=== PATIENT | female | born 1975 | race Caucasian/White ===

== ENCOUNTER → 2019-01-21 14:55 | Outpatient (CLI) | payer OTHER, SELFPAY ==
[2019-01-21 16:37] LABS: Free T3, Triiodothyronine Free 3.63 pg/mL (2.77-5.27); Free T4, Direct Thyroxine 1.24 ng/dL (0.78-2.19)
[2019-01-21 16:51] LABS: Thyroid Stimulating Hormone 2.07 uIU/mL (0.47-4.68)
== END ==
PROVIDERS: Family Provider Family Medicine; PCP Family Medicine
DX: R53.83 Other fatigue (principal)
CPT/HCPCS: 36415; 84439; 84443; 84481

== ENCOUNTER → 2019-06-20 08:05 | Outpatient (CLI) | payer OTHER, SELFPAY ==
--- NOTE | 2019-06-20 08:08 | DI.MG.S_ITS ---
BILATERAL DIGITAL SCREENING MAMMOGRAM 3D/2D WITH CAD: 06/20/2019 CLINICAL: Baseline exam. Routine screening. No prior exams were available for comparison. There are scattered fibroglandular elements in both breasts. Current study was also evaluated with a Computer Aided Detection (CAD) system. No significant masses, calcifications, or other findings are seen in either breast. IMPRESSION: NEGATIVE There is no mammographic evidence of malignancy. A 1 year screening mammogram is recommended. This exam was interpreted at Station ID: [id number]. NOTE: For mammograms, a report in lay terms will be sent to the patient. Approximately 15% of breast malignancies will not be visualized mammographically. In the management of a palpable breast mass, a negative mammogram must not discourage biopsy of a clinically suspicious lesion. Electronically Signed By: Terry hilliard/azeb:06/20/2019 09:09:24 copy to: Adam Mcgovern letter sent: Normal Exam ACR BI-RADS Category 1: Negative [id number]
== END ==
PROVIDERS: Family Provider Family Medicine; PCP Family Medicine
DX: Z12.31 Encounter for screening mammogram for malignant neoplasm of breast (principal)
CPT/HCPCS: 77063; 77067

== ENCOUNTER → 2019-07-15 11:38 | Outpatient (CLI) | payer OTHER, SELFPAY | PROVIDERS: Family Provider Family Medicine; PCP Family Medicine; Visit Provider Physician Assistant | DX: L02.91 Cutaneous abscess, unspecified (principal) | CPT/HCPCS: 87070; 87077; 87205 ==

== ENCOUNTER → 2021-08-20 15:10 | Outpatient (CLI) | payer OTHER, SELFPAY ==
--- NOTE | 2021-08-20 15:11 | DI.RAD.S_ITS ---
PROCEDURE: XR CHEST 2V INDICATIONS: Palpitations, Dyspnea on exertion; Covid 19 inf 06/2021 TECHNIQUE: 2 views of the chest were acquired. COMPARISON: None. FINDINGS: Surgical changes and devices: None. Lungs and pleura: No consolidation, pleural effusions or pneumothorax. Prominence of the central pulmonary vasculature. Mediastinum: Mediastinal contours are normal. Heart size is normal. Bones and chest wall: No suspicious bony abnormalities. Soft tissues appear unremarkable. IMPRESSION: Prominence of the central pulmonary vasculature, which may reflect vascular congestion. Dictated by: Hong Whipple M.D. on 08/20/2021 at 15:28 Approved by: Hong Whipple M.D. on 08/20/2021 at 15:28
--- NOTE | 2021-08-20 15:11 | DI.RAD.S_ITS ---
PROCEDURE: XR SHOULDER LT MIN 2V INDICATIONS: Left shoulder pain TECHNIQUE: 3 views of the shoulder were acquired. COMPARISON: None. FINDINGS: Bones: No fractures or dislocations. No suspicious bony lesions. Visualized ribs appear intact. Soft tissues: Calcific densities overlying the humeral head, compatible with calcific tendinopathy. IMPRESSION: Rotator cuff calcific tendinopathy. Dictated by: Hong Whipple M.D. on 08/20/2021 at 15:29 Approved by: Hong Whipple M.D. on 08/20/2021 at 15:29
== END ==
PROVIDERS: Family Provider Family Medicine; PCP Family Medicine; Referring Provider Physician Assistant; Visit Provider Physician Assistant
DX: M25.512 Pain in left shoulder (principal); R06.00 Dyspnea, unspecified; R53.83 Other fatigue; R63.0 Anorexia; R00.2 Palpitations; Z86.16 Personal history of COVID-19
CPT/HCPCS: 71046; 73030

== ENCOUNTER → 2021-11-27 11:04 | Outpatient (CLI) | payer OTHER, SELFPAY ==
[2021-11-27 12:43] LABS: Cholesterol 260 mg/dL (140-199); HDL Cholesterol 36 mg/dL (40-60); LDL Cholesterol Calculated 180 mg/dL (<100); Triglycerides 222 mg/dL (35-150)
[2021-11-27 13:15] LABS: Thyroid Stimulating Hormone 0.738 uIU/mL (0.47-4.68)
[2021-11-27 15:58] LABS: Creatinine Urine Random 194.3 mg/dL
[2021-11-27 16:03] LABS: Microalbumi Creatinin Ratio Ur 28.3 ug/mg CR (<30); Microalbumin Urine Random 5.5 mg/dL (0-1.6)
== END ==
PROVIDERS: Family Provider Family Medicine; PCP Family Medicine; Referring Provider Physician Assistant; Visit Provider Physician Assistant
DX: I10 Essential (primary) hypertension (principal); R53.83 Other fatigue; Z13.220 Encounter for screening for lipoid disorders; Z13.6 Encounter for screening for cardiovascular disorders
CPT/HCPCS: 36415; 80061; 82043; 82570; 84443

== ENCOUNTER 2021-12-30 16:00 | Outpatient (RCR) | payer OTHER, SELFPAY ==
--- NOTE | 2021-10-01 17:16 | PT.OIE ---
Current Diagnoses Pain in left shoulder (10/01/21) Radiculopathy, site unspecified (10/01/21) Cervicalgia (10/01/21) Muscle weakness (generalized) (10/01/21) Other muscle spasm (10/01/21) Past Medical History (Last Updated 09/15/21 @ 15:48 by Tg Lowe PA-C) Anaphylactic reaction Asthma Cervical pain (neck) Chicken pox (1979) Chronic headaches (1989) COVID-19 virus infection CTS (carpal tunnel syndrome) (2002) Eczema IBS (irritable bowel syndrome) (2003) Left shoulder pain Migraines (1989) Myalgia after COVID-19 vaccination Plantar warts Radiculopathy affecting upper extremity Recurrent sinusitis Skin cancer (1998) Status post wrist surgery (10/2002) Past Surgical History (Last Reviewed 08/16/20 @ 17:03 by ALBERTO Reis) Anesthesia Status post cholecystectomy (12/2003) Status post endoscopic retrograde cholangiopancreatography Status post LASIK surgery (04/2000) Status post wrist surgery (10/2002) Visit Care Team Role Provider Type Adam Mcgovern MD Family Provider Physician Primary Care Provider Specialty: Family Practice Address: [address] [place] [address], [facility] Email: [email or web address] Lowe PA-C Attending Provider Advanced Aquatic Performer Referring Provider Specialty: Medical Address: [address], [employer] Email: [email or web address] Physical Therapy Initial Evaluation PT-OP-A Visit Information Start: 09/27/21 18:38 Freq: Status: Active Protocol: Document 10/01/21 15:03 LRN (Rec: 10/01/21 16:59 LRN [id number]) Out-Patient Physical Therapy Visit Information Visit Information Visit Type Initial Evaluation Visit Start Time 15:03 Visit Stop Time 15:57 Total Visit Minutes 54 Visit Number 1 Evaluation Information Evaluation Date 10/01/21 Precautions Precautions TAPE ALLERGIES. PT-OP-B Current Condition Start: 09/27/21 18:38 Freq: Status: Active Protocol: Document 10/01/21 15:03 LRN (Rec: 10/01/21 16:59 LRN [id number]) Current Condition History of Current Condition Onset Date Jul 28, 2021 Current Complaints Severe pain down the L arm and weakness, numbness in hands. History of Current Condition L shoulder and neck pain. Covid in June. Was constantly fatigued, got booster and within 48 hours could hardly move the L shoulder. In August, started to get tingling and numbness in the lateral hands (little fingers on lateral sides and tips of 4th & 5th fingers) and was told it was inflammation in the neck and has radiated into the shoulders. States she has sheets of white pain down the entire L arm, like she hit her funny bone. The more active she is, the more pain she has. Sleeping is very difficult because she is a side sleeper and briana has had to adjust her sleeping to being on her back. She also has heart arrhythmia onset due to COVID. MH and placing her arm overhead helps decrease the pain. Prior Treatments and Tests Gabapentin to help sleep at night. Future Testing and Treatments Planned Massage therapy & accupuncture appointments. Treatment Goals Patient/Caregiver Goals Pt goal with therapy is to improve ability to sleep, and be able to use L dominant hand correctly, and be able to type on computer. Prior Functional Status Baseline Function- ADL's Independent Baseline Function- Mobility Independent Baseline Function- Work/School Independent Baseline Function- Other Able to sleep on 6-7 hrs at night on sides. Able to get up/down from floor without difficulty Current Functional Impairments (Reported) Functional Limitations- ADL's Not able to sleep on sides due to L shoulder pain. Not able to get up/down from floor. 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 Functional Limitations- Recreation/ Can't do sewing due to pain Hobbies and low stamina. Personal Factors Other Personal Factors That May Effect Hx of chronic headaches. 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 L handed dominant. PT-OP-C Subjective Start: 09/27/21 18:38 Freq: Status: Active Protocol: Document 10/01/21 15:03 LRN (Rec: 10/01/21 16:59 LRN [id number]) Patient Questionnaires Neck Disability Index NDI Score 13 Neck Disability Index Impairment 20 to 39% Impaired (Score 10- 19) Quick Dash- Upper Extremity Quick Dash UE Score 68.18 Quick Dash UE Impairment 60 to 79% Impaired (Score 60- 79) OP-PT Pain Assessment Pain Assessment Grid Paper Pain Assessment Grid Completed Yes Location L shoulder Pain Location Details Pain down back side in AM, entire arm painful in PM Intensity 6 Scale Used Numeric (0 - 10) Description Cramping,Sharp,Shooting,Spasm, Tingling Description- Other Fatiguing Frequency Constant Radiating Location Down arm Pain Aggravating Factors Activity Other Pain Aggravating Factors Lying on L shoulder and increased pain with progression of the day. Pain Alleviating Factors Heat Neck Intensity 0 Scale Used Numeric (0 - 10) Home Pain Medication Use Pain Medications Used Yes Home Pain Medication Frequency Gabapentin nightly & Advil throughout the day. PT-OP-E Functional Tests Start: 09/27/21 18:38 Freq: Status: Active Protocol: Document 10/01/21 15:03 LRN (Rec: 10/01/21 16:59 LRN [id number]) Functional Tests Apley's Scratch Test Action 1- Left Below superior spine of scapula Action 1- Right Below superior spine of scapula Action 2- Left T3 Action 2- Right T3 Action 3- Left T8 Action 3- Right T8 PT-OP-H Neuro Start: 09/27/21 18:38 Freq: Status: Active Protocol: Document 10/01/21 15:03 LRN (Rec: 10/01/21 16:59 LRN [id number]) Sensation Evaluation Gross Sensation Gross Sensation Left UE Impaired,Right UE Impaired Sensation Description Tingling,Pins & Tabor Dermatome Impairments C8 Deep Tendon Reflex & Clonus Assessment Deep Tendon Reflex Bilateral Tricep Deep Tendon Reflex 1+ Diminished Bilateral Brachioradialis Deep Tendon Reflex 2+ Normal Roddy Biceps Deep Tendon Reflex 3+ Normal But Brisk PT-OP-J Posture/Palpation/Skin Start: 09/27/21 18:38 Freq: Status: Active Protocol: Document 10/01/21 15:03 LRN (Rec: 10/01/21 16:59 LRN [id number]) Posture Evaluation Position Standing Head/C-Spine Posture Forward Head T-Spine Posture Flattened L-Spine Posture Increased Lordosis Shoulder Posture (L) Forward Arm Posture (L) Internally Rotated,(R) Internally Rotated Pelvis Posture (L) Iliac Crest Superior Knee Posture (L) Genu Valgus,(R) Genu Valgus Palpation Assessment Location R Scapula Palpation Location Scapular positioning Palpation Details Protracted L Scapula Palpation Location Medial border Palpation Findings Muscle Guarding,Tenderness Posterior Neck Palpation Location C7-T2, L UT Palpation Findings Soft Tissue Tightness, Tenderness PT-OP-K Range of Motion Start: 09/27/21 18:38 Freq: Status: Active Protocol: Document 10/01/21 15:03 LRN (Rec: 10/01/21 16:59 LRN [id number]) Cervical Spine Range of Motion Cervical Spine Active Degrees Testing Position Sitting Flexion 55 Extension 60 Rotation Left 80 Rotation Right 80 Lateral Flexion Left 38 Lateral Flexion Right 32 ROM Limitations Muscle Weakness Shoulder Goniometric Range of Motion Shoulder Right Active Shoulder ROM WFL Yes Testing Position Sitting Flexion 180 Abduction 180 External Rotation at 0 degrees Abduction 70 Left Active Shoulder ROM WFL Yes Testing Position Sitting Flexion 180 Extension 180 External Rotation at 0 degrees Abduction 70 Elbow/Forearm Range of Motion Elbow/Forearm Right Active Elbow/Forearm ROM WFL Yes ROM Testing Position Sitting Left Active Elbow/Forearm ROM WFL Yes ROM Testing Position Sitting PT-OP-L Special Tests Start: 09/27/21 18:38 Freq: Status: Active Protocol: Document 10/01/21 15:03 LRN (Rec: 10/01/21 16:59 LRN [id number]) Special Tests Cervical Spine Special Tests Upper Limb Tension Test Test Results Positive ulnar n bilaterally and medial n. L UE, neg radial n.test Comments Stretch felt. Vertebral Artery Test Results Negative bilaterally Traction Test Results Onset feeling of warmth f/b tingling in R arm Comments Inconclusive results Foraminal Compression Test Results Negative bilaterally Spurling's Test Test Results Negative bilaterally PT-OP-M Strength Start: 09/27/21 18:38 Freq: Status: Active Protocol: Document 10/01/21 15:03 LRN (Rec: 10/01/21 16:59 LRN [id number]) Cervical Spine Strength Cervical Spine Manual Muscle Testing Testing Position Sitting Comments Generally 5/5 Shoulder Strength Shoulder Manual Muscle Testing Right Flexion 5 Normal Extension 5 Normal Abduction (C5) 5 Normal Adduction 5 Normal External Rotation 5 Normal Internal Rotation 5 Normal Left Flexion 5 Normal Extension 5 Normal Abduction (C5) 5 Normal Adduction 4 Good External Rotation 5 Normal Internal Rotation 5 Normal Comments Pain in medial border of scapula with MMT of shoulder flex & IR Elbow/Forearm Strength Elbow and Forearm Manual Muscle Testing Right Flexion (C6) 5 Normal Extension (C7) 5 Normal Left Flexion (C6) 5 Normal Extension (C7) 4 Good PT-OP-Q Treatments Start: 09/27/21 18:38 Freq: Status: Active Protocol: Document 10/01/21 15:03 LRN (Rec: 10/01/21 16:59 LRN [id number]) Self-Care/Home Management Treatment Education Other Education Discussed results of evaluation, goals, and plan of care (POC). Pt agreeable to goals and POC. Activities Self-Care/Home Management Activities Pt I/S in deep cervical neck flexor contraction for improving sitting posture and added thoracic flexion to her home pec stretch routine. PT-OP-T Assessment and Plan Start: 09/27/21 18:38 Freq: Status: Active Protocol: Document 10/01/21 15:03 LRN (Rec: 10/01/21 16:59 LRN [id number]) Physical Therapy Assessment Rehab Potential Rehabilitation Potential Good Evaluation Complexity Number of Personal Factors/Comorbidities 3 or More Number of Body Systems Impaired 4 or More Clinical Presentation at Evaluation Evolving Impairments Impairments Activity Tolerance,Pain, Posture,Strength Goals Three Impairment Decreased L UE function ( QUICKdash score 68). Impairment Quickdash: 60-79% impaired ( score 60-70). Short Term Goal (STG) Pt will be able to report improved use of her L dominant hand with more accuracy with brushing of teeth. STG Duration 11/15/21 [place] Goal (LTG) Pt will be able to type on computer with accuracy of prior function. LTG Duration 12/30/21 Two Impairment Decreased ability to sleep at night due to L shoulder pain. Short Term Goal (STG) Pt will be educated in proper nighttime posturing for sleep to minimize L shoulder pain. STG Duration 10/11/21 Intermediate Goal (LTG) Pt will be able to improve ability to sleep at night to 6 -7 hrs. LTG Duration 12/30/21 One Impairment Pt lacks appropriates self care HEP. Short Term Goal (STG) Pt will be educated in proper head/neck posturing. STG Duration 10/18/21 Intermediate Goal (LTG) Pt will be independent in a self care HEP shoulder & elbow strengthening and ex's to assist in proper posturing. LTG Duration 12/30/21 Assessment Summary Assessment Pt presents with mechanical and soft tissue dysfunction of the cervical and thoracic spine with symptoms of C7 neurological L UE pain and sensation changes in the bilateral lateral hands and little fingers (on lateral side and finger tips). The pt has numbness tingling in the R arm but no pain. She demonstrates some tightness in her L upper trapezius muscle, weakness in her L shoulder adductors and L triceps (C7), and pain down medial border of L scapula. The pt will benefit from skilled physical therapy to work towards achieving the above stated goals. Physical Therapy Plan Frequency and Duration Frequency of Treatment 2x/Week Plan of Care Start Date 10/01/21 Plan of Care End Date 12/30/21 Therapeutic Interventions Therapeutic Interventions Home Exercise Program,Joint Mobilizations,Manual Therapy, Patient/Caregiver Education, Self-Care/Home Management,Soft Tissue Mobilization, Therapeutic Exercises Modalities Cold Pack/Ice Massage,Electric Stimulation,Hot Packs, Ultrasound Next Visit Focus/Plan Next Visit Plan Educate pt in proper proper posturing of head/neck, Educate pt in proper nighttime sleeping position to minimize L shoulder pain, STM of cervical/thoracic spine as needed. JMT: C7. Exer: C.AROM & L UT stretch ( and for HEP), L tricep & shoulder AD strengthening. Stretch: mid thoracic rotation & flexion. End MH/IFES [L scapula] or [C7 /T1]
--- NOTE | 2021-10-01 17:16 | PT.OPPOC ---
Physical, Occupational & Speech Therapy At [facility] Current Diagnoses Pain in left shoulder (10/01/21) Radiculopathy, site unspecified (10/01/21) Cervicalgia (10/01/21) Muscle weakness (generalized) (10/01/21) Other muscle spasm (10/01/21) Visit Care Team Role Provider Type Adam Mcgovern MD Family Provider Physician Primary Care Provider Specialty: Family Practice Address: [address] [place] [address], [id number] Email: [email or web address] Lowe PA-C Attending Provider Advanced Assistant Designer Referring Provider Specialty: Medical Address: [address], [address] Email: [email or web address] Plan Of Care PT-OP-T Assessment and Plan Start: 09/27/21 18:38 Freq: Status: Active Protocol: Document 10/01/21 15:03 LRN (Rec: 10/01/21 16:59 LRN [id number]) Physical Therapy Assessment Rehab Potential Rehabilitation Potential Good Evaluation Complexity Number of Personal Factors/Comorbidities 3 or More Number of Body Systems Impaired 4 or More Clinical Presentation at Evaluation Evolving Impairments Impairments Activity Tolerance,Pain, Posture,Strength Goals Three Impairment Decreased L UE function ( QUICKdash score 68). Impairment Quickdash: 60-79% impaired ( score 60-70). Short Term Goal (STG) Pt will be able to report improved use of her L dominant hand with more accuracy with brushing of teeth. STG Duration 11/15/21 Fountain Operator Goal (LTG) Pt will be able to type on computer with accuracy of prior function. LTG Duration 12/30/21 Two Impairment Decreased ability to sleep at night due to L shoulder pain. Short Term Goal (STG) Pt will be educated in proper nighttime posturing for sleep to minimize L shoulder pain. STG Duration 10/11/21 Senior Care Goal (LTG) Pt will be able to improve ability to sleep at night to 6 -7 hrs. LTG Duration 12/30/21 One Impairment Pt lacks appropriates self care HEP. Short Term Goal (STG) Pt will be educated in proper head/neck posturing. STG Duration 10/18/21 Senior Care Goal (LTG) Pt will be independent in a self care HEP shoulder & elbow strengthening and ex's to assist in proper posturing. LTG Duration 12/30/21 Assessment Summary Assessment Pt presents with mechanical and soft tissue dysfunction of the cervical and thoracic spine with symptoms of C7 neurological L UE pain and sensation changes in the bilateral lateral hands and little fingers (on lateral side and finger tips). The pt has numbness tingling in the R arm but no pain. She demonstrates some tightness in her L upper trapezius muscle, weakness in her L shoulder adductors and L triceps (C7), and pain down medial border of L scapula. The pt will benefit from skilled physical therapy to work towards achieving the above stated goals. Physical Therapy Plan Frequency and Duration Frequency of Treatment 2x/Week Plan of Care Start Date 10/01/21 Plan of Care End Date 12/30/21 Therapeutic Interventions Therapeutic Interventions Home Exercise Program,Joint Mobilizations,Manual Therapy, Patient/Caregiver Education, Self-Care/Home Management,Soft Tissue Mobilization, Therapeutic Exercises Modalities Cold Pack/Ice Massage,Electric Stimulation,Hot Packs, Ultrasound Next Visit Focus/Plan Next Visit Plan Educate pt in proper proper posturing of head/neck, Educate pt in proper nighttime sleeping position to minimize L shoulder pain, STM of cervical/thoracic spine as needed. JMT: C7. Exer: C.AROM & L UT stretch ( and for HEP), L tricep & shoulder AD strengthening. Stretch: mid thoracic rotation & flexion. End MH/IFES [L scapula] or [C7 /T1] Plan of Care Dates Plan of Care Start Date 10/01/21 Plan of Care End Date 12/30/21 Electronically Signed by: Maribel Elliott, PT 10/01/21 [id number] Please Sign and Return: I have reviewed this Plan of Care and certify that the skilled therapy services above are required to meet the patient?s needs. Physician Signature Date Printed Name and Credentials Clinical Instructor Signature Printed Name and Credentials
--- NOTE | 2021-10-12 16:09 | PT.OTN ---
Current Diagnoses Pain in left shoulder (10/12/21) Radiculopathy, site unspecified (10/12/21) Cervicalgia (10/12/21) Muscle weakness (generalized) (10/12/21) Other muscle spasm (10/12/21) Physical Therapy Treatment Note PT-OP-A Visit Information Start: 09/27/21 18:38 Freq: Status: Active Protocol: Document 10/12/21 15:05 LRN (Rec: 10/12/21 16:07 LRN [id number]) Out-Patient Physical Therapy Visit Information Visit Information Visit Type Treatment Note Visit Start Time 15:05 Visit Stop Time 15:49 Total Visit Minutes 44 Visit Number 2 Evaluation Information Evaluation Date 10/01/21 Precautions Precautions TAPE ALLERGIES. PT-OP-B Current Condition Start: 09/27/21 18:38 Freq: Status: Active Protocol: Document 10/01/21 15:03 LRN (Rec: 10/01/21 16:59 LRN [id number]) Current Condition History of Current Condition Onset Date Jul 28, 2021 Current Complaints Severe pain down the L arm and weakness, numbness in hands. History of Current Condition L shoulder and neck pain. Covid in June. Was constantly fatigued, got booster and within 48 hours could hardly move the L shoulder. In August, started to get tingling and numbness in the lateral hands (little fingers on lateral sides and tips of 4th & 5th fingers) and was told it was inflammation in the neck and has radiated into the shoulders. States she has sheets of white pain down the entire L arm, like she hit her funny bone. The more active she is, the more pain she has. Sleeping is very difficult because she is a side sleeper and se has had to adjust her sleeping to being on her back. She also has heart arrhythmia onset due to COVID. MH and placing her arm overhead helps decrease the pain. Prior Treatments and Tests Gabapentin to help sleep at night. Future Testing and Treatments Planned Massage therapy & accupuncture appointments. Treatment Goals Patient/Caregiver Goals Pt goal with therapy is to improve ability to sleep, and be able to use L dominant hand correctly, and be able to type on computer. Prior Functional Status Baseline Function- ADL's Independent Baseline Function- Mobility Independent Baseline Function- Work/School Independent Baseline Function- Other Able to sleep on 6-7 hrs at night on sides. Able to get up/down from floor without difficulty Current Functional Impairments (Reported) Functional Limitations- ADL's Not able to sleep on sides due to L shoulder pain. Not able to get up/down from floor. 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 Functional Limitations- Recreation/ Can't do sewing due to pain Hobbies and low stamina. Personal Factors Other Personal Factors That May Effect Hx of chronic headaches. 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 L handed dominant. PT-OP-C Subjective Start: 09/27/21 18:38 Freq: Status: Active Protocol: Document 10/12/21 15:05 LRN (Rec: 10/12/21 16:07 LRN [id number]) OP-PT Subjective Patient Comments Patient Comments States she sleeps on her back and has a sleep number pillow and that keeps her head/neck in alignment. Less tingling in the both hands and no numbness in the ring finger. Starts without numbness or tingling, but comes on as day progressess. Today numbnes/ tingling in R fingers, L arm numbness, mostly tingling. PT-OP-E Functional Tests Start: 09/27/21 18:38 Freq: Status: Active Protocol: Document 10/01/21 15:03 LRN (Rec: 10/01/21 16:59 LRN [id number]) Functional Tests Apley's Scratch Test Action 1- Left Below superior spine of scapula Action 1- Right Below superior spine of scapula Action 2- Left T3 Action 2- Right T3 Action 3- Left T8 Action 3- Right T8 PT-OP-H Neuro Start: 09/27/21 18:38 Freq: Status: Active Protocol: Document 10/01/21 15:03 LRN (Rec: 10/01/21 16:59 LRN [id number]) Sensation Evaluation Gross Sensation Gross Sensation Left UE Impaired,Right UE Impaired Sensation Description Tingling,Pins & Draper Dermatome Impairments C8 Deep Tendon Reflex & Clonus Assessment Deep Tendon Reflex Bilateral Tricep Deep Tendon Reflex 1+ Diminished Bilateral Brachioradialis Deep Tendon Reflex 2+ Normal Roddy Biceps Deep Tendon Reflex 3+ Normal But Brisk PT-OP-J Posture/Palpation/Skin Start: 09/27/21 18:38 Freq: Status: Active Protocol: Document 10/01/21 15:03 LRN (Rec: 10/01/21 16:59 LRN [id number]) Posture Evaluation Position Standing Head/C-Spine Posture Forward Head T-Spine Posture Flattened L-Spine Posture Increased Lordosis Shoulder Posture (L) Forward Arm Posture (L) Internally Rotated,(R) Internally Rotated Pelvis Posture (L) Iliac Crest Superior Knee Posture (L) Genu Valgus,(R) Genu Valgus Palpation Assessment Location R Scapula Palpation Location Scapular positioning Palpation Details Protracted L Scapula Palpation Location Medial border Palpation Findings Muscle Guarding,Tenderness Posterior Neck Palpation Location C7-T2, L UT Palpation Findings Soft Tissue Tightness, Tenderness PT-OP-K Range of Motion Start: 09/27/21 18:38 Freq: Status: Active Protocol: Document 10/01/21 15:03 LRN (Rec: 10/01/21 16:59 LRN [id number]) Cervical Spine Range of Motion Cervical Spine Active Degrees Testing Position Sitting Flexion 55 Extension 60 Rotation Left 80 Rotation Right 80 Lateral Flexion Left 38 Lateral Flexion Right 32 ROM Limitations Muscle Weakness Shoulder Goniometric Range of Motion Shoulder Right Active Shoulder ROM WFL Yes Testing Position Sitting Flexion 180 Abduction 180 External Rotation at 0 degrees Abduction 70 Left Active Shoulder ROM WFL Yes Testing Position Sitting Flexion 180 Extension 180 External Rotation at 0 degrees Abduction 70 Elbow/Forearm Range of Motion Elbow/Forearm Right Active Elbow/Forearm ROM WFL Yes ROM Testing Position Sitting Left Active Elbow/Forearm ROM WFL Yes ROM Testing Position Sitting PT-OP-L Special Tests Start: 09/27/21 18:38 Freq: Status: Active Protocol: Document 10/01/21 15:03 LRN (Rec: 10/01/21 16:59 LRN [id number]) Special Tests Cervical Spine Special Tests Upper Limb Tension Test Test Results Positive ulnar n bilaterally and medial n. L UE, neg radial n.test Comments Stretch felt. Vertebral Artery Test Results Negative bilaterally Traction Test Results Onset feeling of warmth f/b tingling in R arm Comments Inconclusive results Foraminal Compression Test Results Negative bilaterally Spurling's Test Test Results Negative bilaterally PT-OP-M Strength Start: 09/27/21 18:38 Freq: Status: Active Protocol: Document 10/01/21 15:03 LRN (Rec: 10/01/21 16:59 LRN [id number]) Cervical Spine Strength Cervical Spine Manual Muscle Testing Testing Position Sitting Comments Generally 5/5 Shoulder Strength Shoulder Manual Muscle Testing Right Flexion 5 Normal Extension 5 Normal Abduction (C5) 5 Normal Adduction 5 Normal External Rotation 5 Normal Internal Rotation 5 Normal Left Flexion 5 Normal Extension 5 Normal Abduction (C5) 5 Normal Adduction 4 Good External Rotation 5 Normal Internal Rotation 5 Normal Comments Pain in medial border of scapula with MMT of shoulder flex & IR Elbow/Forearm Strength Elbow and Forearm Manual Muscle Testing Right Flexion (C6) 5 Normal Extension (C7) 5 Normal Left Flexion (C6) 5 Normal Extension (C7) 4 Good PT-OP-Q Treatments Start: 09/27/21 18:38 Freq: Status: Active Protocol: Document 10/12/21 15:05 LRN (Rec: 10/12/21 16:07 LRN [id number]) Therapeutic Exercises Supine Exercises Supine to Sit Supine Exercise Name Sup to sit traninng while holding head/neck in good posture Reps/Minutes 3' Comments phys & v cuing needed throughout transfer and reinforced during sitting Deep Cervical Neck Flexors Supine Exercise Name Head to direction of distraction Reps/Minutes 5 Hold, intermittent for 3' Standing Exercises Postural training Standing Exercise Name Postural trng: neck elongated, steam pan sponger pelvic tilt, TA on, knees relaxed Reps/Minutes 3' Manual Therapy Treatment Soft Tissue Mobilization Paraspinals Body Location Lower C/S & upper T/S Mobilization Type Strumming,Sustained Pressure Intensity/Depth Moderate Body Position Supine Joint Mobilizations C7, T1 Joint C7, T1 Direction PA Body Position Supine Reps/Duration 6' Manual Traction Cervical Details Traction in various angle of pull (C7, axial, and 30 deg's flex) Body Position Supine Reps/Duration 3x Self-Care/Home Management Treatment Education Other Education Educated pt in proper posturing of head/neck in sitting, in car, when using computer and reading a book. Educated pt in proper head/ neck nighttime sleeping posture (to minimize L shoulder pain). Activities Self-Care/Home Management Activities Reviewed deep Cervical neck flexor ex for maintaining good head/neck posture. I/S pt to use wall for her thoracic ex of breathing to open the chest. PT-OP-T Assessment and Plan Start: 09/27/21 18:38 Freq: Status: Active Protocol: Document 10/12/21 15:05 LRN (Rec: 02/08/22 16:07 LRN [id number]) Physical Therapy Assessment Goals Three Impairment Decreased L UE function ( QUICKdash score 68). Impairment Quickdash: 60-79% impaired ( score 60-70). Short Term Goal (STG) Pt will be able to report improved use of her L dominant hand with more accuracy with brushing of teeth. STG Duration 11/15/21 Veneer Cutter Goal (LTG) Pt will be able to type on computer with accuracy of prior function. LTG Duration 12/30/21 Two Impairment Decreased ability to sleep at night due to L shoulder pain. Short Term Goal (STG) Pt will be educated in proper nighttime posturing for sleep to minimize L shoulder pain. STG Duration 10/11/21 (10/12/21: MET GOAL) Veneer Cutter Goal (LTG) Pt will be able to improve ability to sleep at night to 6 -7 hrs. LTG Duration 12/30/21 One Impairment Pt lacks appropriates self care HEP. Short Term Goal (STG) Pt will be educated in proper head/neck posturing. STG Duration 10/18/21 (10/12/21: MET GOAL) Veneer Cutter Goal (LTG) Pt will be independent in a self care HEP shoulder & elbow strengthening and ex's to assist in proper posturing. LTG Duration 12/30/21 Progress Towards Goals Progress Towards Goals Progressing Toward Goals Progress Comments STG #1, #2: MET GOAL. Assessment Summary Assessment + response to STM of lower C/S and upper T/S paraspinals and balancing of C7/T1. Post therapy pt had resolve of toothache pain in the L elbow and tingling of fingers. Numbness of the fingertips was still present. Physical Therapy Plan Frequency and Duration Frequency of Treatment 2x/Week Plan of Care Start Date 10/01/21 Plan of Care End Date 12/30/21 Next Visit Focus/Plan Next Visit Plan STM of cervical/thoracic spine as needed. JMT: C7. Exer: C.AROM & L UT stretch ( and for HEP), L tricep & shoulder AD strengthening. Stretch: mid thoracic rotation & flexion. End MH/IFES [L scapula] or [C7 /T1]
--- NOTE | 2021-10-15 16:07 | PT.OTN ---
Current Diagnoses Pain in left shoulder (10/15/21) Radiculopathy, site unspecified (10/15/21) Cervicalgia (10/15/21) Muscle weakness (generalized) (10/15/21) Other muscle spasm (10/15/21) Physical Therapy Treatment Note PT-OP-A Visit Information Start: 09/27/21 18:38 Freq: Status: Active Protocol: Document 10/15/21 15:04 LRN (Rec: 10/15/21 16:05 LRN [id number]) Out-Patient Physical Therapy Visit Information Visit Information Visit Type Treatment Note Visit Start Time 15:04 Visit Stop Time 15:45 Total Visit Minutes 45 Visit Number 3 Evaluation Information Evaluation Date 10/01/21 Precautions Precautions TAPE ALLERGIES. PT-OP-B Current Condition Start: 09/27/21 18:38 Freq: Status: Active Protocol: Document 10/01/21 15:03 LRN (Rec: 10/01/21 16:59 LRN [id number]) Current Condition History of Current Condition Onset Date Jul 28, 2021 Current Complaints Severe pain down the L arm and weakness, numbness in hands. History of Current Condition L shoulder and neck pain. Covid in June. Was constantly fatigued, got booster and within 48 hours could hardly move the L shoulder. In August, started to get tingling and numbness in the lateral hands (little fingers on lateral sides and tips of 4th & 5th fingers) and was told it was inflammation in the neck and has radiated into the shoulders. States she has sheets of white pain down the entire L arm, like she hit her funny bone. The more active she is, the more pain she has. Sleeping is very difficult because she is a side sleeper and se has had to adjust her sleeping to being on her back. She also has heart arrhythmia onset due to COVID. MH and placing her arm overhead helps decrease the pain. Prior Treatments and Tests Gabapentin to help sleep at night. Future Testing and Treatments Planned Massage therapy & accupuncture appointments. Treatment Goals Patient/Caregiver Goals Pt goal with therapy is to improve ability to sleep, and be able to use L dominant hand correctly, and be able to type on computer. Prior Functional Status Baseline Function- ADL's Independent Baseline Function- Mobility Independent Baseline Function- Work/School Independent Baseline Function- Other Able to sleep on 6-7 hrs at night on sides. Able to get up/down from floor without difficulty Current Functional Impairments (Reported) Functional Limitations- ADL's Not able to sleep on sides due to L shoulder pain. Not able to get up/down from floor. 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 Functional Limitations- Recreation/ Can't do sewing due to pain Hobbies and low stamina. Personal Factors Other Personal Factors That May Effect Hx of chronic headaches. 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 L handed dominant. PT-OP-C Subjective Start: 09/27/21 18:38 Freq: Status: Active Protocol: Document 10/15/21 15:04 LRN (Rec: 10/15/21 16:05 LRN [id number]) OP-PT Subjective Patient Comments Patient Comments STates her muscles are getting tired from maintaining good posture;therefore is more sore . HAsn't been using towel roll at school but uses it in the car. PT-OP-E Functional Tests Start: 09/27/21 18:38 Freq: Status: Active Protocol: Document 10/01/21 15:03 LRN (Rec: 10/01/21 16:59 LRN [id number]) Functional Tests Apley's Scratch Test Action 1- Left Below superior spine of scapula Action 1- Right Below superior spine of scapula Action 2- Left T3 Action 2- Right T3 Action 3- Left T8 Action 3- Right T8 PT-OP-H Neuro Start: 09/27/21 18:38 Freq: Status: Active Protocol: Document 10/01/21 15:03 LRN (Rec: 10/01/21 16:59 LRN [id number]) Sensation Evaluation Gross Sensation Gross Sensation Left UE Impaired,Right UE Impaired Sensation Description Tingling,Pins & Comstock Dermatome Impairments C8 Deep Tendon Reflex & Clonus Assessment Deep Tendon Reflex Bilateral Tricep Deep Tendon Reflex 1+ Diminished Bilateral Brachioradialis Deep Tendon Reflex 2+ Normal Roddy Biceps Deep Tendon Reflex 3+ Normal But Brisk PT-OP-J Posture/Palpation/Skin Start: 09/27/21 18:38 Freq: Status: Active Protocol: Document 10/01/21 15:03 LRN (Rec: 10/01/21 16:59 LRN [id number]) Posture Evaluation Position Standing Head/C-Spine Posture Forward Head T-Spine Posture Flattened L-Spine Posture Increased Lordosis Shoulder Posture (L) Forward Arm Posture (L) Internally Rotated,(R) Internally Rotated Pelvis Posture (L) Iliac Crest Superior Knee Posture (L) Genu Valgus,(R) Genu Valgus Palpation Assessment Location R Scapula Palpation Location Scapular positioning Palpation Details Protracted L Scapula Palpation Location Medial border Palpation Findings Muscle Guarding,Tenderness Posterior Neck Palpation Location C7-T2, L UT Palpation Findings Soft Tissue Tightness, Tenderness PT-OP-K Range of Motion Start: 09/27/21 18:38 Freq: Status: Active Protocol: Document 10/01/21 15:03 LRN (Rec: 10/01/21 16:59 LRN [id number]) Cervical Spine Range of Motion Cervical Spine Active Degrees Testing Position Sitting Flexion 55 Extension 60 Rotation Left 80 Rotation Right 80 Lateral Flexion Left 38 Lateral Flexion Right 32 ROM Limitations Muscle Weakness Shoulder Goniometric Range of Motion Shoulder Right Active Shoulder ROM WFL Yes Testing Position Sitting Flexion 180 Abduction 180 External Rotation at 0 degrees Abduction 70 Left Active Shoulder ROM WFL Yes Testing Position Sitting Flexion 180 Extension 180 External Rotation at 0 degrees Abduction 70 Elbow/Forearm Range of Motion Elbow/Forearm Right Active Elbow/Forearm ROM WFL Yes ROM Testing Position Sitting Left Active Elbow/Forearm ROM WFL Yes ROM Testing Position Sitting PT-OP-L Special Tests Start: 09/27/21 18:38 Freq: Status: Active Protocol: Document 10/01/21 15:03 LRN (Rec: 10/01/21 16:59 LRN [id number]) Special Tests Cervical Spine Special Tests Upper Limb Tension Test Test Results Positive ulnar n bilaterally and medial n. L UE, neg radial n.test Comments Stretch felt. Vertebral Artery Test Results Negative bilaterally Traction Test Results Onset feeling of warmth f/b tingling in R arm Comments Inconclusive results Foraminal Compression Test Results Negative bilaterally Spurling's Test Test Results Negative bilaterally PT-OP-M Strength Start: 09/27/21 18:38 Freq: Status: Active Protocol: Document 10/01/21 15:03 LRN (Rec: 10/01/21 16:59 LRN [id number]) Cervical Spine Strength Cervical Spine Manual Muscle Testing Testing Position Sitting Comments Generally 5/5 Shoulder Strength Shoulder Manual Muscle Testing Right Flexion 5 Normal Extension 5 Normal Abduction (C5) 5 Normal Adduction 5 Normal External Rotation 5 Normal Internal Rotation 5 Normal Left Flexion 5 Normal Extension 5 Normal Abduction (C5) 5 Normal Adduction 4 Good External Rotation 5 Normal Internal Rotation 5 Normal Comments Pain in medial border of scapula with MMT of shoulder flex & IR Elbow/Forearm Strength Elbow and Forearm Manual Muscle Testing Right Flexion (C6) 5 Normal Extension (C7) 5 Normal Left Flexion (C6) 5 Normal Extension (C7) 4 Good PT-OP-Q Treatments Start: 09/27/21 18:38 Freq: Status: Active Protocol: Document 10/15/21 15:04 LRN (Rec: 10/15/21 16:05 LRN [id number]) Therapeutic Exercises Standing Exercises Shoulder rolls Standing Exercise Name Fwd/Bkwd shoulder rolls Side bilateral Comments DC'd bkwd rolls due to onset of numbness tingling in hands. Postural training Standing Exercise Name Postural trng: neck elongated, pizza hut assistant pelvic tilt, TA on, knees relaxed Reps/Minutes 3' Manual Therapy Treatment Soft Tissue Mobilization Paraspinals Body Location Cervical R>L Mobilization Type Strumming,Sustained Pressure Intensity/Depth Moderate Body Position Supine Joint Mobilizations Thoracic spine Joint Thoracic spine Direction rotation Grade II Body Position Prone Reps/Duration 12' C7, T1 Joint C6-C7, C7-T1 Direction PA Grade II Body Position Supine Reps/Duration 8' Manual Traction Cervical Details Traction in various angle of pull (C7, axial, and 30 deg's flex) Body Position Supine Reps/Duration 3x Comments 9' Self-Care/Home Management Treatment Education Patient Education Home Exercise Program Activities Self-Care/Home Management Activities I/S pt to do forward shoulder rolls 5x when needed to relieve tension. PT-OP-T Assessment and Plan Start: 09/27/21 18:38 Freq: Status: Active Protocol: Document 10/15/21 15:04 LRN (Rec: 10/15/21 16:05 LRN [id number]) Physical Therapy Assessment Goals Three Impairment Decreased L UE function ( QUICKdash score 68). Impairment Quickdash: 60-79% impaired ( score 60-70). Short Term Goal (STG) Pt will be able to report improved use of her L dominant hand with more accuracy with brushing of teeth. STG Duration 11/15/21 Fci Goal (LTG) Pt will be able to type on computer with accuracy of prior function. LTG Duration 12/30/21 Two Impairment Decreased ability to sleep at night due to L shoulder pain. Short Term Goal (STG) Pt will be educated in proper nighttime posturing for sleep to minimize L shoulder pain. STG Duration 10/11/21 (10/12/21: MET GOAL) Lens Examiner Goal (LTG) Pt will be able to improve ability to sleep at night to 6 -7 hrs. LTG Duration 12/30/21 One Impairment Pt lacks appropriates self care HEP. Short Term Goal (STG) Pt will be educated in proper head/neck posturing. STG Duration 10/18/21 (10/12/21: MET GOAL) Lens Examiner Goal (LTG) Pt will be independent in a self care HEP shoulder & elbow strengthening and ex's to assist in proper posturing. (10/15/21: I/S in fwd shoulder rolls to relieve tension in Rhomboids). LTG Duration 12/30/21 Progress Towards Goals Progress Comments Resolution of bilateral hand pain after therapy of STM. Assessment Summary Assessment Mechanical/soft tissue dysfunction ~C7 resulting in roddy hand pain. Pt T/S appears flattened, probably due to rhomboid holding of upper back from weight of breasts. Mobilization into flexion would be beneficial in the T/S if C6-T1 could be stabilized. Elimination of symptoms of 5th digit tip numbness bilaterally with STM of R paraspinals (primarily on R side for derotation of R rotated C5, C6), and MFR traction between the two. Pt C/S is unstable with variable onset of hand pain and occasional R elbow pain with PA of C6, C7. No pain or complaints at end of therapy. Physical Therapy Plan Frequency and Duration Frequency of Treatment 2x/Week Plan of Care Start Date 10/01/21 Plan of Care End Date 12/30/21 Next Visit Focus/Plan Next Visit Plan STM of cervical/thoracic paraspinals. JMT: C7 & upper Thoracic spine for flexion . Exer: when C/S stable, C.AROM & L UT stretch (and for HEP), Try starting C/S stab with L tricep & shoulder AD strengthening. Stretch: mid thoracic rotation & flexion. End MH/IFES [L scapula] or [C7 /T1].
--- NOTE | 2021-10-18 16:25 | PT.OTN ---
Current Diagnoses Pain in left shoulder (10/18/21) Radiculopathy, site unspecified (10/18/21) Cervicalgia (10/18/21) Muscle weakness (generalized) (10/18/21) Other muscle spasm (10/18/21) Physical Therapy Treatment Note PT-OP-A Visit Information Start: 09/27/21 18:38 Freq: Status: Active Protocol: Document 10/18/21 10:19 LRN (Rec: 10/18/21 16:24 LRN [id number]) Out-Patient Physical Therapy Visit Information Visit Information Visit Type Treatment Note Visit Start Time 15:20 Visit Stop Time 16:05 Total Visit Minutes 45 Visit Number 4 Evaluation Information Evaluation Date 10/01/21 Precautions Precautions TAPE ALLERGIES. PT-OP-B Current Condition Start: 09/27/21 18:38 Freq: Status: Active Protocol: Document 10/01/21 15:03 LRN (Rec: 10/01/21 16:59 LRN [id number]) Current Condition History of Current Condition Onset Date Jul 28, 2021 Current Complaints Severe pain down the L arm and weakness, numbness in hands. History of Current Condition L shoulder and neck pain. Covid in June. Was constantly fatigued, got booster and within 48 hours could hardly move the L shoulder. In August, started to get tingling and numbness in the lateral hands (little fingers on lateral sides and tips of 4th & 5th fingers) and was told it was inflammation in the neck and has radiated into the shoulders. States she has sheets of white pain down the entire L arm, like she hit her funny bone. The more active she is, the more pain she has. Sleeping is very difficult because she is a side sleeper and se has had to adjust her sleeping to being on her back. She also has heart arrhythmia onset due to COVID. MH and placing her arm overhead helps decrease the pain. Prior Treatments and Tests Gabapentin to help sleep at night. Future Testing and Treatments Planned Massage therapy & accupuncture appointments. Treatment Goals Patient/Caregiver Goals Pt goal with therapy is to improve ability to sleep, and be able to use L dominant hand correctly, and be able to type on computer. Prior Functional Status Baseline Function- ADL's Independent Baseline Function- Mobility Independent Baseline Function- Work/School Independent Baseline Function- Other Able to sleep on 6-7 hrs at night on sides. Able to get up/down from floor without difficulty Current Functional Impairments (Reported) Functional Limitations- ADL's Not able to sleep on sides due to L shoulder pain. Not able to get up/down from floor. 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 Functional Limitations- Recreation/ Can't do sewing due to pain Hobbies and low stamina. Personal Factors Other Personal Factors That May Effect Hx of chronic headaches. 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 L handed dominant. PT-OP-C Subjective Start: 09/27/21 18:38 Freq: Status: Active Protocol: Document 10/18/21 10:19 LRN (Rec: 10/18/21 16:24 LRN [id number]) OP-PT Subjective Patient Comments Patient Comments ...........Sat spent a lot of time in the car. In alignment the trevor does pretty good. States it takes ahile to recover fro therapy. Yesterday lifted something too heavy (was able to lift a light load). In alighment to day without needing toewel rol . The back of the L arm is hurting. Now having twinges of pain. Spouse states she is sleeping deep all night, and one night she woke on her L side because of needing to use the bathroom, not because of L shoulder pain. PT-OP-E Functional Tests Start: 09/27/21 18:38 Freq: Status: Active Protocol: Document 10/01/21 15:03 LRN (Rec: 10/01/21 16:59 LRN [id number]) Functional Tests Apley's Scratch Test Action 1- Left Below superior spine of scapula Action 1- Right Below superior spine of scapula Action 2- Left T3 Action 2- Right T3 Action 3- Left T8 Action 3- Right T8 PT-OP-H Neuro Start: 09/27/21 18:38 Freq: Status: Active Protocol: Document 10/01/21 15:03 LRN (Rec: 10/01/21 16:59 LRN [id number]) Sensation Evaluation Gross Sensation Gross Sensation Left UE Impaired,Right UE Impaired Sensation Description Tingling,Pins & [place] Dermatome Impairments C8 Deep Tendon Reflex & Clonus Assessment Deep Tendon Reflex Bilateral Tricep Deep Tendon Reflex 1+ Diminished Bilateral Brachioradialis Deep Tendon Reflex 2+ Normal Roddy Biceps Deep Tendon Reflex 3+ Normal But Brisk PT-OP-J Posture/Palpation/Skin Start: 09/27/21 18:38 Freq: Status: Active Protocol: Document 10/01/21 15:03 LRN (Rec: 10/01/21 16:59 LRN [id number]) Posture Evaluation Position Standing Head/C-Spine Posture Forward Head T-Spine Posture Flattened L-Spine Posture Increased Lordosis Shoulder Posture (L) Forward Arm Posture (L) Internally Rotated,(R) Internally Rotated Pelvis Posture (L) Iliac Crest Superior Knee Posture (L) Genu Valgus,(R) Genu Valgus Palpation Assessment Location R Scapula Palpation Location Scapular positioning Palpation Details Protracted L Scapula Palpation Location Medial border Palpation Findings Muscle Guarding,Tenderness Posterior Neck Palpation Location C7-T2, L UT Palpation Findings Soft Tissue Tightness, Tenderness PT-OP-K Range of Motion Start: 09/27/21 18:38 Freq: Status: Active Protocol: Document 10/01/21 15:03 LRN (Rec: 10/01/21 16:59 LRN [id number]) Cervical Spine Range of Motion Cervical Spine Active Degrees Testing Position Sitting Flexion 55 Extension 60 Rotation Left 80 Rotation Right 80 Lateral Flexion Left 38 Lateral Flexion Right 32 ROM Limitations Muscle Weakness Shoulder Goniometric Range of Motion Shoulder Right Active Shoulder ROM WFL Yes Testing Position Sitting Flexion 180 Abduction 180 External Rotation at 0 degrees Abduction 70 Left Active Shoulder ROM WFL Yes Testing Position Sitting Flexion 180 Extension 180 External Rotation at 0 degrees Abduction 70 Elbow/Forearm Range of Motion Elbow/Forearm Right Active Elbow/Forearm ROM WFL Yes ROM Testing Position Sitting Left Active Elbow/Forearm ROM WFL Yes ROM Testing Position Sitting PT-OP-L Special Tests Start: 09/27/21 18:38 Freq: Status: Active Protocol: Document 10/01/21 15:03 LRN (Rec: 10/01/21 16:59 LRN [id number]) Special Tests Cervical Spine Special Tests Upper Limb Tension Test Test Results Positive ulnar n bilaterally and medial n. L UE, neg radial n.test Comments Stretch felt. Vertebral Artery Test Results Negative bilaterally Traction Test Results Onset feeling of warmth f/b tingling in R arm Comments Inconclusive results Foraminal Compression Test Results Negative bilaterally Spurling's Test Test Results Negative bilaterally PT-OP-M Strength Start: 09/27/21 18:38 Freq: Status: Active Protocol: Document 10/01/21 15:03 LRN (Rec: 10/01/21 16:59 LRN [id number]) Cervical Spine Strength Cervical Spine Manual Muscle Testing Testing Position Sitting Comments Generally 5/5 Shoulder Strength Shoulder Manual Muscle Testing Right Flexion 5 Normal Extension 5 Normal Abduction (C5) 5 Normal Adduction 5 Normal External Rotation 5 Normal Internal Rotation 5 Normal Left Flexion 5 Normal Extension 5 Normal Abduction (C5) 5 Normal Adduction 4 Good External Rotation 5 Normal Internal Rotation 5 Normal Comments Pain in medial border of scapula with MMT of shoulder flex & IR Elbow/Forearm Strength Elbow and Forearm Manual Muscle Testing Right Flexion (C6) 5 Normal Extension (C7) 5 Normal Left Flexion (C6) 5 Normal Extension (C7) 4 Good PT-OP-Q Treatments Start: 09/27/21 18:38 Freq: Status: Active Protocol: Document 10/18/21 10:19 LRN (Rec: 10/18/21 16:24 LRN [id number]) Therapeutic Exercises Supine Exercises Horiz arm lifts Supine Exercise Name Roddy Horiz AB/AD Side bilateral Equipment Used 0# Reps/Minutes 9x Comments L neck/shldr blade pain Alternate arm lifts Supine Exercise Name Alternate arm lifts to 90 deg' s Side bilateral Equipment Used 3# Reps/Minutes 10x 2 Chest press Supine Exercise Name Chest press w/extra shove and return Side bilateral Equipment Used 3# Reps/Minutes 10x 5 Comments 3 sets with MWM. Deep Cervical Neck Flexors Supine Exercise Name Head to direction of distraction Reps/Minutes 5 Hold x 3 Comments Extra time taken to determine max tolerance of mvmt to avoid tingling hands Standing Exercises Shoulder rolls Standing Exercise Name Fwd/Bkwd shoulder rolls Side bilateral Reps/Minutes 10x Comments DC'd bkwd rolls due to onset of numbness tingling in hands. Manual Therapy Treatment Soft Tissue Mobilization Paraspinals Body Location C6, C7, T1 C/S parapinals R>L Mobilization Type Strumming,Sustained Pressure Intensity/Depth Moderate Body Position Supine Joint Mobilizations C7, T1 Joint C6-C7, C7-T1 Direction PA Grade II Body Position Supine Reps/Duration 3' Manual Traction Cervical Details Axial traction, various times of the day. Body Position Supine Reps/Duration 9' Manual Techniques MWM: C7,T1 R rot with chest press Type WMW: C7,T1 R rot w/chest press Body Location C7, T1 Body Position Supine Reps/Duration 10' Self-Care/Home Management Treatment Education Patient Education Home Exercise Program Activities Self-Care/Home Management Activities Issued & reviewed HEP: Neck AROM stretch for Rot, SB, neck elongation and wall standing posture. PT-OP-T Assessment and Plan Start: 09/27/21 18:38 Freq: Status: Active Protocol: Document 10/18/21 10:19 LRN (Rec: 10/18/21 16:24 LRN [id number]) Physical Therapy Assessment Goals Three Impairment Decreased L UE function ( QUICKdash score 68). Impairment Quickdash: 60-79% impaired ( score 60-70). Short Term Goal (STG) Pt will be able to report improved use of her L dominant hand with more accuracy with brushing of teeth. (10/18/21: Using L arm to brush teeth and back to [facility] 1/2 the time). (10/18/21: Lifting light load without thinking). STG Duration 11/15/21 (10/18/21: MET GOAL Senior Care Goal (LTG) Pt will be able to type on computer with accuracy of prior function. (10/18/21: Can type 10 minutes before the hands go numb). LTG Duration 12/30/21 (10/18/21: Improving ) Two Impairment Decreased ability to sleep at night due to L shoulder pain. Short Term Goal (STG) Pt will be educated in proper nighttime posturing for sleep to minimize L shoulder pain. STG Duration 10/11/21 (10/12/21: MET GOAL) Senior Care Goal (LTG) Pt will be able to improve ability to sleep at night to 6 -7 hrs. LTG Duration 12/30/21 (10/18/21: MET GOAL) One Impairment Pt lacks appropriates self care HEP. Short Term Goal (STG) Pt will be educated in proper head/neck posturing. STG Duration 10/18/21 (10/12/21: MET GOAL) Job Boss Goal (LTG) Pt will be independent in a self care HEP shoulder & elbow strengthening and ex's to assist in proper posturing. (10/15/21: I/S in fwd shoulder rolls to relieve tension in Rhomboids). LTG Duration 12/30/21 Progress Towards Goals Progress Comments Able to type on computer 10 minutes. Sleeping at prior level of function. Improved use of L arm (brushes teeth with L). Assessment Summary Assessment Mechanical/soft tissue dysfunction ~C7 initially resulting in roddy hand pain, today only L hand pain intermittently. She has L posterior scapular pain that is relieved when lying supine. Pt pain relieved with mild manual cervical traction. Pt gets increased pain with neck elongation > 50%. Pt tends to be too agressive with exercises. Not able to relieve pain with MWM during UE alternate arm lifts and horiz AB/AD. Able to relieve pain with chest press. Physical Therapy Plan Frequency and Duration Frequency of Treatment 2x/Week Plan of Care Start Date 10/01/21 Plan of Care End Date 12/30/21 Next Visit Focus/Plan Next Note Type Treatment Note Next Visit Plan STM of cervical/thoracic paraspinals (R>L) as needed for pain relief. JMT: C7 & upper Thoracic spine flexion. Exer: C/S stabilization, C. AROM, Try starting L tricep & shoulder AD strengthening with C/S stab. Add Stretch: mid thoracic rotation & flexion. End MH/IFES [L scapula] or [C7 /T1] if needed.
--- NOTE | 2021-10-18 16:28 | PT-OP ANOTE ---
Pt is being transferred to Vanessa Puckett DPT due to scheduling conflict of pt needing later afternoon appointments.
--- NOTE | 2021-10-21 16:46 | PT.OTN ---
Current Diagnoses Pain in left shoulder (10/21/21) Radiculopathy, site unspecified (10/21/21) Cervicalgia (10/21/21) Muscle weakness (generalized) (10/21/21) Other muscle spasm (10/21/21) Physical Therapy Treatment Note PT-OP-A Visit Information Start: 09/27/21 18:38 Freq: Status: Active Protocol: Document 10/21/21 15:21 LRN (Rec: 10/21/21 16:20 LRN [id number]) Out-Patient Physical Therapy Visit Information Visit Information Visit Type Treatment Note Visit Note Visit Start Time 15:22 Visit Stop Time 16:06 Total Visit Minutes 44 Visit Number 5 Evaluation Information Evaluation Date 10/01/21 Precautions Precautions TAPE ALLERGIES. PT-OP-B Current Condition Start: 09/27/21 18:38 Freq: Status: Active Protocol: Document 10/01/21 15:03 LRN (Rec: 10/01/21 16:59 LRN [id number]) Current Condition History of Current Condition Onset Date Jul 28, 2021 Current Complaints Severe pain down the L arm and weakness, numbness in hands. History of Current Condition L shoulder and neck pain. Covid in June. Was constantly fatigued, got booster and within 48 hours could hardly move the L shoulder. In August, started to get tingling and numbness in the lateral hands (little fingers on lateral sides and tips of 4th & 5th fingers) and was told it was inflammation in the neck and has radiated into the shoulders. States she has sheets of white pain down the entire L arm, like she hit her funny bone. The more active she is, the more pain she has. Sleeping is very difficult because she is a side sleeper and [facility] has had to adjust her sleeping to being on her back. She also has heart arrhythmia onset due to COVID. MH and placing her arm overhead helps decrease the pain. Prior Treatments and Tests Gabapentin to help sleep at night. Future Testing and Treatments Planned Massage therapy & accupuncture appointments. Treatment Goals Patient/Caregiver Goals Pt goal with therapy is to improve ability to sleep, and be able to use L dominant hand correctly, and be able to type on computer. Prior Functional Status Baseline Function- ADL's Independent Baseline Function- Mobility Independent Baseline Function- Work/School Independent Baseline Function- Other Able to sleep on 6-7 hrs at night on sides. Able to get up/down from floor without difficulty Current Functional Impairments (Reported) Functional Limitations- ADL's Not able to sleep on sides due to L shoulder pain. Not able to get up/down from floor. 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 Functional Limitations- Recreation/ Can't do sewing due to pain Hobbies and low stamina. Personal Factors Other Personal Factors That May Effect Hx of chronic headaches. 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 L handed dominant. PT-OP-C Subjective Start: 09/27/21 18:38 Freq: Status: Active Protocol: Document 10/21/21 15:21 LRN (Rec: 10/21/21 16:20 LRN [id number]) OP-PT Subjective Patient Comments Patient Comments Not as much numbness, very little tingling unless bending down to tie shoes. Hurting in back at the shoulder blade band across, and couldn't get comfortable to sleep. Getting more comfortable riding in the car. Mon, Tues not didn't sleep well, Wed was able to sleep. Still taking Gabapentin. PT-OP-E Functional Tests Start: 09/27/21 18:38 Freq: Status: Active Protocol: Document 10/01/21 15:03 LRN (Rec: 10/01/21 16:59 LRN [id number]) Functional Tests Apley's Scratch Test Action 1- Left Below superior spine of scapula Action 1- Right Below superior spine of scapula Action 2- Left T3 Action 2- Right T3 Action 3- Left T8 Action 3- Right T8 PT-OP-H Neuro Start: 09/27/21 18:38 Freq: Status: Active Protocol: Document 10/01/21 15:03 LRN (Rec: 10/01/21 16:59 LRN [id number]) Sensation Evaluation Gross Sensation Gross Sensation Left UE Impaired,Right UE Impaired Sensation Description Tingling,Pins & [place] Dermatome Impairments C8 Deep Tendon Reflex & Clonus Assessment Deep Tendon Reflex Bilateral Tricep Deep Tendon Reflex 1+ Diminished Bilateral Brachioradialis Deep Tendon Reflex 2+ Normal Roddy Biceps Deep Tendon Reflex 3+ Normal But Brisk PT-OP-J Posture/Palpation/Skin Start: 09/27/21 18:38 Freq: Status: Active Protocol: Document 10/01/21 15:03 LRN (Rec: 10/01/21 16:59 LRN [id number]) Posture Evaluation Position Standing Head/C-Spine Posture Forward Head T-Spine Posture Flattened L-Spine Posture Increased Lordosis Shoulder Posture (L) Forward Arm Posture (L) Internally Rotated,(R) Internally Rotated Pelvis Posture (L) Iliac Crest Superior Knee Posture (L) Genu Valgus,(R) Genu Valgus Palpation Assessment Location R Scapula Palpation Location Scapular positioning Palpation Details Protracted L Scapula Palpation Location Medial border Palpation Findings Muscle Guarding,Tenderness Posterior Neck Palpation Location C7-T2, L UT Palpation Findings Soft Tissue Tightness, Tenderness PT-OP-K Range of Motion Start: 09/27/21 18:38 Freq: Status: Active Protocol: Document 10/01/21 15:03 LRN (Rec: 10/01/21 16:59 LRN [id number]) Cervical Spine Range of Motion Cervical Spine Active Degrees Testing Position Sitting Flexion 55 Extension 60 Rotation Left 80 Rotation Right 80 Lateral Flexion Left 38 Lateral Flexion Right 32 ROM Limitations Muscle Weakness Shoulder Goniometric Range of Motion Shoulder Right Active Shoulder ROM WFL Yes Testing Position Sitting Flexion 180 Abduction 180 External Rotation at 0 degrees Abduction 70 Left Active Shoulder ROM WFL Yes Testing Position Sitting Flexion 180 Extension 180 External Rotation at 0 degrees Abduction 70 Elbow/Forearm Range of Motion Elbow/Forearm Right Active Elbow/Forearm ROM WFL Yes ROM Testing Position Sitting Left Active Elbow/Forearm ROM WFL Yes ROM Testing Position Sitting PT-OP-L Special Tests Start: 09/27/21 18:38 Freq: Status: Active Protocol: Document 10/01/21 15:03 LRN (Rec: 10/01/21 16:59 LRN [id number]) Special Tests Cervical Spine Special Tests Upper Limb Tension Test Test Results Positive ulnar n bilaterally and medial n. L UE, neg radial n.test Comments Stretch felt. Vertebral Artery Test Results Negative bilaterally Traction Test Results Onset feeling of warmth f/b tingling in R arm Comments Inconclusive results Foraminal Compression Test Results Negative bilaterally Spurling's Test Test Results Negative bilaterally PT-OP-M Strength Start: 09/27/21 18:38 Freq: Status: Active Protocol: Document 10/01/21 15:03 LRN (Rec: 10/01/21 16:59 LRN [id number]) Cervical Spine Strength Cervical Spine Manual Muscle Testing Testing Position Sitting Comments Generally 5/5 Shoulder Strength Shoulder Manual Muscle Testing Right Flexion 5 Normal Extension 5 Normal Abduction (C5) 5 Normal Adduction 5 Normal External Rotation 5 Normal Internal Rotation 5 Normal Left Flexion 5 Normal Extension 5 Normal Abduction (C5) 5 Normal Adduction 4 Good External Rotation 5 Normal Internal Rotation 5 Normal Comments Pain in medial border of scapula with MMT of shoulder flex & IR Elbow/Forearm Strength Elbow and Forearm Manual Muscle Testing Right Flexion (C6) 5 Normal Extension (C7) 5 Normal Left Flexion (C6) 5 Normal Extension (C7) 4 Good PT-OP-Q Treatments Start: 09/27/21 18:38 Freq: Status: Active Protocol: Document 10/21/21 15:21 LRN (Rec: 10/21/21 16:20 LRN [id number]) Therapeutic Exercises Supine Exercises Roddy arm lifts Supine Exercise Name Bautista max flexion Side bilateral Reps/Minutes 3 H x 20 Horiz arm lifts Supine Exercise Name Horiz AD with extra punch Side bilateral Equipment Used 0#, 1# Reps/Minutes 10x each Comments No pain Chest press Supine Exercise Name Chest press w/extra shove and return Side bilateral Equipment Used 0#, 1# Reps/Minutes 10x each Deep Cervical Neck Flexors Supine Exercise Name Head to direction of distraction Reps/Minutes 5 Hold x 10 Comments Extra time taken to determine max tolerance of mvmt to avoid tingling hands Sitting Exercises FB T/S flex stretch Sitting Exercise Name MWM: PA of T1, T2 with trunk flex (arms btn legs) Reps/Minutes 3-5 sec stretch x 10, 2 sets Manual Therapy Treatment Soft Tissue Mobilization Paraspinals Body Location C6, C7, T1 C/S parapinals R>L Mobilization Type Strumming,Sustained Pressure Intensity/Depth Moderate Body Position Supine Joint Mobilizations C7, T1 Joint C6-C7, C7-T1 Direction PA Grade II Body Position Prone Reps/Duration 3' Self-Care/Home Management Treatment Education Patient Education Home Exercise Program Activities Self-Care/Home Management Activities I/S pt in home ex of passive Rhomboid stretching by tucking chin and forward bending to tolerance. PT-OP-T Assessment and Plan Start: 09/27/21 18:38 Freq: Status: Active Protocol: Document 10/21/21 15:21 LRN (Rec: 10/21/21 16:20 LRN [id number]) Physical Therapy Assessment Goals Three Impairment Decreased L UE function ( QUICKdash score 68). Impairment Quickdash: 60-79% impaired ( score 60-70). Short Term Goal (STG) Pt will be able to report improved use of her L dominant hand with more accuracy with brushing of teeth. (10/18/21: Using L arm to brush teeth and back to [facility] 1/2 the time). (10/18/21: Lifting light load without thinking). STG Duration 11/15/21 (10/18/21: MET GOAL Long-Term Goal (LTG) Pt will be able to type on computer with accuracy of prior function. (10/18/21: Can type 10 minutes before the hands go numb). LTG Duration 12/30/21 (10/18/21: Improving ) Two Impairment Decreased ability to sleep at night due to L shoulder pain. Short Term Goal (STG) Pt will be educated in proper nighttime posturing for sleep to minimize L shoulder pain. STG Duration 10/11/21 (10/12/21: MET GOAL) Associate Professor Of Library Science Goal (LTG) Pt will be able to improve ability to sleep at night to 6 -7 hrs. LTG Duration 12/30/21 (10/18/21: MET GOAL) One Impairment Pt lacks appropriates self care HEP. Short Term Goal (STG) Pt will be educated in proper head/neck posturing. STG Duration 10/18/21 (10/12/21: MET GOAL) Long-Term Goal (LTG) Pt will be independent in a self care HEP shoulder & elbow strengthening and ex's to assist in proper posturing. (10/15/21: I/S in fwd shoulder rolls to relieve tension in Rhomboids). (10/21/21: I/S pt in passive Rhomboid stretching by tucking chin and forward bending to tolerance). LTG Duration 12/30/21 (10/21/21: Progressed) Progress Towards Goals Progress Comments Progressed self care program. Pt able to use work computer keyboard at home with minimal symptoms (arms/hands turning cold), but not able to type on keyboard at home. Pt able to do ex's in supine without onset of neuro symptoms. Assessment Summary Assessment + response to PA glide of T1, T2 with trunk flex stretch to T/S, able to eliminate tingling in hands. Good tolerance to supine neck stab ex w/o complaints of pain or change in hands sensation. Physical Therapy Plan Frequency and Duration Frequency of Treatment 2x/Week Plan of Care Start Date 10/01/21 Plan of Care End Date 12/30/21 Next Visit Focus/Plan Next Note Type Treatment Note Next Visit Plan STM of cervical/thoracic paraspinals (R>L) as needed for pain relief. Exer: C/S stabilization, C. AROM, Progress L tricep & shoulder AD strengthening with C/S stab. Issue HEP: shoulder & elbow strengthening and ex's to assist in proper posturing. JMT: C7 & upper Thoracic spine flexion as needed. Add Stretch: mid thoracic rotation & flexion. End MH/IFES [L scapula] or [C7 /T1] if needed.
--- NOTE | 2021-10-26 17:02 | PT.OTN ---
Current Diagnoses Pain in left shoulder (10/26/21) Radiculopathy, site unspecified (10/26/21) Cervicalgia (10/26/21) Muscle weakness (generalized) (10/26/21) Other muscle spasm (10/26/21) Physical Therapy Treatment Note PT-OP-A Visit Information Start: 09/27/21 18:38 Freq: Status: Active Protocol: Document 10/26/21 14:05 AW (Rec: 10/26/21 17:02 AW [id number]) Out-Patient Physical Therapy Visit Information Visit Information Visit Type Treatment Note Visit Note Visit Start Time 16:00 Visit Stop Time 16:45 Total Visit Minutes 45 Visit Number 6 Evaluation Information Evaluation Date 10/01/21 Precautions Precautions TAPE ALLERGIES. PT-OP-B Current Condition Start: 09/27/21 18:38 Freq: Status: Active Protocol: Document 10/01/21 15:03 LRN (Rec: 10/01/21 16:59 LRN [id number]) Current Condition History of Current Condition Onset Date Jul 28, 2021 Current Complaints Severe pain down the L arm and weakness, numbness in hands. History of Current Condition L shoulder and neck pain. Covid in June. Was constantly fatigued, got booster and within 48 hours could hardly move the L shoulder. In August, started to get tingling and numbness in the lateral hands (little fingers on lateral sides and tips of 4th & 5th fingers) and was told it was inflammation in the neck and has radiated into the shoulders. States she has sheets of white pain down the entire L arm, like she hit her funny bone. The more active she is, the more pain she has. Sleeping is very difficult because she is a side sleeper and se has had to adjust her sleeping to being on her back. She also has heart arrhythmia onset due to COVID. MH and placing her arm overhead helps decrease the pain. Prior Treatments and Tests Gabapentin to help sleep at night. Future Testing and Treatments Planned Massage therapy & accupuncture appointments. Treatment Goals Patient/Caregiver Goals Pt goal with therapy is to improve ability to sleep, and be able to use L dominant hand correctly, and be able to type on computer. Prior Functional Status Baseline Function- ADL's Independent Baseline Function- Mobility Independent Baseline Function- Work/School Independent Baseline Function- Other Able to sleep on 6-7 hrs at night on sides. Able to get up/down from floor without difficulty Current Functional Impairments (Reported) Functional Limitations- ADL's Not able to sleep on sides due to L shoulder pain. Not able to get up/down from floor. 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 Functional Limitations- Recreation/ Can't do sewing due to pain Hobbies and low stamina. Personal Factors Other Personal Factors That May Effect Hx of chronic headaches. 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 L handed dominant. PT-OP-C Subjective Start: 09/27/21 18:38 Freq: Status: Active Protocol: Document 10/26/21 14:05 AW (Rec: 10/26/21 17:02 AW [id number]) OP-PT Subjective Patient Comments Patient Comments Was doing ok but then worked on cleaning up boat for sale on Monday. She feels she overdid it using her left arm and then was in pain again Monday night. PT-OP-E Functional Tests Start: 09/27/21 18:38 Freq: Status: Active Protocol: Document 10/01/21 15:03 LRN (Rec: 10/01/21 16:59 LRN [id number]) Functional Tests Apley's Scratch Test Action 1- Left Below superior spine of scapula Action 1- Right Below superior spine of scapula Action 2- Left T3 Action 2- Right T3 Action 3- Left T8 Action 3- Right T8 PT-OP-H Neuro Start: 09/27/21 18:38 Freq: Status: Active Protocol: Document 10/01/21 15:03 LRN (Rec: 10/01/21 16:59 LRN [id number]) Sensation Evaluation Gross Sensation Gross Sensation Left UE Impaired,Right UE Impaired Sensation Description Tingling,Pins & Jbphh Dermatome Impairments C8 Deep Tendon Reflex & Clonus Assessment Deep Tendon Reflex Bilateral Tricep Deep Tendon Reflex 1+ Diminished Bilateral Brachioradialis Deep Tendon Reflex 2+ Normal Roddy Biceps Deep Tendon Reflex 3+ Normal But Brisk PT-OP-J Posture/Palpation/Skin Start: 09/27/21 18:38 Freq: Status: Active Protocol: Document 10/01/21 15:03 LRN (Rec: 10/01/21 16:59 LRN [id number]) Posture Evaluation Position Standing Head/C-Spine Posture Forward Head T-Spine Posture Flattened L-Spine Posture Increased Lordosis Shoulder Posture (L) Forward Arm Posture (L) Internally Rotated,(R) Internally Rotated Pelvis Posture (L) Iliac Crest Superior Knee Posture (L) Genu Valgus,(R) Genu Valgus Palpation Assessment Location R Scapula Palpation Location Scapular positioning Palpation Details Protracted L Scapula Palpation Location Medial border Palpation Findings Muscle Guarding,Tenderness Posterior Neck Palpation Location C7-T2, L UT Palpation Findings Soft Tissue Tightness, Tenderness PT-OP-K Range of Motion Start: 09/27/21 18:38 Freq: Status: Active Protocol: Document 10/01/21 15:03 LRN (Rec: 10/01/21 16:59 LRN [id number]) Cervical Spine Range of Motion Cervical Spine Active Degrees Testing Position Sitting Flexion 55 Extension 60 Rotation Left 80 Rotation Right 80 Lateral Flexion Left 38 Lateral Flexion Right 32 ROM Limitations Muscle Weakness Shoulder Goniometric Range of Motion Shoulder Right Active Shoulder ROM WFL Yes Testing Position Sitting Flexion 180 Abduction 180 External Rotation at 0 degrees Abduction 70 Left Active Shoulder ROM WFL Yes Testing Position Sitting Flexion 180 Extension 180 External Rotation at 0 degrees Abduction 70 Elbow/Forearm Range of Motion Elbow/Forearm Right Active Elbow/Forearm ROM WFL Yes ROM Testing Position Sitting Left Active Elbow/Forearm ROM WFL Yes ROM Testing Position Sitting PT-OP-L Special Tests Start: 09/27/21 18:38 Freq: Status: Active Protocol: Document 10/01/21 15:03 LRN (Rec: 10/01/21 16:59 LRN [id number]) Special Tests Cervical Spine Special Tests Upper Limb Tension Test Test Results Positive ulnar n bilaterally and medial n. L UE, neg radial n.test Comments Stretch felt. Vertebral Artery Test Results Negative bilaterally Traction Test Results Onset feeling of warmth f/b tingling in R arm Comments Inconclusive results Foraminal Compression Test Results Negative bilaterally Spurling's Test Test Results Negative bilaterally PT-OP-M Strength Start: 09/27/21 18:38 Freq: Status: Active Protocol: Document 10/01/21 15:03 LRN (Rec: 10/01/21 16:59 LRN [id number]) Cervical Spine Strength Cervical Spine Manual Muscle Testing Testing Position Sitting Comments Generally 5/5 Shoulder Strength Shoulder Manual Muscle Testing Right Flexion 5 Normal Extension 5 Normal Abduction (C5) 5 Normal Adduction 5 Normal External Rotation 5 Normal Internal Rotation 5 Normal Left Flexion 5 Normal Extension 5 Normal Abduction (C5) 5 Normal Adduction 4 Good External Rotation 5 Normal Internal Rotation 5 Normal Comments Pain in medial border of scapula with MMT of shoulder flex & IR Elbow/Forearm Strength Elbow and Forearm Manual Muscle Testing Right Flexion (C6) 5 Normal Extension (C7) 5 Normal Left Flexion (C6) 5 Normal Extension (C7) 4 Good PT-OP-Q Treatments Start: 09/27/21 18:38 Freq: Status: Active Protocol: Document 10/26/21 14:05 AW (Rec: 10/26/21 17:02 AW [id number]) Therapeutic Exercises Supine Exercises posture press/low trap activation Supine Exercise Name posture press/low trap activation Horiz arm lifts Supine Exercise Name Horiz AD with extra punch Side bilateral Equipment Used 0#, 1# Reps/Minutes 10x each Comments No pain Chest press Supine Exercise Name Chest press w/extra shove and return Side bilateral Equipment Used 0#, 1# Reps/Minutes 10x each Deep Cervical Neck Flexors Supine Exercise Name Head to direction of distraction Reps/Minutes 5 Hold x 10 Comments Extra time taken to determine max tolerance of mvmt to avoid tingling hands Sitting Exercises wrist stretches Sitting Exercise Name phalen's and reverse - with ulnar and radial dev Side bilateral Comments cued symptom-free range FB T/S flex stretch Sitting Exercise Name MWM: PA of T1, T2 with trunk flex (arms btn legs) Reps/Minutes 3-5 sec stretch x 10, 2 sets Standing Exercises Shoulder rolls Standing Exercise Name Fwd/Bkwd shoulder rolls Side bilateral Reps/Minutes 10x Comments DC'd bkwd rolls due to onset of numbness tingling in hands. 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 She can complete her work with good ergonomic setup at work and does not need to use home workstation. Activities Self-Care/Home Management Activities Reviewed passive rhomboid stretch and instructed pt in exaggerating scap protraction. Added supine posture press to HEP. PT-OP-T Assessment and Plan Start: 09/27/21 18:38 Freq: Status: Active Protocol: Document 10/26/21 14:05 AW (Rec: 10/26/21 17:02 AW [id number]) Physical Therapy Assessment Goals Three Impairment Decreased L UE function ( QUICKdash score 68). Impairment Quickdash: 60-79% impaired ( score 60-70). Short Term Goal (STG) Pt will be able to report improved use of her L dominant hand with more accuracy with brushing of teeth. (10/18/21: Using L arm to brush teeth and back to [facility] 1/2 the time). (10/18/21: Lifting light load without thinking). STG Duration 11/15/21 (10/18/21: MET GOAL Group Home Goal (LTG) Pt will be able to type on computer with accuracy of prior function. (10/18/21: Can type 10 minutes before the hands go numb). LTG Duration 12/30/21 (10/18/21: Improving ) Two Impairment Decreased ability to sleep at night due to L shoulder pain. Short Term Goal (STG) Pt will be educated in proper nighttime posturing for sleep to minimize L shoulder pain. STG Duration 10/11/21 (10/12/21: MET GOAL) Group Home Goal (LTG) Pt will be able to improve ability to sleep at night to 6 -7 hrs. LTG Duration 12/30/21 (10/18/21: MET GOAL) One Impairment Pt lacks appropriates self care HEP. Short Term Goal (STG) Pt will be educated in proper head/neck posturing. STG Duration 10/18/21 (10/12/21: MET GOAL) Group Home Goal (LTG) Pt will be independent in a self care HEP shoulder & elbow strengthening and ex's to assist in proper posturing. (10/15/21: I/S in fwd shoulder rolls to relieve tension in Rhomboids). (10/21/21: I/S pt in passive Rhomboid stretching by tucking chin and forward bending to tolerance). LTG Duration 12/30/21 (10/21/21: Progressed) Assessment Summary Assessment Good response to PA glide T1, T2 with trunk flexion and exaggerated scapular protraction, eliminating tingling in hands. Introduced supine posture press for HEP. Pt has good understanding of degree of cervical flexion required to relieve arm/hand symptoms. Physical Therapy Plan Frequency and Duration Frequency of Treatment 2x/Week Plan of Care Start Date 10/01/21 Plan of Care End Date 12/30/21 Therapeutic Interventions Therapeutic Interventions Home Exercise Program,Joint Mobilizations,Manual Therapy, Patient/Caregiver Education, Self-Care/Home Management,Soft Tissue Mobilization, Therapeutic Exercises Modalities Cold Pack/Ice Massage,Electric Stimulation,Hot Packs, Ultrasound Next Visit Focus/Plan Next Note Type Treatment Note Next Visit Plan STM of cervical/thoracic paraspinals (R>L) as needed for pain relief. Exer: C/S stabilization, C. AROM, Progress L tricep & shoulder AD strengthening with C/S stab. Issue HEP: shoulder & elbow strengthening and ex's to assist in proper posturing. JMT: C7 & upper Thoracic spine flexion as needed. Add Stretch: mid thoracic rotation & flexion. End MH/IFES [L scapula] or [C7 /T1] if needed.
--- NOTE | 2021-10-28 16:56 | PT.OTN ---
Current Diagnoses Pain in left shoulder (10/28/21) Radiculopathy, site unspecified (10/28/21) Cervicalgia (10/28/21) Muscle weakness (generalized) (10/28/21) Other muscle spasm (10/28/21) Physical Therapy Treatment Note PT-OP-A Visit Information Start: 09/27/21 18:38 Freq: Status: Active Protocol: Document 10/28/21 16:01 AW (Rec: 10/28/21 16:56 AW [id number]) Out-Patient Physical Therapy Visit Information Visit Information Visit Type Treatment Note Visit Note Visit Start Time 16:00 Visit Stop Time 16:45 Total Visit Minutes 45 Visit Number 7 Number of MACHINE TESTER Visits 0 Evaluation Information Evaluation Date 10/01/21 Precautions Precautions TAPE ALLERGIES. PT-OP-B Current Condition Start: 09/27/21 18:38 Freq: Status: Active Protocol: Document 10/01/21 15:03 LRN (Rec: 10/01/21 16:59 LRN [id number]) Current Condition History of Current Condition Onset Date Jul 28, 2021 Current Complaints Severe pain down the L arm and weakness, numbness in hands. History of Current Condition L shoulder and neck pain. Covid in June. Was constantly fatigued, got booster and within 48 hours could hardly move the L shoulder. In August, started to get tingling and numbness in the lateral hands (little fingers on lateral sides and tips of 4th & 5th fingers) and was told it was inflammation in the neck and has radiated into the shoulders. States she has sheets of white pain down the entire L arm, like she hit her funny bone. The more active she is, the more pain she has. Sleeping is very difficult because she is a side sleeper and [facility] has had to adjust her sleeping to being on her back. She also has heart arrhythmia onset due to COVID. MH and placing her arm overhead helps decrease the pain. Prior Treatments and Tests Gabapentin to help sleep at night. Future Testing and Treatments Planned Massage therapy & accupuncture appointments. Treatment Goals Patient/Caregiver Goals Pt goal with therapy is to improve ability to sleep, and be able to use L dominant hand correctly, and be able to type on computer. Prior Functional Status Baseline Function- ADL's Independent Baseline Function- Mobility Independent Baseline Function- Work/School Independent Baseline Function- Other Able to sleep on 6-7 hrs at night on sides. Able to get up/down from floor without difficulty Current Functional Impairments (Reported) Functional Limitations- ADL's Not able to sleep on sides due to L shoulder pain. Not able to get up/down from floor. 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 Functional Limitations- Recreation/ Can't do sewing due to pain Hobbies and low stamina. Personal Factors Other Personal Factors That May Effect Hx of chronic headaches. 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 L handed dominant. PT-OP-C Subjective Start: 09/27/21 18:38 Freq: Status: Active Protocol: Document 10/28/21 16:01 AW (Rec: 10/28/21 16:56 AW [id number]) OP-PT Subjective Patient Comments Patient Comments Pt feels sore today but has less tingling. Feels more like a band of heat across mid back and creeping from inside toward the skin. PT-OP-E Functional Tests Start: 09/27/21 18:38 Freq: Status: Active Protocol: Document 10/01/21 15:03 LRN (Rec: 10/01/21 16:59 LRN [id number]) Functional Tests Apley's Scratch Test Action 1- Left Below superior spine of scapula Action 1- Right Below superior spine of scapula Action 2- Left T3 Action 2- Right T3 Action 3- Left T8 Action 3- Right T8 PT-OP-H Neuro Start: 09/27/21 18:38 Freq: Status: Active Protocol: Document 10/01/21 15:03 LRN (Rec: 10/01/21 16:59 LRN [id number]) Sensation Evaluation Gross Sensation Gross Sensation Left UE Impaired,Right UE Impaired Sensation Description Tingling,Pins & [place] Dermatome Impairments C8 Deep Tendon Reflex & Clonus Assessment Deep Tendon Reflex Bilateral Tricep Deep Tendon Reflex 1+ Diminished Bilateral Brachioradialis Deep Tendon Reflex 2+ Normal Roddy Biceps Deep Tendon Reflex 3+ Normal But Brisk PT-OP-J Posture/Palpation/Skin Start: 09/27/21 18:38 Freq: Status: Active Protocol: Document 10/01/21 15:03 LRN (Rec: 10/01/21 16:59 LRN [id number]) Posture Evaluation Position Standing Head/C-Spine Posture Forward Head T-Spine Posture Flattened L-Spine Posture Increased Lordosis Shoulder Posture (L) Forward Arm Posture (L) Internally Rotated,(R) Internally Rotated Pelvis Posture (L) Iliac Crest Superior Knee Posture (L) Genu Valgus,(R) Genu Valgus Palpation Assessment Location R Scapula Palpation Location Scapular positioning Palpation Details Protracted L Scapula Palpation Location Medial border Palpation Findings Muscle Guarding,Tenderness Posterior Neck Palpation Location C7-T2, L UT Palpation Findings Soft Tissue Tightness, Tenderness PT-OP-K Range of Motion Start: 09/27/21 18:38 Freq: Status: Active Protocol: Document 10/01/21 15:03 LRN (Rec: 10/01/21 16:59 LRN [id number]) Cervical Spine Range of Motion Cervical Spine Active Degrees Testing Position Sitting Flexion 55 Extension 60 Rotation Left 80 Rotation Right 80 Lateral Flexion Left 38 Lateral Flexion Right 32 ROM Limitations Muscle Weakness Shoulder Goniometric Range of Motion Shoulder Right Active Shoulder ROM WFL Yes Testing Position Sitting Flexion 180 Abduction 180 External Rotation at 0 degrees Abduction 70 Left Active Shoulder ROM WFL Yes Testing Position Sitting Flexion 180 Extension 180 External Rotation at 0 degrees Abduction 70 Elbow/Forearm Range of Motion Elbow/Forearm Right Active Elbow/Forearm ROM WFL Yes ROM Testing Position Sitting Left Active Elbow/Forearm ROM WFL Yes ROM Testing Position Sitting PT-OP-L Special Tests Start: 09/27/21 18:38 Freq: Status: Active Protocol: Document 10/01/21 15:03 LRN (Rec: 10/01/21 16:59 LRN [id number]) Special Tests Cervical Spine Special Tests Upper Limb Tension Test Test Results Positive ulnar n bilaterally and medial n. L UE, neg radial n.test Comments Stretch felt. Vertebral Artery Test Results Negative bilaterally Traction Test Results Onset feeling of warmth f/b tingling in R arm Comments Inconclusive results Foraminal Compression Test Results Negative bilaterally Spurling's Test Test Results Negative bilaterally PT-OP-M Strength Start: 09/27/21 18:38 Freq: Status: Active Protocol: Document 10/01/21 15:03 LRN (Rec: 10/01/21 16:59 LRN [id number]) Cervical Spine Strength Cervical Spine Manual Muscle Testing Testing Position Sitting Comments Generally 5/5 Shoulder Strength Shoulder Manual Muscle Testing Right Flexion 5 Normal Extension 5 Normal Abduction (C5) 5 Normal Adduction 5 Normal External Rotation 5 Normal Internal Rotation 5 Normal Left Flexion 5 Normal Extension 5 Normal Abduction (C5) 5 Normal Adduction 4 Good External Rotation 5 Normal Internal Rotation 5 Normal Comments Pain in medial border of scapula with MMT of shoulder flex & IR Elbow/Forearm Strength Elbow and Forearm Manual Muscle Testing Right Flexion (C6) 5 Normal Extension (C7) 5 Normal Left Flexion (C6) 5 Normal Extension (C7) 4 Good PT-OP-Q Treatments Start: 09/27/21 18:38 Freq: Status: Active Protocol: Document 10/28/21 16:01 AW (Rec: 10/28/21 16:56 AW [id number]) Therapeutic Exercises Supine Exercises Deep Cervical Neck Flexors Supine Exercise Name Head to direction of distraction Reps/Minutes 5 Hold x 10 Comments Pt self-directs degree Sitting Exercises wrist stretches Sitting Exercise Name phalen's and reverse - with ulnar and radial dev Side bilateral Comments cued symptom-free range FB T/S flex stretch Sitting Exercise Name MWM: PA of T1, T2 with trunk flex (arms btn legs) Reps/Minutes 3-5 sec stretch x 10, 2 sets Manual Therapy Treatment Soft Tissue Mobilization rhomboids Body Location rhomboids (l>r) Mobilization Type Strumming,Sustained Pressure Intensity/Depth Moderate Body Position Prone Joint Mobilizations scapulothoracic Joint scapulothoracic Direction inferior Grade III Body Position Prone Thoracic spine Joint Thoracic spine Direction rotation Grade II Body Position Sitting Reps/Duration 3' Comments MWM as pt performs hADD with LUE and PT provides right rotation glide T1-T3 C7, T1 Joint C6-C7, C7-T1 Direction PA Grade II Body Position Prone Reps/Duration 3' Self-Care/Home Management Treatment Education Patient Education Pain Management,Posture PT-OP-T Assessment and Plan Start: 09/27/21 18:38 Freq: Status: Active Protocol: Document 10/28/21 16:01 AW (Rec: 10/28/21 16:56 AW [id number]) Physical Therapy Assessment Goals Three Impairment Decreased L UE function ( QUICKdash score 68). Impairment Quickdash: 60-79% impaired ( score 60-70). Short Term Goal (STG) Pt will be able to report improved use of her L dominant hand with more accuracy with brushing of teeth. (10/18/21: Using L arm to brush teeth and back to [facility] 1/2 the time). (10/18/21: Lifting light load without thinking). STG Duration 11/15/21 (10/18/21: MET GOAL Correction Goal (LTG) Pt will be able to type on computer with accuracy of prior function. (10/18/21: Can type 10 minutes before the hands go numb). 10/28/21 - Typed an entire paper >30 minutes without numbness in hands. LTG Duration 12/30/21 (10/18/21: Improving ) Two Impairment Decreased ability to sleep at night due to L shoulder pain. Short Term Goal (STG) Pt will be educated in proper nighttime posturing for sleep to minimize L shoulder pain. STG Duration 10/11/21 (10/12/21: MET GOAL) Correction Goal (LTG) Pt will be able to improve ability to sleep at night to 6 -7 hrs. LTG Duration 12/30/21 (10/18/21: MET GOAL) One Impairment Pt lacks appropriates self care HEP. Short Term Goal (STG) Pt will be educated in proper head/neck posturing. STG Duration 10/18/21 (10/12/21: MET GOAL) [employer] Goal (LTG) Pt will be independent in a self care HEP shoulder & elbow strengthening and ex's to assist in proper posturing. (10/15/21: I/S in fwd shoulder rolls to relieve tension in Rhomboids). (10/21/21: I/S pt in passive Rhomboid stretching by tucking chin and forward bending to tolerance). LTG Duration 12/30/21 (10/21/21: Progressed) Progress Towards Goals Progress Comments Pt able to type an entire paper >30 minutes with no hand tingling. Assessment Summary Assessment Pt reports good progress with reduced numbness in hands. She complains more today of mid scapular pain that feels hot. She responded well to scapular mobs and does have significant restriction in inferior glide on the left side which improved with grade III mobs. Physical Therapy Plan Frequency and Duration Frequency of Treatment 2x/Week Plan of Care Start Date 10/01/21 Plan of Care End Date 12/30/21 Therapeutic Interventions Therapeutic Interventions Home Exercise Program,Joint Mobilizations,Manual Therapy, Patient/Caregiver Education, Self-Care/Home Management,Soft Tissue Mobilization, Therapeutic Exercises Modalities Cold Pack/Ice Massage,Electric Stimulation,Hot Packs, Ultrasound Next Visit Focus/Plan Next Note Type Treatment Note Next Visit Plan STM of cervical/thoracic paraspinals (R>L) as needed for pain relief. Exer: C/S stabilization, C. AROM, Progress L tricep & shoulder AD strengthening with C/S stab. Issue HEP: shoulder & elbow strengthening and ex's to assist in proper posturing. JMT: C7 & upper Thoracic spine flexion as needed. Add Stretch: mid thoracic rotation & flexion. End MH/IFES [L scapula] or [C7 /T1] if needed.
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
--- NOTE | 2021-11-11 16:59 | PT.OTN ---
Current Diagnoses Pain in left shoulder (11/11/21) Radiculopathy, site unspecified (11/11/21) Cervicalgia (11/11/21) Muscle weakness (generalized) (11/11/21) Other muscle spasm (11/11/21) Physical Therapy Treatment Note PT-OP-A Visit Information Start: 09/27/21 18:38 Freq: Status: Active Protocol: Document 11/11/21 15:58 AW (Rec: 11/11/21 16:59 AW [id number]) Out-Patient Physical Therapy Visit Information Visit Information Visit Type Treatment Note Visit Start Time 16:00 Visit Stop Time 16:45 Total Visit Minutes 45 Visit Number 10 Number of EYE TECHNICIAN Visits 0 Evaluation Information Evaluation Date 10/01/21 Precautions Precautions TAPE ALLERGIES. PT-OP-B Current Condition Start: 09/27/21 18:38 Freq: Status: Active Protocol: Document 10/01/21 15:03 LRN (Rec: 10/01/21 16:59 LRN [id number]) Current Condition History of Current Condition Onset Date Jul 28, 2021 Current Complaints Severe pain down the L arm and weakness, numbness in hands. History of Current Condition L shoulder and neck pain. Covid in June. Was constantly fatigued, got booster and within 48 hours could hardly move the L shoulder. In August, started to get tingling and numbness in the lateral hands (little fingers on lateral sides and tips of 4th & 5th fingers) and was told it was inflammation in the neck and has radiated into the shoulders. States she has sheets of white pain down the entire L arm, like she hit her funny bone. The more active she is, the more pain she has. Sleeping is very difficult because she is a side sleeper and se has had to adjust her sleeping to being on her back. She also has heart arrhythmia onset due to COVID. MH and placing her arm overhead helps decrease the pain. Prior Treatments and Tests Gabapentin to help sleep at night. Future Testing and Treatments Planned Massage therapy & accupuncture appointments. Treatment Goals Patient/Caregiver Goals Pt goal with therapy is to improve ability to sleep, and be able to use L dominant hand correctly, and be able to type on computer. Prior Functional Status Baseline Function- ADL's Independent Baseline Function- Mobility Independent Baseline Function- Work/School Independent Baseline Function- Other Able to sleep on 6-7 hrs at night on sides. Able to get up/down from floor without difficulty Current Functional Impairments (Reported) Functional Limitations- ADL's Not able to sleep on sides due to L shoulder pain. Not able to get up/down from floor. 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 Functional Limitations- Recreation/ Can't do sewing due to pain Hobbies and low stamina. Personal Factors Other Personal Factors That May Effect Hx of chronic headaches. 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 L handed dominant. PT-OP-C Subjective Start: 09/27/21 18:38 Freq: Status: Active Protocol: Document 11/11/21 15:58 AW (Rec: 11/11/21 16:59 AW [id number]) OP-PT Subjective Patient Comments Patient Comments Had nausea again after dry needling but feeling better today. Notices misalignment and is able to make subtle corrections throughout her day . PT-OP-E Functional Tests Start: 09/27/21 18:38 Freq: Status: Active Protocol: Document 10/01/21 15:03 LRN (Rec: 10/01/21 16:59 LRN [id number]) Functional Tests Apley's Scratch Test Action 1- Left Below superior spine of scapula Action 1- Right Below superior spine of scapula Action 2- Left T3 Action 2- Right T3 Action 3- Left T8 Action 3- Right T8 PT-OP-H Neuro Start: 09/27/21 18:38 Freq: Status: Active Protocol: Document 10/01/21 15:03 LRN (Rec: 10/01/21 16:59 LRN [id number]) Sensation Evaluation Gross Sensation Gross Sensation Left UE Impaired,Right UE Impaired Sensation Description Tingling,Pins & [place] Dermatome Impairments C8 Deep Tendon Reflex & Clonus Assessment Deep Tendon Reflex Bilateral Tricep Deep Tendon Reflex 1+ Diminished Bilateral Brachioradialis Deep Tendon Reflex 2+ Normal Roddy Biceps Deep Tendon Reflex 3+ Normal But Brisk PT-OP-J Posture/Palpation/Skin Start: 09/27/21 18:38 Freq: Status: Active Protocol: Document 10/01/21 15:03 LRN (Rec: 10/01/21 16:59 LRN [id number]) Posture Evaluation Position Standing Head/C-Spine Posture Forward Head T-Spine Posture Flattened L-Spine Posture Increased Lordosis Shoulder Posture (L) Forward Arm Posture (L) Internally Rotated,(R) Internally Rotated Pelvis Posture (L) Iliac Crest Superior Knee Posture (L) Genu Valgus,(R) Genu Valgus Palpation Assessment Location R Scapula Palpation Location Scapular positioning Palpation Details Protracted L Scapula Palpation Location Medial border Palpation Findings Muscle Guarding,Tenderness Posterior Neck Palpation Location C7-T2, L UT Palpation Findings Soft Tissue Tightness, Tenderness PT-OP-K Range of Motion Start: 09/27/21 18:38 Freq: Status: Active Protocol: Document 10/01/21 15:03 LRN (Rec: 10/01/21 16:59 LRN [id number]) Cervical Spine Range of Motion Cervical Spine Active Degrees Testing Position Sitting Flexion 55 Extension 60 Rotation Left 80 Rotation Right 80 Lateral Flexion Left 38 Lateral Flexion Right 32 ROM Limitations Muscle Weakness Shoulder Goniometric Range of Motion Shoulder Right Active Shoulder ROM WFL Yes Testing Position Sitting Flexion 180 Abduction 180 External Rotation at 0 degrees Abduction 70 Left Active Shoulder ROM WFL Yes Testing Position Sitting Flexion 180 Extension 180 External Rotation at 0 degrees Abduction 70 Elbow/Forearm Range of Motion Elbow/Forearm Right Active Elbow/Forearm ROM WFL Yes ROM Testing Position Sitting Left Active Elbow/Forearm ROM WFL Yes ROM Testing Position Sitting PT-OP-L Special Tests Start: 09/27/21 18:38 Freq: Status: Active Protocol: Document 10/01/21 15:03 LRN (Rec: 10/01/21 16:59 LRN [id number]) Special Tests Cervical Spine Special Tests Upper Limb Tension Test Test Results Positive ulnar n bilaterally and medial n. L UE, neg radial n.test Comments Stretch felt. Vertebral Artery Test Results Negative bilaterally Traction Test Results Onset feeling of warmth f/b tingling in R arm Comments Inconclusive results Foraminal Compression Test Results Negative bilaterally Spurling's Test Test Results Negative bilaterally PT-OP-M Strength Start: 09/27/21 18:38 Freq: Status: Active Protocol: Document 10/01/21 15:03 LRN (Rec: 10/01/21 16:59 LRN [id number]) Cervical Spine Strength Cervical Spine Manual Muscle Testing Testing Position Sitting Comments Generally 5/5 Shoulder Strength Shoulder Manual Muscle Testing Right Flexion 5 Normal Extension 5 Normal Abduction (C5) 5 Normal Adduction 5 Normal External Rotation 5 Normal Internal Rotation 5 Normal Left Flexion 5 Normal Extension 5 Normal Abduction (C5) 5 Normal Adduction 4 Good External Rotation 5 Normal Internal Rotation 5 Normal Comments Pain in medial border of scapula with MMT of shoulder flex & IR Elbow/Forearm Strength Elbow and Forearm Manual Muscle Testing Right Flexion (C6) 5 Normal Extension (C7) 5 Normal Left Flexion (C6) 5 Normal Extension (C7) 4 Good PT-OP-Q Treatments Start: 09/27/21 18:38 Freq: Status: Active Protocol: Document 11/11/21 15:58 AW (Rec: 11/11/21 16:59 AW [id number]) Cardio Equipment Upper Body Ergometer (UBE) Duration (Minutes) 5 RPM 70 Seat Position 11 Height 2 Other fwd/bwd Therapeutic Exercises Supine Exercises posture press/low trap activation Supine Exercise Name posture press/low trap activation Reps/Minutes 5SH x 10 Chest press Supine Exercise Name Chest press w/extra shove and return Side bilateral Equipment Used 1# Reps/Minutes 2x10 Sitting Exercises cervical AROM Sitting Exercise Name cervical AROM - rotation and SB Side bilateral Comments pt denies tingling Standing Exercises elbow extension Standing Exercise Name elbow extension Side bilateral Resistance TB2 Comments max verbal and tactile cues for relaxed UT, engage LT isometric shoulder ER/IR/flex Standing Exercise Name isometric shoulder ER/IR/flex Side bilateral Reps/Minutes HEP Comments cued <75% MVC and scapular stab GH extension Standing Exercise Name GH extension Resistance TB2 Comments max verbal and tactile cues for relaxed UT, engage LT GH row Standing Exercise Name GH row Resistance TB2 Comments max verbal and tactile cues for relaxed UT, engage LT Shoulder rolls Standing Exercise Name Fwd/Bkwd shoulder rolls Side bilateral Reps/Minutes 10x Manual Therapy Treatment Soft Tissue Mobilization rhomboids Body Location rhomboids (l>r) Mobilization Type Strumming,Sustained Pressure Intensity/Depth Moderate Body Position Sitting Comments w/ active horizontal adduction /abduction Paraspinals Body Location C6, C7, T1 C/S parapinals R>L Mobilization Type Strumming,Sustained Pressure Intensity/Depth Moderate Body Position Supine Joint Mobilizations scapulothoracic Joint scapulothoracic Direction inferior and rotation Grade III Body Position Prone Thoracic spine Joint Thoracic spine Direction rotation Grade II Body Position Sitting Reps/Duration 3' Comments MWM as pt performs hADD with UE and PT provides rotation glide T1-T3 PT-OP-T Assessment and Plan Start: 09/27/21 18:38 Freq: Status: Active Protocol: Document 11/11/21 15:58 AW (Rec: 11/11/21 16:59 AW [id number]) Physical Therapy Assessment Goals Three Impairment Decreased L UE function ( QUICKdash score 68). Impairment Quickdash: 60-79% impaired ( score 60-70). Short Term Goal (STG) Pt will be able to report improved use of her L dominant hand with more accuracy with brushing of teeth. (10/18/21: Using L arm to brush teeth and back to [facility] 1/2 the time). (10/18/21: Lifting light load without thinking). STG Duration 11/15/21 (10/18/21: MET GOAL Fpc Goal (LTG) Pt will be able to type on computer with accuracy of prior function. (10/18/21: Can type 10 minutes before the hands go numb). 10/28/21 - Typed an entire paper >30 minutes without numbness in hands. LTG Duration 12/30/21 (10/18/21: Improving ) Two Impairment Decreased ability to sleep at night due to L shoulder pain. Short Term Goal (STG) Pt will be educated in proper nighttime posturing for sleep to minimize L shoulder pain. STG Duration 10/11/21 (10/12/21: MET GOAL) Fpc Goal (LTG) Pt will be able to improve ability to sleep at night to 6 -7 hrs. LTG Duration 12/30/21 (10/18/21: MET GOAL) One Impairment Pt lacks appropriates self care HEP. Short Term Goal (STG) Pt will be educated in proper head/neck posturing. STG Duration 10/18/21 (10/12/21: MET GOAL) Fpc Goal (LTG) Pt will be independent in a self care HEP shoulder & elbow strengthening and ex's to assist in proper posturing. (10/15/21: I/S in fwd shoulder rolls to relieve tension in Rhomboids). (10/21/21: I/S pt in passive Rhomboid stretching by tucking chin and forward bending to tolerance). LTG Duration 12/30/21 (10/21/21: Progressed) Assessment Summary Assessment Pt reporting decrease in tingling symptoms as her postural awareness improves. She does still require max verbal and tactile cues to reduce upper trap recruitment with all UE movement. Physical Therapy Plan Frequency and Duration Frequency of Treatment 2x/Week Plan of Care Start Date 10/01/21 Plan of Care End Date 12/30/21 Therapeutic Interventions Therapeutic Interventions Home Exercise Program,Joint Mobilizations,Manual Therapy, Patient/Caregiver Education, Self-Care/Home Management,Soft Tissue Mobilization, Therapeutic Exercises Modalities Cold Pack/Ice Massage,Electric Stimulation,Hot Packs, Ultrasound Next Visit Focus/Plan Next Note Type Treatment Note Next Visit Plan Inhibition of upper traps, scapular stabilization, STM cervical/thoracic as needed for pain management.
--- NOTE | 2021-11-18 16:20 | PT.OTN ---
Current Diagnoses Pain in left shoulder (11/18/21) Radiculopathy, site unspecified (11/18/21) Cervicalgia (11/18/21) Muscle weakness (generalized) (11/18/21) Other muscle spasm (11/18/21) Physical Therapy Treatment Note PT-OP-A Visit Information Start: 09/27/21 18:38 Freq: Status: Active Protocol: Document 11/18/21 15:25 LRN (Rec: 11/18/21 16:17 LRN [id number]) Out-Patient Physical Therapy Visit Information Visit Information Visit Type Treatment Note Visit Start Time 15:25 Visit Stop Time 16:05 Total Visit Minutes 40 Visit Number 11 Evaluation Information Evaluation Date 10/01/21 Precautions Precautions TAPE ALLERGIES. PT-OP-B Current Condition Start: 09/27/21 18:38 Freq: Status: Active Protocol: Document 10/01/21 15:03 LRN (Rec: 10/01/21 16:59 LRN [id number]) Current Condition History of Current Condition Onset Date Jul 28, 2021 Current Complaints Severe pain down the L arm and weakness, numbness in hands. History of Current Condition L shoulder and neck pain. Covid in June. Was constantly fatigued, got booster and within 48 hours could hardly move the L shoulder. In August, started to get tingling and numbness in the lateral hands (little fingers on lateral sides and tips of 4th & 5th fingers) and was told it was inflammation in the neck and has radiated into the shoulders. States she has sheets of white pain down the entire L arm, like she hit her funny bone. The more active she is, the more pain she has. Sleeping is very difficult because she is a side sleeper and se has had to adjust her sleeping to being on her back. She also has heart arrhythmia onset due to COVID. MH and placing her arm overhead helps decrease the pain. Prior Treatments and Tests Gabapentin to help sleep at night. Future Testing and Treatments Planned Massage therapy & accupuncture appointments. Treatment Goals Patient/Caregiver Goals Pt goal with therapy is to improve ability to sleep, and be able to use L dominant hand correctly, and be able to type on computer. Prior Functional Status Baseline Function- ADL's Independent Baseline Function- Mobility Independent Baseline Function- Work/School Independent Baseline Function- Other Able to sleep on 6-7 hrs at night on sides. Able to get up/down from floor without difficulty Current Functional Impairments (Reported) Functional Limitations- ADL's Not able to sleep on sides due to L shoulder pain. Not able to get up/down from floor. 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 Functional Limitations- Recreation/ Can't do sewing due to pain Hobbies and low stamina. Personal Factors Other Personal Factors That May Effect Hx of chronic headaches. 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 L handed dominant. PT-OP-C Subjective Start: 09/27/21 18:38 Freq: Status: Active Protocol: Document 11/18/21 15:25 LRN (Rec: 11/18/21 16:17 LRN [id number]) OP-PT Subjective Patient Comments Patient Comments Working on shoulder more than neck and has been progressing. 3 days ago was working on her refrig for a boiat and stopped it with her L dominant hand. 2 days ago was worse because was in car for 2 hrs, but has been getting better each day. Doing band work she was more sore, but felt better the next day. No numbness, but tingling in hands when doing too much. Bra straps are staying up with improved posture and getting better ROM in the neck. Patient Reported Progress Improving PT-OP-E Functional Tests Start: 09/27/21 18:38 Freq: Status: Active Protocol: Document 10/01/21 15:03 LRN (Rec: 10/01/21 16:59 LRN [id number]) Functional Tests Apley's Scratch Test Action 1- Left Below superior spine of scapula Action 1- Right Below superior spine of scapula Action 2- Left T3 Action 2- Right T3 Action 3- Left T8 Action 3- Right T8 PT-OP-H Neuro Start: 09/27/21 18:38 Freq: Status: Active Protocol: Document 10/01/21 15:03 LRN (Rec: 10/01/21 16:59 LRN [id number]) Sensation Evaluation Gross Sensation Gross Sensation Left UE Impaired,Right UE Impaired Sensation Description Tingling,Pins & [place] Dermatome Impairments C8 Deep Tendon Reflex & Clonus Assessment Deep Tendon Reflex Bilateral Tricep Deep Tendon Reflex 1+ Diminished Bilateral Brachioradialis Deep Tendon Reflex 2+ Normal Roddy Biceps Deep Tendon Reflex 3+ Normal But Brisk PT-OP-J Posture/Palpation/Skin Start: 09/27/21 18:38 Freq: Status: Active Protocol: Document 10/01/21 15:03 LRN (Rec: 10/01/21 16:59 LRN [id number]) Posture Evaluation Position Standing Head/C-Spine Posture Forward Head T-Spine Posture Flattened L-Spine Posture Increased Lordosis Shoulder Posture (L) Forward Arm Posture (L) Internally Rotated,(R) Internally Rotated Pelvis Posture (L) Iliac Crest Superior Knee Posture (L) Genu Valgus,(R) Genu Valgus Palpation Assessment Location R Scapula Palpation Location Scapular positioning Palpation Details Protracted L Scapula Palpation Location Medial border Palpation Findings Muscle Guarding,Tenderness Posterior Neck Palpation Location C7-T2, L UT Palpation Findings Soft Tissue Tightness, Tenderness PT-OP-K Range of Motion Start: 09/27/21 18:38 Freq: Status: Active Protocol: Document 10/01/21 15:03 LRN (Rec: 10/01/21 16:59 LRN [id number]) Cervical Spine Range of Motion Cervical Spine Active Degrees Testing Position Sitting Flexion 55 Extension 60 Rotation Left 80 Rotation Right 80 Lateral Flexion Left 38 Lateral Flexion Right 32 ROM Limitations Muscle Weakness Shoulder Goniometric Range of Motion Shoulder Right Active Shoulder ROM WFL Yes Testing Position Sitting Flexion 180 Abduction 180 External Rotation at 0 degrees Abduction 70 Left Active Shoulder ROM WFL Yes Testing Position Sitting Flexion 180 Extension 180 External Rotation at 0 degrees Abduction 70 Elbow/Forearm Range of Motion Elbow/Forearm Right Active Elbow/Forearm ROM WFL Yes ROM Testing Position Sitting Left Active Elbow/Forearm ROM WFL Yes ROM Testing Position Sitting PT-OP-L Special Tests Start: 09/27/21 18:38 Freq: Status: Active Protocol: Document 10/01/21 15:03 LRN (Rec: 10/01/21 16:59 LRN [id number]) Special Tests Cervical Spine Special Tests Upper Limb Tension Test Test Results Positive ulnar n bilaterally and medial n. L UE, neg radial n.test Comments Stretch felt. Vertebral Artery Test Results Negative bilaterally Traction Test Results Onset feeling of warmth f/b tingling in R arm Comments Inconclusive results Foraminal Compression Test Results Negative bilaterally Spurling's Test Test Results Negative bilaterally PT-OP-M Strength Start: 09/27/21 18:38 Freq: Status: Active Protocol: Document 10/01/21 15:03 LRN (Rec: 10/01/21 16:59 LRN [id number]) Cervical Spine Strength Cervical Spine Manual Muscle Testing Testing Position Sitting Comments Generally 5/5 Shoulder Strength Shoulder Manual Muscle Testing Right Flexion 5 Normal Extension 5 Normal Abduction (C5) 5 Normal Adduction 5 Normal External Rotation 5 Normal Internal Rotation 5 Normal Left Flexion 5 Normal Extension 5 Normal Abduction (C5) 5 Normal Adduction 4 Good External Rotation 5 Normal Internal Rotation 5 Normal Comments Pain in medial border of scapula with MMT of shoulder flex & IR Elbow/Forearm Strength Elbow and Forearm Manual Muscle Testing Right Flexion (C6) 5 Normal Extension (C7) 5 Normal Left Flexion (C6) 5 Normal Extension (C7) 4 Good PT-OP-Q Treatments Start: 09/27/21 18:38 Freq: Status: Active Protocol: Document 11/18/21 15:25 LRN (Rec: 11/18/21 16:17 LRN [id number]) Cardio Equipment Upper Body Ergometer (UBE) Duration (Minutes) 6 RPM 70 Seat Position 11 Height 2 Other fwd/bwd working at 35-36 rpm Therapeutic Exercises Standing Exercises Chest press Standing Exercise Name Chest press with extra shove forward Side bilateral Comments phys cuing for scapular protraction and arms at 90 deg 's flex. elbow extension Standing Exercise Name elbow extension Side bilateral Resistance TB2 Comments max verbal and tactile cues for relaxed UT, engage LT isometric shoulder ER/IR/flex Standing Exercise Name isometric shoulder ER/IR/flex Side bilateral Reps/Minutes HEP Comments cued <75% MVC, scapular stab, tailbone tucked GH extension Standing Exercise Name GH extension Resistance TB2 Comments max verbal and tactile cues for relaxed UT, engage LT GH row Standing Exercise Name GH row Resistance TB2 Comments max verbal and tactile cues for relaxed UT, engage LT Shoulder rolls Standing Exercise Name Fwd/Bkwd shoulder rolls - after ex Side bilateral Reps/Minutes 10x Manual Therapy Treatment Soft Tissue Mobilization rhomboids Body Location rhomboids (l>r) Mobilization Type Strumming,Sustained Pressure Intensity/Depth Moderate Body Position Prone Paraspinals Body Location C6, C7, T1 C/S parapinals R>L Mobilization Type Strumming,Sustained Pressure Intensity/Depth Moderate Body Position Prone Joint Mobilizations Thoracic spine Joint Thoracic spine Direction rotation Grade II Body Position Sitting Reps/Duration 3' Comments MWM as pt performs hADD with UE and PT provides rotation glide T1-T3 C7, T1 Direction PA - oscillations Grade II Body Position Prone PT-OP-T Assessment and Plan Start: 09/27/21 18:38 Freq: Status: Active Protocol: Document 11/18/21 15:25 LRN (Rec: 11/18/21 16:17 LRN [id number]) Physical Therapy Assessment Goals Three Impairment Decreased L UE function ( QUICKdash score 68). Impairment Quickdash: 60-79% impaired ( score 60-70). Short Term Goal (STG) Pt will be able to report improved use of her L dominant hand with more accuracy with brushing of teeth. (10/18/21: Using L arm to brush teeth and back to [facility] 1/2 the time). (10/18/21: Lifting light load without thinking). STG Duration 11/15/21 (10/18/21: MET GOAL Intermediate Goal (LTG) Pt will be able to type on computer with accuracy of prior function. (10/18/21: Can type 10 minutes before the hands go numb). 10/28/21 - Typed an entire paper >30 minutes without numbness in hands. LTG Duration 12/30/21 (10/18/21: Improving ) Two Impairment Decreased ability to sleep at night due to L shoulder pain. Short Term Goal (STG) Pt will be educated in proper nighttime posturing for sleep to minimize L shoulder pain. STG Duration 10/11/21 (10/12/21: MET GOAL) Ordnance Technician Goal (LTG) Pt will be able to improve ability to sleep at night to 6 -7 hrs. LTG Duration 12/30/21 (10/18/21: MET GOAL) One Impairment Pt lacks appropriates self care HEP. Short Term Goal (STG) Pt will be educated in proper head/neck posturing. STG Duration 10/18/21 (10/12/21: MET GOAL) Intermediate Goal (LTG) Pt will be independent in a self care HEP shoulder & elbow strengthening and ex's to assist in proper posturing. (10/15/21: I/S in fwd shoulder rolls to relieve tension in Rhomboids). (10/21/21: I/S pt in passive Rhomboid stretching by tucking chin and forward bending to tolerance). LTG Duration 12/30/21 (10/21/21: Progressed) Assessment Summary Assessment Pt symptoms decreasing. mid T /S is straight. Winging of scapula noted, R>L. Pt has difficulty relaxing UT's. Physical Therapy Plan Frequency and Duration Frequency of Treatment 2x/Week Plan of Care Start Date 10/01/21 Plan of Care End Date 12/30/21 Next Visit Focus/Plan Next Note Type Progress Note Next Visit Plan Inhibition of upper traps, scapular stabilization, STM cervical/thoracic as needed for pain management.
--- NOTE | 2021-12-13 16:38 | PT.OTN ---
Current Diagnoses Pain in left shoulder (12/13/21) Radiculopathy, site unspecified (12/13/21) Cervicalgia (12/13/21) Muscle weakness (generalized) (12/13/21) Other muscle spasm (12/13/21) Physical Therapy Treatment Note PT-OP-A Visit Information Start: 09/27/21 18:38 Freq: Status: Active Protocol: Document 12/13/21 13:48 LRN (Rec: 12/13/21 16:38 LRN [id number]) Out-Patient Physical Therapy Visit Information Visit Information Visit Type Progress Note Visit Start Time 15:19 Visit Stop Time 16:05 Total Visit Minutes 46 Visit Number 12 Evaluation Information Evaluation Date 10/01/21 Precautions Precautions TAPE ALLERGIES. PT-OP-B Current Condition Start: 09/27/21 18:38 Freq: Status: Active Protocol: Document 10/01/21 15:03 LRN (Rec: 10/01/21 16:59 LRN [id number]) Current Condition History of Current Condition Onset Date Jul 28, 2021 Current Complaints Severe pain down the L arm and weakness, numbness in hands. History of Current Condition L shoulder and neck pain. Covid in June. Was constantly fatigued, got booster and within 48 hours could hardly move the L shoulder. In August, started to get tingling and numbness in the lateral hands (little fingers on lateral sides and tips of 4th & 5th fingers) and was told it was inflammation in the neck and has radiated into the shoulders. States she has sheets of white pain down the entire L arm, like she hit her funny bone. The more active she is, the more pain she has. Sleeping is very difficult because she is a side sleeper and se has had to adjust her sleeping to being on her back. She also has heart arrhythmia onset due to COVID. MH and placing her arm overhead helps decrease the pain. Prior Treatments and Tests Gabapentin to help sleep at night. Future Testing and Treatments Planned Massage therapy & accupuncture appointments. Treatment Goals Patient/Caregiver Goals Pt goal with therapy is to improve ability to sleep, and be able to use L dominant hand correctly, and be able to type on computer. Prior Functional Status Baseline Function- ADL's Independent Baseline Function- Mobility Independent Baseline Function- Work/School Independent Baseline Function- Other Able to sleep on 6-7 hrs at night on sides. Able to get up/down from floor without difficulty Current Functional Impairments (Reported) Functional Limitations- ADL's Not able to sleep on sides due to L shoulder pain. Not able to get up/down from floor. 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 Functional Limitations- Recreation/ Can't do sewing due to pain Hobbies and low stamina. Personal Factors Other Personal Factors That May Effect Hx of chronic headaches. 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 L handed dominant. PT-OP-C Subjective Start: 09/27/21 18:38 Freq: Status: Active Protocol: Document 12/13/21 13:48 LRN (Rec: 12/13/21 16:38 LRN [id number]) OP-PT Subjective Patient Comments Patient Comments States she is on blood pressure med now and is having less pain. States the bed at her parents house was bad. Came back from [place] 3 days ago. Bad bed and heat caused a lot of edema. Back to work today. States her L shoulder pain is 2/10. Woke today for first time to have numbness & tingling in L hand due to laying on it wrong. Entire R arm is normal since being put on Lisinipril and Emre medication, water pill. Typing is normal as long as ergonomically is correct. Patient Questionnaires Quick Dash- Upper Extremity Quick Dash UE Score 15.9 Quick Dash UE Impairment 1 to 19% Impaired (Score 1-19) OP-PT Pain Assessment Pain Assessment Grid Paper Pain Assessment Grid Completed Yes Location L shoulder Pain Location Details Pain down underneath brachium & posterior scapula Intensity 2 Scale Used Numeric (0 - 10) Neck Pain Location Details Neck Intensity 0 Scale Used Numeric (0 - 10) PT-OP-E Functional Tests Start: 09/27/21 18:38 Freq: Status: Active Protocol: Document 12/13/21 13:48 LRN (Rec: 12/13/21 16:38 LRN [id number]) Functional Tests Apley's Scratch Test Action 1- Left 2 above inferior angle of scapula Action 1- Right 2 above inferior angle of scapula Action 2- Left T2 Action 2- Right T2 Action 3- Left T8 Action 3- Right T8 PT-OP-H Neuro Start: 09/27/21 18:38 Freq: Status: Active Protocol: Document 10/01/21 15:03 LRN (Rec: 10/01/21 16:59 LRN [id number]) Sensation Evaluation Gross Sensation Gross Sensation Left UE Impaired,Right UE Impaired Sensation Description Tingling,Pins & [place] Dermatome Impairments C8 Deep Tendon Reflex & Clonus Assessment Deep Tendon Reflex Bilateral Tricep Deep Tendon Reflex 1+ Diminished Bilateral Brachioradialis Deep Tendon Reflex 2+ Normal Roddy Biceps Deep Tendon Reflex 3+ Normal But Brisk PT-OP-J Posture/Palpation/Skin Start: 09/27/21 18:38 Freq: Status: Active Protocol: Document 10/01/21 15:03 LRN (Rec: 10/01/21 16:59 LRN [id number]) Posture Evaluation Position Standing Head/C-Spine Posture Forward Head T-Spine Posture Flattened L-Spine Posture Increased Lordosis Shoulder Posture (L) Forward Arm Posture (L) Internally Rotated,(R) Internally Rotated Pelvis Posture (L) Iliac Crest Superior Knee Posture (L) Genu Valgus,(R) Genu Valgus Palpation Assessment Location R Scapula Palpation Location Scapular positioning Palpation Details Protracted L Scapula Palpation Location Medial border Palpation Findings Muscle Guarding,Tenderness Posterior Neck Palpation Location C7-T2, L UT Palpation Findings Soft Tissue Tightness, Tenderness PT-OP-K Range of Motion Start: 09/27/21 18:38 Freq: Status: Active Protocol: Document 12/13/21 13:48 LRN (Rec: 12/13/21 16:38 LRN [id number]) Shoulder Goniometric Range of Motion Shoulder Right Active Testing Position Sitting Comments Active shoulder Flex, AB is WNL. Supine shoulder ER is 85 deg's . Left Active Testing Position Sitting Comments Active shoulder Flex, AB is WNL. Supine shoulder ER is 70 deg's . PT-OP-L Special Tests Start: 09/27/21 18:38 Freq: Status: Active Protocol: Document 10/01/21 15:03 LRN (Rec: 10/01/21 16:59 LRN [id number]) Special Tests Cervical Spine Special Tests Upper Limb Tension Test Test Results Positive ulnar n bilaterally and medial n. L UE, neg radial n.test Comments Stretch felt. Vertebral Artery Test Results Negative bilaterally Traction Test Results Onset feeling of warmth f/b tingling in R arm Comments Inconclusive results Foraminal Compression Test Results Negative bilaterally Spurling's Test Test Results Negative bilaterally PT-OP-M Strength Start: 09/27/21 18:38 Freq: Status: Active Protocol: Document 10/01/21 15:03 LRN (Rec: 10/01/21 16:59 LRN [id number]) Cervical Spine Strength Cervical Spine Manual Muscle Testing Testing Position Sitting Comments Generally 5/5 Shoulder Strength Shoulder Manual Muscle Testing Right Flexion 5 Normal Extension 5 Normal Abduction (C5) 5 Normal Adduction 5 Normal External Rotation 5 Normal Internal Rotation 5 Normal Left Flexion 5 Normal Extension 5 Normal Abduction (C5) 5 Normal Adduction 4 Good External Rotation 5 Normal Internal Rotation 5 Normal Comments Pain in medial border of scapula with MMT of shoulder flex & IR Elbow/Forearm Strength Elbow and Forearm Manual Muscle Testing Right Flexion (C6) 5 Normal Extension (C7) 5 Normal Left Flexion (C6) 5 Normal Extension (C7) 4 Good PT-OP-Q Treatments Start: 09/27/21 18:38 Freq: Status: Active Protocol: Document 12/13/21 13:48 LRN (Rec: 12/13/21 16:38 LRN [id number]) Cardio Equipment Upper Body Ergometer (UBE) Duration (Minutes) 6 RPM 70 Seat Position 11 Height 3 Other 2' fwd/bwd working at 35-36 rpm Therapeutic Exercises Supine Exercises Shoulder AROM Supine Exercise Name ER stretch Side bilateral Comments ROM taken Sitting Exercises Shoulder AROM Sitting Exercise Name Shoulder AROM (flex, AB, ER, IR) Side bilateral Comments ROM and MMT taken Shldr ER/IR Sitting Exercise Name Shldr ER/IR AROM & stretch ( overhead & behind back) Side bilateral Reps/Minutes 10x Comments Pt to do another set of 10 tonight. wrist stretches Sitting Exercise Name phalen's and reverse - with ulnar and radial dev Side bilateral Comments Painfree range. Standing Exercises Chest press Standing Exercise Name Chest press with extra shove forward Side bilateral Reps/Minutes 10x 2 Comments min phys cuing for scapular protraction and arms at 90 deg 's flex. elbow extension Standing Exercise Name elbow extension Side bilateral Resistance TB2 Reps/Minutes 10x 2 Comments max verbal and tactile cues for relaxed UT, engage LT GH extension Standing Exercise Name GH extension Resistance TB2 Reps/Minutes 10x Comments max verbal and tactile cues for relaxed UT, engage LT PT-OP-T Assessment and Plan Start: 09/27/21 18:38 Freq: Status: Active Protocol: Document 12/13/21 13:48 LRN (Rec: 12/13/21 16:38 LRN [id number]) Physical Therapy Assessment Rehab Potential Rehabilitation Potential Good Evaluation Complexity Number of Personal Factors/Comorbidities 3 or More Number of Body Systems Impaired 4 or More Clinical Presentation at Evaluation Evolving Impairments Impairments Activity Tolerance,Pain, Posture,Strength Goals Four Impairment Decreased L UE strength Impairment L wrist flex is 4-/5 L shoulder IR is 4-/5. 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 LTG Duration 01/29/22 Three Impairment Decreased L UE function ( QUICKdash score 68). Impairment Quickdash: 60-79% impaired ( score 60-70). Short Term Goal (STG) Pt will be able to report improved use of her L dominant hand with more accuracy with brushing of teeth. (10/18/21: Using L arm to brush teeth and back to [facility] 1/2 the time). (10/18/21: Lifting light load without thinking). STG Duration 11/15/21 (10/18/21: MET GOAL Radiology Specialist Goal (LTG) Pt will be able to type on computer with accuracy of prior function. (10/18/21: Can type 10 minutes before the hands go numb). 10/28/21 - Typed an entire paper >30 minutes without numbness in hands. (12/13/21: Pt back to prior function speed with typing) LTG Duration 12/30/21 (12/13/21: MET GOAL) Two Impairment Decreased ability to sleep at night due to L shoulder pain. Short Term Goal (STG) Pt will be educated in proper nighttime posturing for sleep to minimize L shoulder pain. STG Duration 10/11/21 (10/12/21: MET GOAL) Half-Way Goal (LTG) Pt will be able to improve ability to sleep at night to 6 -7 hrs. LTG Duration 12/30/21 (10/18/21: MET GOAL) One Impairment Pt lacks appropriates self care HEP. Short Term Goal (STG) Pt will be educated in proper head/neck posturing. STG Duration 10/18/21 (10/12/21: MET GOAL) Half-Way Goal (LTG) Pt will be independent in a self care HEP shoulder & elbow strengthening and ex's to assist in proper posturing. (10/15/21: I/S in fwd shoulder rolls to relieve tension in Rhomboids). (10/21/21: I/S pt in passive Rhomboid stretching by tucking chin and forward bending to tolerance). LTG Duration 01/29/22 (10/21/21: Progressed) Progress Towards Goals Progress Comments LTG #3 MET. Assessment Summary Assessment Pt returns from vacation with improved RUE function and lessening of pain in LUE; possibly from decreased edema with use of blood pressure medications. Her function per UE Quickdash score improved from 68% impaired to 15% impaired. Her UE pain levels have lessened overall. Pt still has lingering pain in the L UE and has pain in R UE when she retains water. Her L UE pain is low level like a charley horse 2-3/10 ( initially was 6/10 at L shoulder. With strengthening on the Upper body machine stuffer ( UBE), pt had pain in lateral brachium with bkwd pulling motion of the arms (not fwd pushing motion). 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 Today she had no complaints of arm pain with ex's, but pt reports typically she hurts later in the day after exercising. Physical Therapy Plan Frequency and Duration Frequency of Treatment 1-2 times per week Plan of Care Start Date 12/13/21 Plan of Care End Date 01/29/22 Therapeutic Interventions Therapeutic Interventions Home Exercise Program,Joint Mobilizations,Manual Therapy, Patient/Caregiver Education, Self-Care/Home Management,Soft Tissue Mobilization, Therapeutic Exercises Modalities Cold Pack/Ice Massage,Electric Stimulation,Hot Packs, Ultrasound Next Visit Focus/Plan Next Note Type Treatment Note Next Visit Plan Issue HEP for shoulder and elbow, wrist strengthening ( LTG #1). 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 Focus on L UE strengthening for sewing needs in addition to scapular stabilization with inhibition of upper traps, STM cervical/thoracic as needed for pain management.
--- NOTE | 2021-12-13 16:39 | PT.OPPOC ---
Physical, Occupational & Speech Therapy At [facility] Current Diagnoses Pain in left shoulder (12/13/21) Radiculopathy, site unspecified (12/13/21) Cervicalgia (12/13/21) Muscle weakness (generalized) (12/13/21) Other muscle spasm (12/13/21) Visit Care Team Role Provider Type Adam Mcgovern MD Family Provider Physician Primary Care Provider Specialty: Family Practice Address: [address] [place] [address], [address] Email: [email or web address] Attending Provider Advanced Heat Treating Operator Referring Provider Specialty: Medical Address: [address], [address] Email: [email or web address] Plan Of Care PT-OP-T Assessment and Plan Start: 09/27/21 18:38 Freq: Status: Active Protocol: Document 12/13/21 13:48 LRN (Rec: 12/13/21 16:38 LRN [id number]) Physical Therapy Assessment Rehab Potential Rehabilitation Potential Good Evaluation Complexity Number of Personal Factors/Comorbidities 3 or More Number of Body Systems Impaired 4 or More Clinical Presentation at Evaluation Evolving Impairments Impairments Activity Tolerance,Pain, Posture,Strength Goals Four Impairment Decreased L UE strength Impairment L wrist flex is 4-/5 L shoulder IR is 4-/5. 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 LTG Duration 01/29/22 Three Impairment Decreased L UE function ( QUICKdash score 68). Impairment Quickdash: 60-79% impaired ( score 60-70). Short Term Goal (STG) Pt will be able to report improved use of her L dominant hand with more accuracy with brushing of teeth. (10/18/21: Using L arm to brush teeth and back to [facility] 1/2 the time). (10/18/21: Lifting light load without thinking). STG Duration 11/15/21 (10/18/21: MET GOAL [facility] Goal (LTG) Pt will be able to type on computer with accuracy of prior function. (10/18/21: Can type 10 minutes before the hands go numb). 10/28/21 - Typed an entire paper >30 minutes without numbness in hands. (12/13/21: Pt back to prior function speed with typing) LTG Duration 12/30/21 (12/13/21: MET GOAL) Two Impairment Decreased ability to sleep at night due to L shoulder pain. Short Term Goal (STG) Pt will be educated in proper nighttime posturing for sleep to minimize L shoulder pain. STG Duration 10/11/21 (10/12/21: MET GOAL) Lead Nurse Goal (LTG) Pt will be able to improve ability to sleep at night to 6 -7 hrs. LTG Duration 12/30/21 (10/18/21: MET GOAL) One Impairment Pt lacks appropriates self care HEP. Short Term Goal (STG) Pt will be educated in proper head/neck posturing. STG Duration 10/18/21 (10/12/21: MET GOAL) Lead Nurse Goal (LTG) Pt will be independent in a self care HEP shoulder & elbow strengthening and ex's to assist in proper posturing. (10/15/21: I/S in fwd shoulder rolls to relieve tension in Rhomboids). (10/21/21: I/S pt in passive Rhomboid stretching by tucking chin and forward bending to tolerance). LTG Duration 01/29/22 (10/21/21: Progressed) Progress Towards Goals Progress Comments LTG #3 MET. Assessment Summary Assessment Pt returns from vacation with improved RUE function and lessening of pain in LUE; possibly from decreased edema with use of blood pressure medications. Her function per UE Quickdash score improved from 68% impaired to 15% impaired. Her UE pain levels have lessened overall. Pt still has lingering pain in the L UE and has pain in R UE when she retains water. Her L UE pain is low level like a charley horse 2-3/10 ( initially was 6/10 at L shoulder. With strengthening on the Upper body restaurant crew ( UBE), pt had pain in lateral brachium with bkwd pulling motion of the arms (not fwd pushing motion). 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 Today she had no complaints of arm pain with ex's, but pt reports typically she hurts later in the day after exercising. Physical Therapy Plan Frequency and Duration Frequency of Treatment 1-2 times per week Plan of Care Start Date 12/13/21 Plan of Care End Date 01/29/22 Therapeutic Interventions Therapeutic Interventions Home Exercise Program,Joint Mobilizations,Manual Therapy, Patient/Caregiver Education, Self-Care/Home Management,Soft Tissue Mobilization, Therapeutic Exercises Modalities Cold Pack/Ice Massage,Electric Stimulation,Hot Packs, Ultrasound Next Visit Focus/Plan Next Note Type Treatment Note Next Visit Plan Issue HEP for shoulder and elbow, wrist strengthening ( LTG #1). 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 Focus on L UE strengthening for sewing needs in addition to scapular stabilization with inhibition of upper traps, STM cervical/thoracic as needed for pain management. Plan of Care Dates Plan of Care Start Date 12/13/21 Plan of Care End Date 01/29/22 Electronically Signed by: Maribel Elliott, PT 12/13/21 [id number] Please Sign and Return: I have reviewed this Plan of Care and certify that the skilled therapy services above are required to meet the patient?s needs. Physician Signature Date Printed Name and Credentials Clinical Instructor Signature Printed Name and Credentials
--- NOTE | 2021-12-23 17:02 | PT.OTN ---
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 Pt is LHD. Left: 60, 60, 50. Right: 62, 48, 42. Original Note: Current Diagnoses Pain in left shoulder (12/23/21) Radiculopathy, site unspecified (12/23/21) Cervicalgia (12/23/21) Muscle weakness (generalized) (12/23/21) Other muscle spasm (12/23/21) Physical Therapy Treatment Note PT-OP-A Visit Information Start: 09/27/21 18:38 Freq: Status: Active Protocol: Document 12/23/21 16:03 AW (Rec: 12/23/21 17:02 AW [id number]) Out-Patient Physical Therapy Visit Information Visit Information Visit Type Treatment Note Visit Start Time 16:04 Visit Stop Time 16:15 Total Visit Minutes 41 Visit Number 13 Evaluation Information Evaluation Date 10/01/21 Precautions Precautions TAPE ALLERGIES. PT-OP-B Current Condition Start: 09/27/21 18:38 Freq: Status: Active Protocol: Document 10/01/21 15:03 LRN (Rec: 10/01/21 16:59 LRN [id number]) Current Condition History of Current Condition Onset Date Jul 28, 2021 Current Complaints Severe pain down the L arm and weakness, numbness in hands. History of Current Condition L shoulder and neck pain. Covid in June. Was constantly fatigued, got booster and within 48 hours could hardly move the L shoulder. In August, started to get tingling and numbness in the lateral hands (little fingers on lateral sides and tips of 4th & 5th fingers) and was told it was inflammation in the neck and has radiated into the shoulders. States she has sheets of white pain down the entire L arm, like she hit her funny bone. The more active she is, the more pain she has. Sleeping is very difficult because she is a side sleeper and seh has had to adjust her sleeping to being on her back. She also has heart arrhythmia onset due to COVID. MH and placing her arm overhead helps decrease the pain. Prior Treatments and Tests Gabapentin to help sleep at night. Future Testing and Treatments Planned Massage therapy & accupuncture appointments. Treatment Goals Patient/Caregiver Goals Pt goal with therapy is to improve ability to sleep, and be able to use L dominant hand correctly, and be able to type on computer. Prior Functional Status Baseline Function- ADL's Independent Baseline Function- Mobility Independent Baseline Function- Work/School Independent Baseline Function- Other Able to sleep on 6-7 hrs at night on sides. Able to get up/down from floor without difficulty Current Functional Impairments (Reported) Functional Limitations- ADL's Not able to sleep on sides due to L shoulder pain. Not able to get up/down from floor. 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 Functional Limitations- Recreation/ Can't do sewing due to pain Hobbies and low stamina. Personal Factors Other Personal Factors That May Effect Hx of chronic headaches. 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 L handed dominant. PT-OP-C Subjective Start: 09/27/21 18:38 Freq: Status: Active Protocol: Document 12/23/21 16:03 AW (Rec: 12/23/21 17:02 AW [id number]) OP-PT Subjective Patient Comments Patient Comments Lisinopril and HCTZ have been effective for BP. Numbness LUEhas been creeping up overall but is better today. PT-OP-E Functional Tests Start: 09/27/21 18:38 Freq: Status: Active Protocol: Document 12/13/21 13:48 LRN (Rec: 12/13/21 16:38 LRN [id number]) Functional Tests Apley's Scratch Test Action 1- Left 2 above inferior angle of scapula Action 1- Right 2 above inferior angle of scapula Action 2- Left T2 Action 2- Right T2 Action 3- Left T8 Action 3- Right T8 PT-OP-H Neuro Start: 09/27/21 18:38 Freq: Status: Active Protocol: Document 10/01/21 15:03 LRN (Rec: 10/01/21 16:59 LRN [id number]) Sensation Evaluation Gross Sensation Gross Sensation Left UE Impaired,Right UE Impaired Sensation Description Tingling,Pins & [place] Dermatome Impairments C8 Deep Tendon Reflex & Clonus Assessment Deep Tendon Reflex Bilateral Tricep Deep Tendon Reflex 1+ Diminished Bilateral Brachioradialis Deep Tendon Reflex 2+ Normal Roddy Biceps Deep Tendon Reflex 3+ Normal But Brisk PT-OP-J Posture/Palpation/Skin Start: 09/27/21 18:38 Freq: Status: Active Protocol: Document 10/01/21 15:03 LRN (Rec: 10/01/21 16:59 LRN [id number]) Posture Evaluation Position Standing Head/C-Spine Posture Forward Head T-Spine Posture Flattened L-Spine Posture Increased Lordosis Shoulder Posture (L) Forward Arm Posture (L) Internally Rotated,(R) Internally Rotated Pelvis Posture (L) Iliac Crest Superior Knee Posture (L) Genu Valgus,(R) Genu Valgus Palpation Assessment Location R Scapula Palpation Location Scapular positioning Palpation Details Protracted L Scapula Palpation Location Medial border Palpation Findings Muscle Guarding,Tenderness Posterior Neck Palpation Location C7-T2, L UT Palpation Findings Soft Tissue Tightness, Tenderness PT-OP-K Range of Motion Start: 09/27/21 18:38 Freq: Status: Active Protocol: Document 12/13/21 13:48 LRN (Rec: 12/13/21 16:38 LRN [id number]) Shoulder Goniometric Range of Motion Shoulder Right Active Testing Position Sitting Comments Active shoulder Flex, AB is WNL. Supine shoulder ER is 85 deg's . Left Active Testing Position Sitting Comments Active shoulder Flex, AB is WNL. Supine shoulder ER is 70 deg's . PT-OP-L Special Tests Start: 09/27/21 18:38 Freq: Status: Active Protocol: Document 10/01/21 15:03 LRN (Rec: 10/01/21 16:59 LRN [id number]) Special Tests Cervical Spine Special Tests Upper Limb Tension Test Test Results Positive ulnar n bilaterally and medial n. L UE, neg radial n.test Comments Stretch felt. Vertebral Artery Test Results Negative bilaterally Traction Test Results Onset feeling of warmth f/b tingling in R arm Comments Inconclusive results Foraminal Compression Test Results Negative bilaterally Spurling's Test Test Results Negative bilaterally PT-OP-M Strength Start: 09/27/21 18:38 Freq: Status: Active Protocol: Document 10/01/21 15:03 LRN (Rec: 10/01/21 16:59 LRN [id number]) Cervical Spine Strength Cervical Spine Manual Muscle Testing Testing Position Sitting Comments Generally 5/5 Shoulder Strength Shoulder Manual Muscle Testing Right Flexion 5 Normal Extension 5 Normal Abduction (C5) 5 Normal Adduction 5 Normal External Rotation 5 Normal Internal Rotation 5 Normal Left Flexion 5 Normal Extension 5 Normal Abduction (C5) 5 Normal Adduction 4 Good External Rotation 5 Normal Internal Rotation 5 Normal Comments Pain in medial border of scapula with MMT of shoulder flex & IR Elbow/Forearm Strength Elbow and Forearm Manual Muscle Testing Right Flexion (C6) 5 Normal Extension (C7) 5 Normal Left Flexion (C6) 5 Normal Extension (C7) 4 Good PT-OP-Q Treatments Start: 09/27/21 18:38 Freq: Status: Active Protocol: Document 12/23/21 16:03 AW (Rec: 12/23/21 17:02 AW [id number]) Cardio Equipment Upper Body Ergometer (UBE) Duration (Minutes) 6 RPM 70 Seat Position 11 Height 3 Other 2' fwd/bwd working at 35-36 rpm Therapeutic Exercises Supine Exercises posture press/low trap activation Supine Exercise Name posture press/low trap activation Reps/Minutes 5SH x 10 Alternate arm lifts Supine Exercise Name Alternate arm lifts to 90 deg' s Side bilateral Equipment Used 3# Reps/Minutes 10x 2 Chest press Supine Exercise Name Chest press w/extra shove and return Side bilateral Equipment Used 1# Reps/Minutes 2x10 Sitting Exercises wrist flex/ext Equipment Used red flex bar Comments cued slow movement; limited R wrist ext 2/2 previous surgery wrist stretches Sitting Exercise Name phalen's and reverse - with ulnar and radial dev Side bilateral Comments Painfree range. Standing Exercises wall push up Standing Exercise Name wall push up Equipment Used feet ~2.5' from wall Reps/Minutes 2x10 elbow extension Standing Exercise Name elbow extension Side bilateral Resistance TB2 Reps/Minutes 10x 2 Comments max verbal and tactile cues for relaxed UT, engage LT GH row Standing Exercise Name GH row Resistance TB2 Comments max verbal and tactile cues for relaxed UT, engage LT Shoulder rolls Standing Exercise Name Fwd/Bkwd shoulder rolls - after ex Side bilateral Reps/Minutes 10x Manual Therapy Treatment Soft Tissue Mobilization rhomboids Body Location rhomboids (l>r) Mobilization Type Strumming,Sustained Pressure Intensity/Depth Moderate Body Position Sitting PT-OP-T Assessment and Plan Start: 09/27/21 18:38 Freq: Status: Active Protocol: Document 12/23/21 16:03 AW (Rec: 12/23/21 17:02 AW [id number]) Physical Therapy Assessment Goals Four Impairment Decreased L UE strength Impairment L wrist flex is 4-/5 L shoulder IR is 4-/5. 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 LTG Duration 01/29/22 Three Impairment Decreased L UE function ( QUICKdash score 68). Impairment Quickdash: 60-79% impaired ( score 60-70). Short Term Goal (STG) Pt will be able to report improved use of her L dominant hand with more accuracy with brushing of teeth. (10/18/21: Using L arm to brush teeth and back to [facility] 1/2 the time). (10/18/21: Lifting light load without thinking). STG Duration 11/15/21 (10/18/21: MET GOAL Mcfp Goal (LTG) Pt will be able to type on computer with accuracy of prior function. (10/18/21: Can type 10 minutes before the hands go numb). 10/28/21 - Typed an entire paper >30 minutes without numbness in hands. (12/13/21: Pt back to prior function speed with typing) LTG Duration 12/30/21 (12/13/21: MET GOAL) Two Impairment Decreased ability to sleep at night due to L shoulder pain. Short Term Goal (STG) Pt will be educated in proper nighttime posturing for sleep to minimize L shoulder pain. STG Duration 10/11/21 (10/12/21: MET GOAL) Medical Case Worker Goal (LTG) Pt will be able to improve ability to sleep at night to 6 -7 hrs. LTG Duration 12/30/21 (10/18/21: MET GOAL) One Impairment Pt lacks appropriates self care HEP. Short Term Goal (STG) Pt will be educated in proper head/neck posturing. STG Duration 10/18/21 (10/12/21: MET GOAL) Mcfp Goal (LTG) Pt will be independent in a self care HEP shoulder & elbow strengthening and ex's to assist in proper posturing. (10/15/21: I/S in fwd shoulder rolls to relieve tension in Rhomboids). (10/21/21: I/S pt in passive Rhomboid stretching by tucking chin and forward bending to tolerance). LTG Duration 01/29/22 (10/21/21: Progressed) Assessment Summary Assessment Pt states diuresis has been effective in controlling BP and she believes has also reduced her UE pain and numbness. Focused treatment today on wrist strength as well as global UE strength and alignment. Physical Therapy Plan Frequency and Duration Frequency of Treatment 1-2 times per week Plan of Care Start Date 12/13/21 Plan of Care End Date 01/29/22 Therapeutic Interventions Therapeutic Interventions Home Exercise Program,Joint Mobilizations,Manual Therapy, Patient/Caregiver Education, Self-Care/Home Management,Soft Tissue Mobilization, Therapeutic Exercises Modalities Cold Pack/Ice Massage,Electric Stimulation,Hot Packs, Ultrasound Next Visit Focus/Plan Next Note Type Treatment Note Next Visit Plan Issue HEP for shoulder and elbow, wrist strengthening ( LTG #1). Check inside sales coordinator strength. Focus on L UE strengthening for sewing needs in addition to scapular stabilization with inhibition of upper traps, STM cervical/thoracic as needed for pain management.
--- NOTE | 2021-12-28 16:54 | PT.OTN ---
Current Diagnoses Pain in left shoulder (12/28/21) Radiculopathy, site unspecified (12/28/21) Cervicalgia (12/28/21) Muscle weakness (generalized) (12/28/21) Other muscle spasm (12/28/21) Physical Therapy Treatment Note PT-OP-A Visit Information Start: 09/27/21 18:38 Freq: Status: Active Protocol: Document 12/28/21 16:00 AW (Rec: 12/28/21 16:54 AW [id number]) Out-Patient Physical Therapy Visit Information Visit Information Visit Type Treatment Note Visit Start Time 16:07 Visit Stop Time 16:47 Total Visit Minutes 40 Visit Number 14 Number of PROGRAM ADMINISTRATOR Visits 0 Evaluation Information Evaluation Date 10/01/21 Precautions Precautions TAPE ALLERGIES. PT-OP-B Current Condition Start: 09/27/21 18:38 Freq: Status: Active Protocol: Document 10/01/21 15:03 LRN (Rec: 10/01/21 16:59 LRN [id number]) Current Condition History of Current Condition Onset Date Jul 28, 2021 Current Complaints Severe pain down the L arm and weakness, numbness in hands. History of Current Condition L shoulder and neck pain. Covid in June. Was constantly fatigued, got booster and within 48 hours could hardly move the L shoulder. In August, started to get tingling and numbness in the lateral hands (little fingers on lateral sides and tips of 4th & 5th fingers) and was told it was inflammation in the neck and has radiated into the shoulders. States she has sheets of white pain down the entire L arm, like she hit her funny bone. The more active she is, the more pain she has. Sleeping is very difficult because she is a side sleeper and se has had to adjust her sleeping to being on her back. She also has heart arrhythmia onset due to COVID. MH and placing her arm overhead helps decrease the pain. Prior Treatments and Tests Gabapentin to help sleep at night. Future Testing and Treatments Planned Massage therapy & accupuncture appointments. Treatment Goals Patient/Caregiver Goals Pt goal with therapy is to improve ability to sleep, and be able to use L dominant hand correctly, and be able to type on computer. Prior Functional Status Baseline Function- ADL's Independent Baseline Function- Mobility Independent Baseline Function- Work/School Independent Baseline Function- Other Able to sleep on 6-7 hrs at night on sides. Able to get up/down from floor without difficulty Current Functional Impairments (Reported) Functional Limitations- ADL's Not able to sleep on sides due to L shoulder pain. Not able to get up/down from floor. 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 Functional Limitations- Recreation/ Can't do sewing due to pain Hobbies and low stamina. Personal Factors Other Personal Factors That May Effect Hx of chronic headaches. 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 L handed dominant. PT-OP-C Subjective Start: 09/27/21 18:38 Freq: Status: Active Protocol: Document 12/28/21 16:00 AW (Rec: 12/28/21 16:54 AW [id number]) OP-PT Subjective Patient Comments Patient Comments Was sore after PT last week and then was in the car several hours Monday which made burning sensation worse but is better now. Was able to do wallpapering on Monday. PT-OP-E Functional Tests Start: 09/27/21 18:38 Freq: Status: Active Protocol: Document 12/13/21 13:48 LRN (Rec: 12/13/21 16:38 LRN [id number]) Functional Tests Apley's Scratch Test Action 1- Left 2 above inferior angle of scapula Action 1- Right 2 above inferior angle of scapula Action 2- Left T2 Action 2- Right T2 Action 3- Left T8 Action 3- Right T8 PT-OP-H Neuro Start: 09/27/21 18:38 Freq: Status: Active Protocol: Document 10/01/21 15:03 LRN (Rec: 10/01/21 16:59 LRN [id number]) Sensation Evaluation Gross Sensation Gross Sensation Left UE Impaired,Right UE Impaired Sensation Description Tingling,Pins & [place] Dermatome Impairments C8 Deep Tendon Reflex & Clonus Assessment Deep Tendon Reflex Bilateral Tricep Deep Tendon Reflex 1+ Diminished Bilateral Brachioradialis Deep Tendon Reflex 2+ Normal Roddy Biceps Deep Tendon Reflex 3+ Normal But Brisk PT-OP-J Posture/Palpation/Skin Start: 09/27/21 18:38 Freq: Status: Active Protocol: Document 10/01/21 15:03 LRN (Rec: 10/01/21 16:59 LRN [id number]) Posture Evaluation Position Standing Head/C-Spine Posture Forward Head T-Spine Posture Flattened L-Spine Posture Increased Lordosis Shoulder Posture (L) Forward Arm Posture (L) Internally Rotated,(R) Internally Rotated Pelvis Posture (L) Iliac Crest Superior Knee Posture (L) Genu Valgus,(R) Genu Valgus Palpation Assessment Location R Scapula Palpation Location Scapular positioning Palpation Details Protracted L Scapula Palpation Location Medial border Palpation Findings Muscle Guarding,Tenderness Posterior Neck Palpation Location C7-T2, L UT Palpation Findings Soft Tissue Tightness, Tenderness PT-OP-K Range of Motion Start: 09/27/21 18:38 Freq: Status: Active Protocol: Document 12/13/21 13:48 LRN (Rec: 12/13/21 16:38 LRN [id number]) Shoulder Goniometric Range of Motion Shoulder Right Active Testing Position Sitting Comments Active shoulder Flex, AB is WNL. Supine shoulder ER is 85 deg's . Left Active Testing Position Sitting Comments Active shoulder Flex, AB is WNL. Supine shoulder ER is 70 deg's . PT-OP-L Special Tests Start: 09/27/21 18:38 Freq: Status: Active Protocol: Document 10/01/21 15:03 LRN (Rec: 10/01/21 16:59 LRN [id number]) Special Tests Cervical Spine Special Tests Upper Limb Tension Test Test Results Positive ulnar n bilaterally and medial n. L UE, neg radial n.test Comments Stretch felt. Vertebral Artery Test Results Negative bilaterally Traction Test Results Onset feeling of warmth f/b tingling in R arm Comments Inconclusive results Foraminal Compression Test Results Negative bilaterally Spurling's Test Test Results Negative bilaterally PT-OP-M Strength Start: 09/27/21 18:38 Freq: Status: Active Protocol: Document 10/01/21 15:03 LRN (Rec: 10/01/21 16:59 LRN [id number]) Cervical Spine Strength Cervical Spine Manual Muscle Testing Testing Position Sitting Comments Generally 5/5 Shoulder Strength Shoulder Manual Muscle Testing Right Flexion 5 Normal Extension 5 Normal Abduction (C5) 5 Normal Adduction 5 Normal External Rotation 5 Normal Internal Rotation 5 Normal Left Flexion 5 Normal Extension 5 Normal Abduction (C5) 5 Normal Adduction 4 Good External Rotation 5 Normal Internal Rotation 5 Normal Comments Pain in medial border of scapula with MMT of shoulder flex & IR Elbow/Forearm Strength Elbow and Forearm Manual Muscle Testing Right Flexion (C6) 5 Normal Extension (C7) 5 Normal Left Flexion (C6) 5 Normal Extension (C7) 4 Good PT-OP-Q Treatments Start: 09/27/21 18:38 Freq: Status: Active Protocol: Document 12/28/21 16:00 AW (Rec: 12/28/21 16:54 AW [id number]) Cardio Equipment Upper Body Ergometer (UBE) Duration (Minutes) 6 RPM 75 Seat Position 11 Height 3 Other 2' fwd/bwd working at 35-36 rpm Therapeutic Exercises Supine Exercises pec stretch Supine Exercise Name pec stretch Side bilateral Equipment Used black foam roll; Comments snow rosaura movement > nataly [place] Alternate arm lifts Supine Exercise Name Alternate arm lifts - full flexion Side bilateral Equipment Used 3#, foam roll Reps/Minutes 10x 2 Sidelying Exercises open book Sidelying Exercise Name open book Side bilateral Resistance AROM Reps/Minutes x8 Standing Exercises wall push up Standing Exercise Name wall push up Equipment Used feet ~2.5' from wall Reps/Minutes 2x10 Comments consider Bosu next visit elbow extension Standing Exercise Name elbow extension Side bilateral Resistance TB2 Reps/Minutes 10x 2 Comments max verbal and tactile cues for relaxed UT, engage LT GH extension Standing Exercise Name GH extension Resistance TB3 Reps/Minutes 10x Comments max verbal and tactile cues for relaxed UT, engage LT Shoulder rolls Standing Exercise Name Fwd/Bkwd shoulder rolls - after ex Side bilateral Reps/Minutes 10x Manual Therapy Treatment Soft Tissue Mobilization rhomboids Body Location rhomboids (l>r) Mobilization Type Strumming,Sustained Pressure Intensity/Depth Moderate Body Position Sitting Paraspinals Body Location C6, C7, T1 C/S parapinals R>L Mobilization Type Strumming,Sustained Pressure Intensity/Depth Moderate Body Position Prone Joint Mobilizations C7, T1 Direction PA - oscillations Grade II Body Position Prone Manual Techniques MWM: C7,T1 R rot with chest press Type WMW: C7,T1 R rot w/chest press Body Location C7, T1 Body Position Supine Reps/Duration 10' PT-OP-T Assessment and Plan Start: 09/27/21 18:38 Freq: Status: Active Protocol: Document 12/28/21 16:00 AW (Rec: 12/28/21 16:54 AW [id number]) Physical Therapy Assessment Goals Four Impairment Decreased L UE strength Impairment L wrist flex is 4-/5 L shoulder IR is 4-/5. 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 LTG Duration 01/29/22 Three Impairment Decreased L UE function ( QUICKdash score 68). Impairment Quickdash: 60-79% impaired ( score 60-70). Short Term Goal (STG) Pt will be able to report improved use of her L dominant hand with more accuracy with brushing of teeth. (10/18/21: Using L arm to brush teeth and back to [facility] 1/2 the time). (10/18/21: Lifting light load without thinking). STG Duration 11/15/21 (10/18/21: MET GOAL Prison Goal (LTG) Pt will be able to type on computer with accuracy of prior function. (10/18/21: Can type 10 minutes before the hands go numb). 10/28/21 - Typed an entire paper >30 minutes without numbness in hands. (12/13/21: Pt back to prior function speed with typing) LTG Duration 12/30/21 (12/13/21: MET GOAL) Two Impairment Decreased ability to sleep at night due to L shoulder pain. Short Term Goal (STG) Pt will be educated in proper nighttime posturing for sleep to minimize L shoulder pain. STG Duration 10/11/21 (10/12/21: MET GOAL) Quilt Stuffer Goal (LTG) Pt will be able to improve ability to sleep at night to 6 -7 hrs. LTG Duration 12/30/21 (10/18/21: MET GOAL) One Impairment Pt lacks appropriates self care HEP. Short Term Goal (STG) Pt will be educated in proper head/neck posturing. STG Duration 10/18/21 (10/12/21: MET GOAL) Prison Goal (LTG) Pt will be independent in a self care HEP shoulder & elbow strengthening and ex's to assist in proper posturing. (10/15/21: I/S in fwd shoulder rolls to relieve tension in Rhomboids). (10/21/21: I/S pt in passive Rhomboid stretching by tucking chin and forward bending to tolerance). LTG Duration 01/29/22 (10/21/21: Progressed) Physical Therapy Plan Next Visit Focus/Plan Next Note Type Treatment Note Next Visit Plan Assess [place] press; Issue HEP for shoulder and elbow, wrist strengthening (LTG #1). Focus on L UE strengthening for sewing needs in addition to scapular stabilization with inhibition of upper traps, STM cervical/thoracic as needed for pain mgmt.
--- NOTE | 2021-12-30 16:57 | PT.OTN ---
Current Diagnoses Pain in left shoulder (12/30/21) Radiculopathy, site unspecified (12/30/21) Cervicalgia (12/30/21) Muscle weakness (generalized) (12/30/21) Other muscle spasm (12/30/21) Physical Therapy Treatment Note PT-OP-A Visit Information Start: 09/27/21 18:38 Freq: Status: Active Protocol: Document 12/30/21 16:04 AW (Rec: 12/30/21 16:57 AW [id number]) Out-Patient Physical Therapy Visit Information Visit Information Visit Type Treatment Note Visit Start Time 16:04 Visit Stop Time 16:45 Total Visit Minutes 41 Visit Number 15 Number of ARCHITECTURE INTERN Visits 0 Evaluation Information Evaluation Date 10/01/21 Precautions Precautions TAPE ALLERGIES. PT-OP-B Current Condition Start: 09/27/21 18:38 Freq: Status: Active Protocol: Document 10/01/21 15:03 LRN (Rec: 10/01/21 16:59 LRN [id number]) Current Condition History of Current Condition Onset Date Jul 28, 2021 Current Complaints Severe pain down the L arm and weakness, numbness in hands. History of Current Condition L shoulder and neck pain. Covid in June. Was constantly fatigued, got booster and within 48 hours could hardly move the L shoulder. In August, started to get tingling and numbness in the lateral hands (little fingers on lateral sides and tips of 4th & 5th fingers) and was told it was inflammation in the neck and has radiated into the shoulders. States she has sheets of white pain down the entire L arm, like she hit her funny bone. The more active she is, the more pain she has. Sleeping is very difficult because she is a side sleeper and se has had to adjust her sleeping to being on her back. She also has heart arrhythmia onset due to COVID. MH and placing her arm overhead helps decrease the pain. Prior Treatments and Tests Gabapentin to help sleep at night. Future Testing and Treatments Planned Massage therapy & accupuncture appointments. Treatment Goals Patient/Caregiver Goals Pt goal with therapy is to improve ability to sleep, and be able to use L dominant hand correctly, and be able to type on computer. Prior Functional Status Baseline Function- ADL's Independent Baseline Function- Mobility Independent Baseline Function- Work/School Independent Baseline Function- Other Able to sleep on 6-7 hrs at night on sides. Able to get up/down from floor without difficulty Current Functional Impairments (Reported) Functional Limitations- ADL's Not able to sleep on sides due to L shoulder pain. Not able to get up/down from floor. 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 Functional Limitations- Recreation/ Can't do sewing due to pain Hobbies and low stamina. Personal Factors Other Personal Factors That May Effect Hx of chronic headaches. 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 L handed dominant. PT-OP-C Subjective Start: 09/27/21 18:38 Freq: Status: Active Protocol: Document 12/30/21 16:04 AW (Rec: 12/30/21 16:57 AW [id number]) OP-PT Subjective Patient Comments Patient Comments Pt has had a stressful week and has not slept well. Her left arm feels dipped in ice water. PT-OP-E Functional Tests Start: 09/27/21 18:38 Freq: Status: Active Protocol: Document 12/13/21 13:48 LRN (Rec: 12/13/21 16:38 LRN [id number]) Functional Tests Apley's Scratch Test Action 1- Left 2 above inferior angle of scapula Action 1- Right 2 above inferior angle of scapula Action 2- Left T2 Action 2- Right T2 Action 3- Left T8 Action 3- Right T8 PT-OP-H Neuro Start: 09/27/21 18:38 Freq: Status: Active Protocol: Document 10/01/21 15:03 LRN (Rec: 10/01/21 16:59 LRN [id number]) Sensation Evaluation Gross Sensation Gross Sensation Left UE Impaired,Right UE Impaired Sensation Description Tingling,Pins & [place] Dermatome Impairments C8 Deep Tendon Reflex & Clonus Assessment Deep Tendon Reflex Bilateral Tricep Deep Tendon Reflex 1+ Diminished Bilateral Brachioradialis Deep Tendon Reflex 2+ Normal Roddy Biceps Deep Tendon Reflex 3+ Normal But Brisk PT-OP-J Posture/Palpation/Skin Start: 09/27/21 18:38 Freq: Status: Active Protocol: Document 10/01/21 15:03 LRN (Rec: 10/01/21 16:59 LRN [id number]) Posture Evaluation Position Standing Head/C-Spine Posture Forward Head T-Spine Posture Flattened L-Spine Posture Increased Lordosis Shoulder Posture (L) Forward Arm Posture (L) Internally Rotated,(R) Internally Rotated Pelvis Posture (L) Iliac Crest Superior Knee Posture (L) Genu Valgus,(R) Genu Valgus Palpation Assessment Location R Scapula Palpation Location Scapular positioning Palpation Details Protracted L Scapula Palpation Location Medial border Palpation Findings Muscle Guarding,Tenderness Posterior Neck Palpation Location C7-T2, L UT Palpation Findings Soft Tissue Tightness, Tenderness PT-OP-K Range of Motion Start: 09/27/21 18:38 Freq: Status: Active Protocol: Document 12/13/21 13:48 LRN (Rec: 12/13/21 16:38 LRN [id number]) Shoulder Goniometric Range of Motion Shoulder Right Active Testing Position Sitting Comments Active shoulder Flex, AB is WNL. Supine shoulder ER is 85 deg's . Left Active Testing Position Sitting Comments Active shoulder Flex, AB is WNL. Supine shoulder ER is 70 deg's . PT-OP-L Special Tests Start: 09/27/21 18:38 Freq: Status: Active Protocol: Document 10/01/21 15:03 LRN (Rec: 10/01/21 16:59 LRN [id number]) Special Tests Cervical Spine Special Tests Upper Limb Tension Test Test Results Positive ulnar n bilaterally and medial n. L UE, neg radial n.test Comments Stretch felt. Vertebral Artery Test Results Negative bilaterally Traction Test Results Onset feeling of warmth f/b tingling in R arm Comments Inconclusive results Foraminal Compression Test Results Negative bilaterally Spurling's Test Test Results Negative bilaterally PT-OP-M Strength Start: 09/27/21 18:38 Freq: Status: Active Protocol: Document 10/01/21 15:03 LRN (Rec: 10/01/21 16:59 LRN [id number]) Cervical Spine Strength Cervical Spine Manual Muscle Testing Testing Position Sitting Comments Generally 5/5 Shoulder Strength Shoulder Manual Muscle Testing Right Flexion 5 Normal Extension 5 Normal Abduction (C5) 5 Normal Adduction 5 Normal External Rotation 5 Normal Internal Rotation 5 Normal Left Flexion 5 Normal Extension 5 Normal Abduction (C5) 5 Normal Adduction 4 Good External Rotation 5 Normal Internal Rotation 5 Normal Comments Pain in medial border of scapula with MMT of shoulder flex & IR Elbow/Forearm Strength Elbow and Forearm Manual Muscle Testing Right Flexion (C6) 5 Normal Extension (C7) 5 Normal Left Flexion (C6) 5 Normal Extension (C7) 4 Good PT-OP-Q Treatments Start: 09/27/21 18:38 Freq: Status: Active Protocol: Document 12/30/21 16:04 AW (Rec: 12/30/21 16:57 AW [id number]) Cardio Equipment Upper Body Ergometer (UBE) Duration (Minutes) 6 RPM 75 Seat Position 11 Height 3 Other 2' fwd/bwd working at 35-36 rpm Therapeutic Exercises Supine Exercises pec stretch Supine Exercise Name pec stretch Side bilateral Equipment Used black foam roll; Comments snow rosaura movement > nataly [place] posture press/low trap activation Supine Exercise Name posture press/low trap activation Reps/Minutes 5SH x 10 Alternate arm lifts Supine Exercise Name Alternate arm lifts - full flexion Side bilateral Equipment Used 3#, foam roll Reps/Minutes 10x 2 Sidelying Exercises open book Sidelying Exercise Name open book Side bilateral Resistance AROM Reps/Minutes x8 Sitting Exercises FB T/S flex stretch Sitting Exercise Name MWM: PA of T1, T2 with trunk flex (arms btn legs) Reps/Minutes 3-5 sec stretch x 10, 2 sets Standing Exercises wall push up Standing Exercise Name wall push up Equipment Used feet ~2.5' from wall Reps/Minutes 2x10 Comments consider Bosu next visit Shoulder rolls Standing Exercise Name Fwd/Bkwd shoulder rolls - after ex Side bilateral Reps/Minutes 10x Manual Therapy Treatment Soft Tissue Mobilization rhomboids Body Location rhomboids (l>r) Mobilization Type Strumming,Sustained Pressure Intensity/Depth Moderate Body Position Sitting Paraspinals Body Location C6, C7, T1 C/S parapinals R>L Mobilization Type Strumming,Sustained Pressure Intensity/Depth Moderate Body Position Prone Joint Mobilizations C7, T1 Direction PA - oscillations Grade II Body Position Prone PT-OP-T Assessment and Plan Start: 09/27/21 18:38 Freq: Status: Active Protocol: Document 12/30/21 16:04 AW (Rec: 12/30/21 16:57 AW [id number]) Physical Therapy Assessment Goals Four Impairment Decreased L UE strength Impairment L wrist flex is 4-/5 L shoulder IR is 4-/5. 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 LTG Duration 01/29/22 Three Impairment Decreased L UE function ( QUICKdash score 68). Impairment Quickdash: 60-79% impaired ( score 60-70). Short Term Goal (STG) Pt will be able to report improved use of her L dominant hand with more accuracy with brushing of teeth. (10/18/21: Using L arm to brush teeth and back to [facility] 1/2 the time). (10/18/21: Lifting light load without thinking). STG Duration 11/15/21 (10/18/21: MET GOAL Prison Goal (LTG) Pt will be able to type on computer with accuracy of prior function. (10/18/21: Can type 10 minutes before the hands go numb). 10/28/21 - Typed an entire paper >30 minutes without numbness in hands. (12/13/21: Pt back to prior function speed with typing) LTG Duration 12/30/21 (12/13/21: MET GOAL) Two Impairment Decreased ability to sleep at night due to L shoulder pain. Short Term Goal (STG) Pt will be educated in proper nighttime posturing for sleep to minimize L shoulder pain. STG Duration 10/11/21 (10/12/21: MET GOAL) Licensed And Certified Midwife Goal (LTG) Pt will be able to improve ability to sleep at night to 6 -7 hrs. LTG Duration 12/30/21 (10/18/21: MET GOAL) One Impairment Pt lacks appropriates self care HEP. Short Term Goal (STG) Pt will be educated in proper head/neck posturing. STG Duration 10/18/21 (10/12/21: MET GOAL) Licensed And Certified Midwife Goal (LTG) Pt will be independent in a self care HEP shoulder & elbow strengthening and ex's to assist in proper posturing. (10/15/21: I/S in fwd shoulder rolls to relieve tension in Rhomboids). (10/21/21: I/S pt in passive Rhomboid stretching by tucking chin and forward bending to tolerance). LTG Duration 01/29/22 (10/21/21: Progressed) Assessment Summary Assessment Pt responds well to manual therapy with report of decreased sensation disturbance in left arm as she leaves. She has scheduling conflicts moving forward and is taking a break therapy. Plan to leave chart open one month. Will discharge if pt schedules no more appointments by mid-February. Physical Therapy Plan Frequency and Duration Frequency of Treatment 1-2 times per week Plan of Care Start Date 12/13/21 Plan of Care End Date 01/29/22 Therapeutic Interventions Therapeutic Interventions Home Exercise Program,Joint Mobilizations,Manual Therapy, Patient/Caregiver Education, Self-Care/Home Management,Soft Tissue Mobilization, Therapeutic Exercises Modalities Cold Pack/Ice Massage,Electric Stimulation,Hot Packs, Ultrasound Next Visit Focus/Plan Next Note Type Treatment Note Next Visit Plan Assess OH press; Issue HEP for shoulder and elbow, wrist strengthening (LTG #1). Focus on L UE strengthening for sewing needs in addition to scapular stabilization with inhibition of upper traps, STM cervical/thoracic as needed for pain mgmt.
--- NOTE | 2022-07-05 08:43 | PT.OPDS ---
Current Diagnoses Pain in left shoulder (12/30/21) Radiculopathy, site unspecified (12/30/21) Cervicalgia (12/30/21) Muscle weakness (generalized) (12/30/21) Other muscle spasm (12/30/21) Visit Care Team Role Provider Type Adam Mcgovern MD Family Provider Physician Primary Care Provider Specialty: Family Practice Address: [address] [place] [address], [address] Email: [email or web address] Attending Provider Advanced Enamel Buffer Referring Provider Specialty: Medical Address: [facility], [address] [place], [address] Email: [email or web address] Visit Number Visit Number 15 Discharge Summary PT-OP-B Current Condition Start: 09/27/21 18:38 Freq: Status: Active Protocol: Document 10/01/21 15:03 LRN (Rec: 10/01/21 16:59 LRN [id number]) Current Condition History of Current Condition Onset Date Jul 28, 2021 Current Complaints Severe pain down the L arm and weakness, numbness in hands. History of Current Condition L shoulder and neck pain. Covid in June. Was constantly fatigued, got booster and within 48 hours could hardly move the L shoulder. In August, started to get tingling and numbness in the lateral hands (little fingers on lateral sides and tips of 4th & 5th fingers) and was told it was inflammation in the neck and has radiated into the shoulders. States she has sheets of white pain down the entire L arm, like she hit her funny bone. The more active she is, the more pain she has. Sleeping is very difficult because she is a side sleeper and has had to adjust her sleeping to being on her back. She also has heart arrhythmia onset due to COVID. MH and placing her arm overhead helps decrease the pain. Prior Treatments and Tests Gabapentin to help sleep at night. Future Testing and Treatments Planned Massage therapy & accupuncture appointments. Treatment Goals Patient/Caregiver Goals Pt goal with therapy is to improve ability to sleep, and be able to use L dominant hand correctly, and be able to type on computer. Prior Functional Status Baseline Function- ADL's Independent Baseline Function- Mobility Independent Baseline Function- Work/School Independent Baseline Function- Other Able to sleep on 6-7 hrs at night on sides. Able to get up/down from floor without difficulty Current Functional Impairments (Reported) Functional Limitations- ADL's Not able to sleep on sides due to L shoulder pain. Not able to get up/down from floor. 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 Functional Limitations- Recreation/ Can't do sewing due to pain Hobbies and low stamina. Personal Factors Other Personal Factors That May Effect Hx of chronic headaches. 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 L handed dominant. PT-OP-C Subjective Start: 09/27/21 18:38 Freq: Status: Active Protocol: Document 12/30/21 16:04 AW (Rec: 12/30/21 16:57 AW [id number]) OP-PT Subjective Patient Comments Patient Comments Pt has had a stressful week and has not slept well. Her left arm feels dipped in ice water. PT-OP-E Functional Tests Start: 09/27/21 18:38 Freq: Status: Active Protocol: Document 12/13/21 13:48 LRN (Rec: 12/13/21 16:38 LRN [id number]) Functional Tests Apley's Scratch Test Action 1- Left 2 above inferior angle of scapula Action 1- Right 2 above inferior angle of scapula Action 2- Left T2 Action 2- Right T2 Action 3- Left T8 Action 3- Right T8 PT-OP-H Neuro Start: 09/27/21 18:38 Freq: Status: Active Protocol: Document 10/01/21 15:03 LRN (Rec: 10/01/21 16:59 LRN [id number]) Sensation Evaluation Gross Sensation Gross Sensation Left UE Impaired,Right UE Impaired Sensation Description Tingling,Pins & [place] Dermatome Impairments C8 Deep Tendon Reflex & Clonus Assessment Deep Tendon Reflex Bilateral Tricep Deep Tendon Reflex 1+ Diminished Bilateral Brachioradialis Deep Tendon Reflex 2+ Normal Roddy Biceps Deep Tendon Reflex 3+ Normal But Brisk PT-OP-J Posture/Palpation/Skin Start: 09/27/21 18:38 Freq: Status: Active Protocol: Document 10/01/21 15:03 LRN (Rec: 10/01/21 16:59 LRN [id number]) Posture Evaluation Position Standing Head/C-Spine Posture Forward Head T-Spine Posture Flattened L-Spine Posture Increased Lordosis Shoulder Posture (L) Forward Arm Posture (L) Internally Rotated,(R) Internally Rotated Pelvis Posture (L) Iliac Crest Superior Knee Posture (L) Genu Valgus,(R) Genu Valgus Palpation Assessment Location R Scapula Palpation Location Scapular positioning Palpation Details Protracted L Scapula Palpation Location Medial border Palpation Findings Muscle Guarding,Tenderness Posterior Neck Palpation Location C7-T2, L UT Palpation Findings Soft Tissue Tightness, Tenderness PT-OP-K Range of Motion Start: 09/27/21 18:38 Freq: Status: Active Protocol: Document 12/13/21 13:48 LRN (Rec: 12/13/21 16:38 LRN [id number]) Shoulder Goniometric Range of Motion Shoulder Right Active Testing Position Sitting Comments Active shoulder Flex, AB is WNL. Supine shoulder ER is 85 deg's . Left Active Testing Position Sitting Comments Active shoulder Flex, AB is WNL. Supine shoulder ER is 70 deg's . PT-OP-L Special Tests Start: 09/27/21 18:38 Freq: Status: Active Protocol: Document 10/01/21 15:03 LRN (Rec: 10/01/21 16:59 LRN [id number]) Special Tests Cervical Spine Special Tests Upper Limb Tension Test Test Results Positive ulnar n bilaterally and medial n. L UE, neg radial n.test Comments Stretch felt. Vertebral Artery Test Results Negative bilaterally Traction Test Results Onset feeling of warmth f/b tingling in R arm Comments Inconclusive results Foraminal Compression Test Results Negative bilaterally Spurling's Test Test Results Negative bilaterally PT-OP-M Strength Start: 09/27/21 18:38 Freq: Status: Active Protocol: Document 10/01/21 15:03 LRN (Rec: 10/01/21 16:59 LRN [id number]) Cervical Spine Strength Cervical Spine Manual Muscle Testing Testing Position Sitting Comments Generally 5/5 Shoulder Strength Shoulder Manual Muscle Testing Right Flexion 5 Normal Extension 5 Normal Abduction (C5) 5 Normal Adduction 5 Normal External Rotation 5 Normal Internal Rotation 5 Normal Left Flexion 5 Normal Extension 5 Normal Abduction (C5) 5 Normal Adduction 4 Good External Rotation 5 Normal Internal Rotation 5 Normal Comments Pain in medial border of scapula with MMT of shoulder flex & IR Elbow/Forearm Strength Elbow and Forearm Manual Muscle Testing Right Flexion (C6) 5 Normal Extension (C7) 5 Normal Left Flexion (C6) 5 Normal Extension (C7) 4 Good PT-OP-T Assessment and Plan Start: 09/27/21 18:38 Freq: Status: Active Protocol: Document 07/05/22 08:41 AW (Rec: 07/05/22 08:43 AW [id number]) Physical Therapy Assessment Goals Four Impairment Decreased L UE strength Impairment L wrist flex is 4-/5 L shoulder IR is 4-/5. 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 LTG Duration 01/29/22 Three Impairment Decreased L UE function ( QUICKdash score 68). Impairment Quickdash: 60-79% impaired ( score 60-70). Short Term Goal (STG) Pt will be able to report improved use of her L dominant hand with more accuracy with brushing of teeth. (10/18/21: Using L arm to brush teeth and back to [facility] 1/2 the time). (10/18/21: Lifting light load without thinking). STG Duration 11/15/21 (10/18/21: MET GOAL Insurance Examining Clerk Goal (LTG) Pt will be able to type on computer with accuracy of prior function. (10/18/21: Can type 10 minutes before the hands go numb). 10/28/21 - Typed an entire paper >30 minutes without numbness in hands. (12/13/21: Pt back to prior function speed with typing) LTG Duration 12/30/21 (12/13/21: MET GOAL) Two Impairment Decreased ability to sleep at night due to L shoulder pain. Short Term Goal (STG) Pt will be educated in proper nighttime posturing for sleep to minimize L shoulder pain. STG Duration 10/11/21 (10/12/21: MET GOAL) Mcc Goal (LTG) Pt will be able to improve ability to sleep at night to 6 -7 hrs. LTG Duration 12/30/21 (10/18/21: MET GOAL) One Impairment Pt lacks appropriates self care HEP. Short Term Goal (STG) Pt will be educated in proper head/neck posturing. STG Duration 10/18/21 (10/12/21: MET GOAL) Mcc Goal (LTG) Pt will be independent in a self care HEP shoulder & elbow strengthening and ex's to assist in proper posturing. (10/15/21: I/S in fwd shoulder rolls to relieve tension in Rhomboids). (10/21/21: I/S pt in passive Rhomboid stretching by tucking chin and forward bending to tolerance). LTG Duration 01/29/22 (10/21/21: Progressed) Physical Therapy Plan Frequency and Duration Frequency of Treatment 1-2 times per week Plan of Care Start Date 12/13/21 Plan of Care End Date 01/29/22 Discharge Physical Therapy Discharge Reasons No Longer Attending PT Discharge Comments Pt was last seen in PT January 2022. She noted she had scheduling conflicts but chart was to be left open one month in the event she was able to schedule more. Discussed discharge with pt at last visit and she was agreeable if unable to schedule more. Pt is discharged from this plan of care which on .
== END 2022-07-06 14:22 | disposition home or self-care (01) ==
LOC: PHYS 16:00
PROVIDERS: Family Provider Family Medicine; PCP Family Medicine; Referring Provider Physician Assistant; Visit Provider Physician Assistant
DX: M62.838 Other muscle spasm (principal); M54.2 Cervicalgia; M25.512 Pain in left shoulder; M54.10 Radiculopathy, site unspecified; M62.81 Muscle weakness (generalized)
CPT/HCPCS: 97110; 97140; 97162; 97535

== ENCOUNTER → 2022-01-22 10:44 | Outpatient (CLI) | payer OTHER, SELFPAY ==
[2022-01-22 11:05] LABS: Add Manual Diff / Slide Review NO; Basophils Absolute Auto 100 /uL (0-100); Basophils Percent Auto 0.7 % (0-2); Eosinophils Absolute Auto 400 /uL (0-450); Eosinophils Percent Auto 5.4 % (2-4); Hemoglobin 13.8 g/dL (12.0-16.0); Lymphocytes Absolute Auto 1200 /uL (1100-4500); Lymphocytes Percent Auto 16.4 % (25-40); Mean Corpuscular HGB Conc 35.3 % (30-36); Mean Corpuscular Hemoglobin 28.2 PG (26-34); Mean Corpuscular Volume 79.9 fL (80-100); Monocytes Absolute Auto 400 /uL (0-900); Monocytes Percent Auto 5.5 % (3-14); Neutrophils Absolute Auto 5300 /uL (1500-7000); Platelet Count 316 X10^3/uL (150-400); Red Blood Cell Count 4.87 X10^6/uL (4.0-5.2); Red Cell Distribution Width 13.4 % (11.6-14.8); White Blood Cell Count 7.3 X10^3/uL (4.5-11.0)
[2022-01-22 11:26] LABS: Alanine Aminotransferase 23 IU/L (<35); Albumin 3.9 g/dL (3.5-5.0); Albumin Globulin Ratio 1.4 (1.0-2.8); Alkaline Phosphatase 65 U/L (38-126); Aspartate Aminotransferase 25 IU/L (14-36); BUN Creatinine Ratio 20.8 (6-22); Bilirubin Total 0.5 mg/dL (0.2-1.3); Blood Urea Nitrogen 16 mg/dL (7-17); Calcium 9.5 mg/dL (8.4-10.2); Carbon Dioxide 27 mmol/L (22-32); Chloride 108 mmol/L (98-107); Cholesterol 138 mg/dL (140-199); Estimated Glomerular Filt Rate > 60 mL/min (>60); Globulin 2.8 g/dL (1.7-4.1); Glucose 117 mg/dL (70-100); HDL Cholesterol 41 mg/dL (40-60); HEMOLYSIS < 15 (0-50); LDL Cholesterol Calculated 68 mg/dL (<100); Potassium 3.6 mmol/L (3.4-5.1); Sodium 140 mmol/L (137-145); Total Protein 6.7 g/dL (6.3-8.2); Triglycerides 145 mg/dL (35-150)
[2022-01-22 11:41] LABS: Follicle Stimulating Hormone 6.94 mIU/mL; Progesterone, Total 0.65 ng/mL
[2022-01-22 11:56] LABS: Estradiol, Total 40.5 pg/mL
[2022-01-22 12:05] LABS: Hemoglobin A1C% w Est Avg Glu 5.8 % (4.0-6.0)
== END ==
PROVIDERS: Family Provider Family Medicine; PCP Family Medicine; Referring Provider Physician Assistant; Visit Provider Physician Assistant
DX: N95.1 Menopausal and female climacteric states (principal); R23.2 Flushing; R61 Generalized hyperhidrosis; E78.2 Mixed hyperlipidemia; I10 Essential (primary) hypertension; Z13.0 Encounter for screening for diseases of the blood and blood-forming organs and certain disorders involving the immune mechanism; Z13.1 Encounter for screening for diabetes mellitus; Z68.38 Body mass index [BMI] 38.0-38.9, adult
CPT/HCPCS: 36415; 80053; 80061; 82670; 83001; 83036; 84144; 85025

== ENCOUNTER → 2022-04-28 11:02 | Outpatient (CLI) | payer OTHER, SELFPAY ==
[2022-04-28 12:50] LABS: BUN Creatinine Ratio 29.6 (6-22); Blood Urea Nitrogen 24 mg/dL (7-17); Calcium 9.4 mg/dL (8.4-10.2); Carbon Dioxide 29 mmol/L (22-32); Chloride 101 mmol/L (98-107); Cholesterol 190 mg/dL (140-199); Estimated Glomerular Filt Rate > 60 mL/min (>60); Glucose 95 mg/dL (70-100); HDL Cholesterol 57 mg/dL (40-60); LDL Cholesterol Calculated 87 mg/dL (<100); Potassium 4.2 mmol/L (3.4-5.1); Sodium 138 mmol/L (137-145); Triglycerides 231 mg/dL (35-150)
[2022-04-28 12:52] LABS: HEMOLYSIS 166 (0-50)
== END ==
PROVIDERS: Family Provider Family Medicine; PCP Family Medicine; Referring Provider Physician Assistant; Visit Provider Physician Assistant
DX: E78.2 Mixed hyperlipidemia (principal); H69.82 Other specified disorders of Eustachian tube, left ear; H92.02 Otalgia, left ear; I10 Essential (primary) hypertension
CPT/HCPCS: 36415; 80048; 80061

== ENCOUNTER → 2022-08-05 15:15 | Outpatient (CLI) | payer OTHER, SELFPAY ==
--- NOTE | 2022-08-05 | DI.MG.S_ITS ---
BILATERAL DIGITAL SCREENING MAMMOGRAM 3D/2D WITH CAD: 08/05/2022 CLINICAL: Routine screening. Comparison is made to exam dated: 06/20/2019 mammogram - [facility]. There are scattered areas of fibroglandular density in both breasts (category b / 25%-50% glandular tissue). Current study was also evaluated with a Computer Aided Detection (CAD) system. No significant masses, calcifications, or other findings are seen in either breast. There has been no significant interval change. IMPRESSION: NEGATIVE There is no mammographic evidence of malignancy. A 1 year screening mammogram is recommended. Based on the Tyrer Cuzick model (a risk assessment model) the patient's lifetime risk is 9.8% and her 10 year risk is 1.9%. According to the ACR, ACS, and NCCN guidelines, an annual breast MRI exam along with mammogram is recommended if the patient's lifetime risk is 20% or greater. This exam was interpreted at Station ID: [id number]. NOTE: For mammograms, a report in lay terms will be sent to the patient. Approximately 15% of breast malignancies will not be visualized mammographically. In the management of a palpable breast mass, a negative mammogram must not discourage biopsy of a clinically suspicious lesion. Electronically Signed By: Christiana phillips/azeb:08/05/2022 18:11:59 copy to: Adam Mcgovern letter sent: Normal Exam ACR BI-RADS Category 1: Negative [id number]
== END ==
PROVIDERS: Family Provider Family Medicine; PCP Family Medicine; Referring Provider Family Medicine; Visit Provider Family Medicine
DX: Z12.31 Encounter for screening mammogram for malignant neoplasm of breast (principal)
CPT/HCPCS: 77063; 77067

== ENCOUNTER → 2022-08-06 09:49 | Outpatient (CLI) | payer OTHER, SELFPAY ==
[2022-08-06 11:24] LABS: Cholesterol 228 mg/dL (140-199); HDL Cholesterol 30 mg/dL (40-60); LDL Cholesterol Calculated 133 mg/dL (<100); Triglycerides 323 mg/dL (35-150)
== END ==
PROVIDERS: Family Provider Family Medicine; PCP Family Medicine; Referring Provider Physician Assistant; Visit Provider Physician Assistant
DX: E78.2 Mixed hyperlipidemia (principal)
CPT/HCPCS: 36415; 80061

== ENCOUNTER → 2022-09-19 09:34 | Outpatient (CLI) | payer OTHER, SELFPAY ==
[2022-09-19 10:59] LABS: Cholesterol 181 mg/dL (140-199); HDL Cholesterol 38 mg/dL (40-60); LDL Cholesterol Calculated 120 mg/dL (<100); Triglycerides 117 mg/dL (35-150)
== END ==
PROVIDERS: Family Provider Family Medicine; PCP Family Medicine; Referring Provider Physician Assistant; Visit Provider Physician Assistant
DX: E78.2 Mixed hyperlipidemia (principal)
CPT/HCPCS: 36415; 80061

== ENCOUNTER → 2023-01-04 09:57 | Outpatient (CLI) | payer OTHER, SELFPAY ==
--- NOTE | 2023-01-04 10:37 | DI.RAD.S_ITS ---
PROCEDURE: XR CHEST 2V INDICATIONS: pre-op bariatric surgery TECHNIQUE: 2 views of the chest were acquired. COMPARISON: [facility], , XR CHEST 2V, 08/20/2021, 15:07. FINDINGS: Surgical changes and devices: None. Lungs and pleura: Lungs are clear. No pleural effusions or pneumothorax. Mediastinum: Mediastinal contours are normal. Heart size is normal. Bones and chest wall: No suspicious bony abnormalities. Soft tissues appear unremarkable. IMPRESSION: No acute cardiopulmonary disease. Dictated by: Jesús Chin M.D. on 01/04/2023 at 15:21 Approved by: Jesús Chin M.D. on 01/04/2023 at 15:21
[2023-01-04 10:47] LABS: Add Manual Diff / Slide Review NO; Basophils Absolute Auto 0 /uL (0-100); Basophils Percent Auto 0.5 % (0-2); Eosinophils Absolute Auto 300 /uL (0-450); Eosinophils Percent Auto 4.2 % (2-4); Hematocrit 39.7 % (36-46); Hemoglobin 13.8 g/dL (12.0-16.0); Lymphocytes Absolute Auto 1100 /uL (1100-4500); Lymphocytes Percent Auto 15.7 % (25-40); Mean Corpuscular HGB Conc 34.8 % (30-36); Mean Corpuscular Hemoglobin 27.6 PG (26-34); Mean Corpuscular Volume 79.3 fL (80-100); Monocytes Absolute Auto 300 /uL (0-900); Monocytes Percent Auto 4.4 % (3-14); Neutrophils Absolute Auto 5100 /uL (1500-7000); Neutrophils Percent Auto 75.2 % (50-75); Platelet Count 343 X10^3/uL (150-400); Red Cell Distribution Width 13.7 % (11.6-14.8); White Blood Cell Count 6.7 X10^3/uL (4.5-11.0)
[2023-01-04 10:55] LABS: Alanine Aminotransferase 43 IU/L (<35); Albumin 4.1 g/dL (3.5-5.0); Albumin Globulin Ratio 1.3 (1.0-2.8); Alkaline Phosphatase 52 U/L (38-126); Aspartate Aminotransferase 32 IU/L (14-36); BUN Creatinine Ratio 21.1 (6-22); Bilirubin Total 0.4 mg/dL (0.2-1.3); Blood Urea Nitrogen 16 mg/dL (7-17); Calcium 9.3 mg/dL (8.4-10.2); Carbon Dioxide 26 mmol/L (22-32); Chloride 104 mmol/L (98-107); Estimated Glomerular Filt Rate > 60 mL/min (>60); Globulin 3.2 g/dL (1.7-4.1); Glucose 110 mg/dL (70-100); HEMOLYSIS < 15 (0-50); Magnesium 1.9 mg/dL (1.6-2.3); Potassium 3.2 mmol/L (3.4-5.1); Sodium 139 mmol/L (137-145); Total Protein 7.3 g/dL (6.3-8.2)
[2023-01-04 10:58] LABS: HEMOLYSIS < 15 (0-50); Iron 87 ug/dL (37-170)
[2023-01-04 11:01] LABS: Prealbumin 24.8 mg/dL (17.6-36.0)
[2023-01-04 11:09] LABS: Percent Iron Saturation 24 % (15-50); Total Iron Binding Capacity 363 ug/dL (265-497); Transferrin 280 mg/dL (206-381)
[2023-01-04 11:16] LABS: Vitamin D 25 Hydroxy (D3) 31.9 ng/mL (30.0-100.0)
[2023-01-04 11:29] LABS: Ferritin 37 ng/mL (6-137)
[2023-01-04 11:30] LABS: TSH w/ Reflex to FT4 0.74 uIU/mL (0.47-4.68)
[2023-01-04 12:00] LABS: Folate > 20.0 ng/mL (2.76-20.0); Vitamin B12 712 pg/mL (239-931)
[2023-01-05 15:51] LABS: x Labcorp Estim. Avg Glu (eAG) 134 mg/dL (.); x Labcorp Hemoglobin A1c 6.3 % (4.8-5.6)
[2023-01-06 16:57] LABS: Calcium 9.7 mg/dL (8.7-10.2); Parathyroid Hormone, Intact 27 pg/mL (15-65)
[2023-01-07 15:08] LABS: Cholesterol, Total 190 mg/dL (100-199); HDL-Cholesterol 44 mg/dL (>39); HDL-Particle (Total) 35.3 umol/L (>=30.5); LDL Particle 1516 nmol/L (<1000); LDL Size 20.9 nm (>20.5); LDL-Cholsterol 119 mg/dL (0-99); LP-IR Score 90 (<=45); Small LDL- Particle 706 nmol/L (<=527); Triglycerides 151 mg/dL (0-149)
[2023-01-10 11:57] LABS: Vitamin B1 373.9 nmol/L (66.5-200.0)
[2023-01-16 11:12] LABS: Vitamin A 54.5 ug/dL (20.1-62.0)
== END ==
PROVIDERS: Family Provider Family Medicine; PCP Family Medicine; Referring Provider Physician Assistant; Visit Provider Physician Assistant
DX: Z01.818 Encounter for other preprocedural examination (principal); Z68.39 Body mass index [BMI] 39.0-39.9, adult; Z71.89 Other specified counseling
CPT/HCPCS: 36415; 71046; 80053; 80061; 82306; 82310; 82607; 82728; 82746; 83036; 83540; 83550; 83704; 83735; 83970; 84134; 84425; 84443; 84590; 85025

== ENCOUNTER → 2023-11-21 16:57 | Outpatient (CLI) | payer OTHER, SELFPAY ==
[2023-11-21 17:51] LABS: Add Manual Diff / Slide Review NO; Albumin 4.5 g/dL (3.5-5.0); Albumin Globulin Ratio 1.2 (1.0-2.8); Alkaline Phosphatase 42 U/L (38-126); Basophils Absolute Auto 100 /uL (0-100); Basophils Percent Auto 0.8 % (0-2); Bilirubin Total 0.9 mg/dL (0.2-1.3); Blood Urea Nitrogen 18 mg/dL (7-17); Calcium 9.7 mg/dL (8.4-10.2); Carbon Dioxide 24 mmol/L (22-32); Chloride 105 mmol/L (98-107); Eosinophils Absolute Auto 400 /uL (0-450); Eosinophils Percent Auto 5.3 % (2-4); Estimated Glomerular Filt Rate > 60 mL/min (>60); Globulin 3.9 g/dL (1.7-4.1); Glucose 104 mg/dL (70-100); Hematocrit 41.5 % (36-46); Hemoglobin 14.2 g/dL (12.0-16.0); Lymphocytes Absolute Auto 1300 /uL (1100-4500); Lymphocytes Percent Auto 15.9 % (25-40); Mean Corpuscular HGB Conc 34.2 % (30-36); Mean Corpuscular Hemoglobin 27.2 PG (26-34); Mean Corpuscular Volume 79.5 fL (80-100); Monocytes Absolute Auto 500 /uL (0-900); Monocytes Percent Auto 6.3 % (3-14); Neutrophils Absolute Auto 6100 /uL (1500-7000); Neutrophils Percent Auto 71.7 % (50-75); Platelet Count 371 X10^3/uL (150-400); Red Blood Cell Count 5.22 X10^6/uL (4.0-5.2); Red Cell Distribution Width 14.5 % (11.6-14.8); Sodium 137 mmol/L (137-145); Total Protein 8.4 g/dL (6.3-8.2); White Blood Cell Count 8.4 X10^3/uL (4.5-11.0)
[2023-11-21 17:52] LABS: HEMOLYSIS 153 (0-50); Potassium 3.9 mmol/L (3.4-5.1)
[2023-11-21 17:53] LABS: Alanine Aminotransferase 37 IU/L (<35); Aspartate Aminotransferase 49 IU/L (14-36)
== END ==
LOC: LAB 16:59
PROVIDERS: Family Provider Family Medicine; PCP Family Medicine; Referring Provider Physician Assistant; Visit Provider Physician Assistant
DX: Z01.812 Encounter for preprocedural laboratory examination (principal)
CPT/HCPCS: 36415; 80053; 85025

== ENCOUNTER → 2024-05-16 15:39 | Outpatient (CLI) | payer OTHER, SELFPAY ==
--- NOTE | 2024-05-16 15:40 | DI.US.S_ITS ---
PROCEDURE: US ABDOMEN LIMITED INDICATIONS: XIPHOID PROCESS LUMP TECHNIQUE: Real-time focused scanning was performed of the abdomen, with image documentation. COMPARISON: None. FINDINGS: Ultrasound examination of anterior upper abdominal wall just below the level of the xiphoid process shows no discrete soft tissue mass or drainable fluid collection. IMPRESSION: No abnormality is noted in anterior upper abdominal/chest wall at patient's reported area of palpable lump. Dictated by: Richy Washington M.D. on 05/16/2024 at 18:37 Approved by: Richy Washington M.D. on 05/16/2024 at 18:38
== END ==
LOC: US 15:40
PROVIDERS: Family Provider Family Medicine; PCP Family Medicine; Referring Provider Physician Assistant; Visit Provider Physician Assistant
DX: R22.2 Localized swelling, mass and lump, trunk (principal)
CPT/HCPCS: 76705

== ENCOUNTER → 2024-06-08 09:13 | Outpatient (CLI) | payer OTHER, SELFPAY ==
[2024-06-08 09:47] LABS: Add Manual Diff / Slide Review NO; Basophils Absolute Auto 0 /uL (0-100); Basophils Percent Auto 0.5 % (0-2); Eosinophils Absolute Auto 300 /uL (0-450); Eosinophils Percent Auto 4.6 % (2-4); Hematocrit 42.7 % (36-46); Hemoglobin 14.4 g/dL (12.0-16.0); Lymphocytes Absolute Auto 1000 /uL (1100-4500); Lymphocytes Percent Auto 14.5 % (25-40); Mean Corpuscular HGB Conc 33.8 % (30-36); Mean Corpuscular Hemoglobin 27.5 PG (26-34); Mean Corpuscular Volume 81.6 fL (80-100); Monocytes Absolute Auto 400 /uL (0-900); Monocytes Percent Auto 5.2 % (3-14); Neutrophils Absolute Auto 5100 /uL (1500-7000); Neutrophils Percent Auto 75.2 % (50-75); Platelet Count 268 X10^3/uL (150-400); Red Blood Cell Count 5.24 X10^6/uL (4.0-5.2); Red Cell Distribution Width 14.4 % (11.6-14.8); White Blood Cell Count 6.8 X10^3/uL (4.5-11.0)
[2024-06-08 09:52] LABS: HEMOLYSIS < 15 (0-50); Iron 84 ug/dL (37-170)
[2024-06-08 09:54] LABS: Alanine Aminotransferase 19 IU/L (<35); Albumin 4.1 g/dL (3.5-5.0); Albumin Globulin Ratio 1.5 (1.0-2.8); Alkaline Phosphatase 61 U/L (38-126); Aspartate Aminotransferase 20 IU/L (14-36); BUN Creatinine Ratio 23.2 (6-22); Bilirubin Total 0.6 mg/dL (0.2-1.3); Blood Urea Nitrogen 16 mg/dL (7-17); Calcium 9.7 mg/dL (8.4-10.2); Carbon Dioxide 26 mmol/L (22-32); Chloride 109 mmol/L (98-107); Estimated Glomerular Filt Rate > 60 mL/min (>60); Globulin 2.7 g/dL (1.7-4.1); Glucose 97 mg/dL (70-100); HEMOLYSIS < 15 (0-50); Potassium 4.2 mmol/L (3.4-5.1); Sodium 141 mmol/L (137-145); Total Protein 6.8 g/dL (6.3-8.2)
[2024-06-08 10:03] LABS: Percent Iron Saturation 30 % (15-50); Total Iron Binding Capacity 278 ug/dL (265-497); Transferrin 218 mg/dL (206-381)
[2024-06-08 10:09] LABS: Vitamin D 25 Hydroxy (D3) 50.8 ng/mL (30.0-100.0)
[2024-06-08 10:29] LABS: Ferritin 17 ng/mL (6-137)
[2024-06-08 10:59] LABS: Folate > 20.0 ng/mL (2.76-20.0); Vitamin B12 950 pg/mL (239-931)
[2024-06-09 08:07] LABS: Calcium 9.9 mg/dL (8.7-10.2); Parathyroid Hormone, Intact 29 pg/mL (15-65)
[2024-06-13 10:14] LABS: Vitamin B1 222.4 nmol/L (66.5-200.0)
== END ==
PROVIDERS: Family Provider Family Medicine; PCP Family Medicine; Referring Provider Family Medicine; Visit Provider Family Medicine
DX: Z98.84 Bariatric surgery status (principal); I49.9 Cardiac arrhythmia, unspecified; R60.9 Edema, unspecified
CPT/HCPCS: 36415; 80053; 82306; 82310; 82607; 82728; 82746; 83540; 83550; 83970; 84425; 85025

== ENCOUNTER → 2024-11-21 17:39 | Outpatient (CLI) | payer OTHER, SELFPAY | PROVIDERS: Family Provider Family Medicine; PCP Family Medicine; Visit Provider Physician Assistant | DX: L72.3 Sebaceous cyst (principal) | CPT/HCPCS: 87070; 87075; 87205 ==

== ENCOUNTER → 2024-12-20 06:53 | Outpatient (CLI) | payer OTHER, SELFPAY ==
[2024-12-20 07:43] LABS: Add Manual Diff / Slide Review NO; Basophils Absolute Auto 0 /uL (0-100); Basophils Percent Auto 0.5 % (0-2); Eosinophils Absolute Auto 300 /uL (0-450); Hematocrit 42.9 % (36-46); Hemoglobin 14.7 g/dL (12.0-16.0); Lymphocytes Absolute Auto 1000 /uL (1100-4500); Lymphocytes Percent Auto 17.6 % (25-40); Mean Corpuscular HGB Conc 34.2 % (30-36); Mean Corpuscular Hemoglobin 28.5 PG (26-34); Mean Corpuscular Volume 83.3 fL (80-100); Monocytes Absolute Auto 300 /uL (0-900); Monocytes Percent Auto 5.8 % (3-14); Neutrophils Absolute Auto 3800 /uL (1500-7000); Neutrophils Percent Auto 70.1 % (50-75); Platelet Count 245 X10^3/uL (150-400); Red Blood Cell Count 5.15 X10^6/uL (4.0-5.2); Red Cell Distribution Width 13.3 % (11.6-14.8); White Blood Cell Count 5.4 X10^3/uL (4.5-11.0)
[2024-12-20 08:05] LABS: Alanine Aminotransferase 20 IU/L (<35); Albumin Globulin Ratio 1.5 (1.0-2.8); Alkaline Phosphatase 58 U/L (38-126); Aspartate Aminotransferase 21 IU/L (14-36); BUN Creatinine Ratio 27.9 (6-22); Bilirubin Total 0.7 mg/dL (0.2-1.3); Blood Urea Nitrogen 19 mg/dL (7-17); Calcium 9.2 mg/dL (8.4-10.2); Carbon Dioxide 26 mmol/L (22-32); Chloride 108 mmol/L (98-107); Cholesterol 239 mg/dL (140-199); Estimated Glomerular Filt Rate > 60 mL/min (>60); Globulin 2.7 g/dL (1.7-4.1); Glucose 98 mg/dL (70-100); HDL Cholesterol 46 mg/dL (40-60); HEMOLYSIS < 15 (0-50); Iron 90 ug/dL (37-170); LDL Cholesterol Calculated 170 mg/dL (<100); Sodium 140 mmol/L (137-145); Total Protein 6.7 g/dL (6.3-8.2); Triglycerides 117 mg/dL (35-150)
[2024-12-20 08:34] LABS: TSH w/ Reflex to FT4 0.83 uIU/mL (0.47-4.68)
[2024-12-20 08:39] LABS: Ferritin 19 ng/mL (6-137)
[2024-12-20 09:10] LABS: Folate > 20.0 ng/mL (2.76-20.0); Vitamin B12 873 pg/mL (239-931)
== END ==
PROVIDERS: Family Provider Family Medicine; PCP Family Medicine; Referring Provider Physician Assistant; Visit Provider Physician Assistant
DX: Z98.84 Bariatric surgery status (principal); E78.2 Mixed hyperlipidemia
CPT/HCPCS: 36415; 80053; 80061; 82306; 82310; 82607; 82728; 82746; 83540; 83970; 84425; 84443; 85025